=== PATIENT | male | born 1975 | race Caucasian/White ===

== ENCOUNTER → 2018-07-08 11:33 | Outpatient (CLI) | payer BC, SELFPAY ==
--- NOTE | 2018-07-08 12:35 | EKG12_ITS ---
Test Reason : PRE OP Blood Pressure : / mmHG Vent. Rate : 072 BPM Atrial Rate : 072 BPM P-R Int : 158 ms QRS Dur : 094 ms QT Int : 378 ms P-R-T Axes : 029 030 014 degrees QTc Int : 413 ms Normal sinus rhythm Normal ECG Confirmed by MARYCHUY WEIR, LORENE ([id number]), business editor NEO PRESSLEY ([id number]) on 07/09/2018 10:47:03 AM Referred By: Murray Barkley Confirmed By:LORENE PERRIN MD
[2018-07-08 12:53] LABS: Hematocrit 46.2 % (40-54); Hemoglobin 16.3 g/dl (13.0-16.5); Mean Corp Hgb Conc 35.3 g/gl (32-36); Mean Corpuscular Hgb 33.1 pg (27.0-32.0); Mean Corpuscular Volume 93.7 fL (80-94); Mean Platelet Vol. 10.8 fl (6.2-12.0); Platelet Count 219 K/mm3 (150-450); RBC Distribution Width CV 12.5 % (11.6-14.6); RBC Distribution Width SD 41.9 fl (35.1-43.9); Red Blood Count 4.93 M/mm3 (4.6-6.2); White Blood Count 5.7 K/mm3 (4.4-11.0)
[2018-07-08 12:58] LABS: Scan Indicated on CBC? Y/N NO
[2018-07-08 13:18] LABS: Anion Gap 6 (5-15); BUN 17 mg/dL (7-18); BUN/Creat Ratio 21.5 RATIO (10-20); Calcium,Total 8.9 mg/dL (8.5-10.1); Chloride 108 mmol/L (98-107); Creatinine, Serum 0.79 mg/dL (0.70-1.30); EST Glomerular Filtration Rate 115 mL/min (>60); Est Glom Filt Rate - Afr Amer 140 mL/min (>60); Glucose 101 mg/dL (74-106); Potassium 3.7 mmol/L (3.5-5.1); Sodium Level 141 mmol/L (136-145)
== END ==
PROVIDERS: Family Provider Family Medicine; PCP Family Medicine; Referring Provider Orthopaedic Surgery; Visit Provider Orthopaedic Surgery
DX: Z01.818 Encounter for other preprocedural examination (principal); S46.012A Strain of muscle(s) and tendon(s) of the rotator cuff of left shoulder, initial encounter; X58.XXXA Exposure to other specified factors, initial encounter; Y93.9 Activity, unspecified; Y92.9 Unspecified place or not applicable; Y99.9 Unspecified external cause status; I10 Essential (primary) hypertension; E66.9 Obesity, unspecified
CPT/HCPCS: 36415; 80048; 85027; 93005

== ENCOUNTER → 2019-02-18 15:10 | Outpatient (CLI) | payer BC, SELFPAY ==
--- NOTE | 2019-02-18 10:10 | SEP_PTH ---
PATIENT: DAILY SANDOVAL [facility] U#:[id number] AGE/SX: 49/M ROOM: RE02/18/[address]: Dr. Sherif Farias MD : 1975 BED: DIS: SPEC #: [id number] RECD: 02/19/19 00:00 STATUS: NURA EDWARD #: [id number] DESMOND: 02/18/19 10:[address]: Sherif Farias DEPT: SURGICAL PATHOLOGY RECD BY: Rosales Villavicencio ENTERED: 02/20/19 11:14 SP TYPE: SEPTUM OTHR DR: Dr. Catarino Jewell MD [facility] Tissues: Nasal septum, NOS Procedures: Decalcification bone/plaque Surgery Specimen Level III HEADER OPERATION: Septoplasty, submucous resection of inferior turbinates PRE-OP DIAGNOSIS: Deviated nasal septum, nasal congestion, hypertrophy of nasal turbinates TISSUE SUBMITTED: Septum MICROSCOPIC DIAGNOSIS Nasal septum: Fragments of cartilage and bone, clinically deviated nasal septum. SJ:micheline 02/26/19 MICROSCOPIC DESCRIPTION Slides are reviewed. GROSS DESCRIPTION Received is one container labeled with the patient's name and not further designated. The specimen consists of multiple pieces of bone and cartilage measuring in aggregate 1.5 x 1 x 0.2 cm. The entire specimen is submitted in one cassette after decalcification. / CANDIDO:micheline 02/20/19 TC:5 CPT: 80215, 93149
== END ==
PROVIDERS: Family Provider Family Medicine; PCP Family Medicine; Referring Provider Otolaryngology Otolaryngology/Facial Plastic Surgery; Visit Provider Otolaryngology Otolaryngology/Facial Plastic Surgery
DX: J34.2 Deviated nasal septum (principal); R09.81 Nasal congestion; J34.3 Hypertrophy of nasal turbinates
CPT/HCPCS: 88304; 88311

== ENCOUNTER 2021-02-27 13:06 | Emergency (ER) | payer MEDICAID, SELFPAY ==
[2021-02-27 13:07] VITALS: BP 164/96; PULSE 89; RESP 18; TEMP 36.7; O2SAT 98; BMI 40.0
--- NOTE | 2021-02-27 13:22 | CT_ITS ---
STUDY: CT CHEST, ABDOMEN T PELVIS WITH CONTRAST REASON FOR EXAM: Male, 45 years old. [facility] RADIATION DOSAGE (If Supplied By Facility): CTDIvol = ( 23.48 ) mGy, DLP = ( 2535.45 ) mGycm TECHNIQUE: Transaxial imaging was performed following intravenous administration of IV 100mL Isovue-370. Individualized dose optimization techniques were used for this CT. COMPARISON: No relevant priors. FINDINGS: CHEST The lungs are normal. There is no demonstrated pleural abnormality. Normal heart and pericardium. Normal mediastinum. Normal hilar regions. Normal unenhanced pulmonary arteries. Normal aorta arch and descending thoracic aorta. Normal osseous structures. There is no demonstrated abnormality of the visualized upper abdomen. ABDOMEN The visualized lung bases are unremarkable. The visualized portions of the heart are within normal limits. Normal liver. Normal gallbladder and extrahepatic biliary system. Normal spleen. Normal pancreas. Normal bilateral adrenal glands. Normal right kidney. Normal left kidney. Normal visualized stomach. Normal small intestine. Normal colon. The appendix is visualized and appears normal. Normal abdominal aorta. Normal inferior vena cava. Normal retroperitoneum. Normal abdominal wall. Normal osseous structures. PELVIS Normal urinary bladder. Normal visualized small intestine. Normal visualized colon. There is no pelvic fluid. There is no pelvic lymphadenopathy or mass lesion. Normal visualized pelvic arteries. Normal abdominal wall. Normal osseous structures. CT/CT Chest, Abd, Pel w/Contrast IMPRESSION: Normal enhanced CT chest, abdomen T pelvis examination. Electronically Signed: James Mariee MD at 15:19 EST Tel , Service support ,
--- NOTE | 2021-02-27 13:29 | EDS_ITS ---
HPI History of Present Illness Chief Complaint: Fall Detail of Chief Complaint: Fall off ladder and left chest pain Informant: patient Narrative Narrative: Patient presents to the emergency department with complaint of falling off of a ladder about 2 hours ago. Patient states that he was working at a height of about 14 feet but his foot level was maybe 7 to 10 feet off the ground when he lost his balance and fell onto his left side. He denies striking his head or loss of consciousness. He denies any neck pain. He complains of pain in his left ribs with cough and deep breath and movement. Patient denies significant abdominal pain. He has been ambulatory. He does not want to lay down states that that causes more pain if he tries to lay down. PFSH PFSH Medical History no medical history Home Medications oxycodone-acetaminophen 1 tab PO Q6H PRN PRN 5 Days #20 tablet 02/27/21 [Rx Last Taken Unknown] Allergy/AdvReac Type Severity Reaction Status Date / Time bee venom protein (honey bee) Allergy Anaphylaxis Verified 02/27/21 13:10 Penicillins Allergy Rash Verified 02/27/21 13:10 shellfish derived Allergy Anaphylaxis Verified 02/27/21 13:10 Social History Smoking Status: Unknown if ever smoked ROS ROS ED Constitutional Constitutional ED: Reports systems reviewed and no addt'l complaints, except as documented; Denies body ache(s), change in weight or chills Eyes Eyes: Denies acute decrease in peripheral vision, change in vision, double vision or loss of vision ENT ENT ED: Reports none; Denies ear pain, lip swelling, loss taste/smell, neck pain, otalgia or sore throat Cardiovascular Cardiovascular: Reports none and chest pain; Denies abdominal pain, chest pain with activity, leg edema, lightheadedness, palpitations, rapid heart rate or syncope Respiratory/Chest Respiratory/Chest: Reports none; Denies change in mental status, dry cough, dyspnea, hemoptysis, shortness of breath at rest or shortness of breath with exertion Gastrointestinal Gastrointestinal: Reports none; Denies abdominal pain, change in stool character, diarrhea, hematemesis, hematochezia, melena, rectal bleeding or vomiting Genitourinary Genitourinary ED: Reports none; Denies abdominal discomfort, anuria, dysuria, genital pain or polyuria Musculoskeletal Musculoskeletal: Reports none; Denies arthralgias, back pain, difficulty walking, extremity pain, muscle weakness or myalgias Integumentary Reports none; Denies abscess or rash Neurologic Neurologic: Reports none; Denies abnormal gait, confusion, focal weakness, frequent falls, headache(s), loss of vision, numbness, paresthesias, radicular pain, vertigo or weakness Psychiatric Psychiatric: Reports systems reviewed and no addt'l complaints, except as documented and none; Denies behavioral changes, confusion, difficulty concentrating, hallucinations, suicidal ideation, tactile hallucinations or visual hallucinations Endocrine Endocrinology: Denies none, cold intolerance, excessive sweating, fatigue or heat intolerance Hematologic/Lymphatic Hematologic/Lymphatic: Reports none; Denies anemia, easy bleeding or easy bruising Allergic/Immunologic Allergic/Immunologic ED: Denies as per HPI, none, lip swelling, mouth swelling, throat swelling, tongue swelling or hives EXAM Physical Exam Const Vital Signs: 02/27/21 13:07 02/27/21 13:15 02/27/21 15:31 Temperature 98.0 F Temperature Source Temporal Pulse Rate 89 Respiratory Rate 18 18 Respiratory Effort Short of Breath Labored Blood Pressure 164/96 H Blood Pressure Mean 118 Pulse Ox 98 Oxygen Delivery Method Room Air Positive well nourished and well developed General Appearance ED: well developed and NAD HEENT Reports TM's clear and moist mucous membranes normocephalic and atraumatic; Negative for trauma or tenderness Tympanic Membrane ED: Yes TM's clear Eyes PERRL and EOMs intact bilaterally General Eye ED: Negative for pale conjunctiva or scleral icterus Neck no lymphadenopathy, supple and no JVD General: Negative for tenderness Chest Wall inspection of chest normal and palpation of chest normal Chest: Negative for tenderness Resp normal respiratory effort and clear to auscultation bilaterally Effort and Inspection: Negative for respiratory distress or pain with movement Auscultation: Negative for rhonchi, wheezes or diminished lung sounds Cardio regular rate, regular rhythm, S1 normal heart sound, S2 normal heart sound and no murmurs Peripheral Pulses: pulses 2+ throughout GI normal to inspection, nondistended, normoactive bowel sounds, soft to palpation, non-tender, non-distended and no masses Back/Spine no CVA tenderness and no thoracic nor lumbar tenderness Back/Spine Narrative: Patient with tenderness palpation over the left posterior ribs diffusely. No ecchymosis or bruising noted. There is no crepitus or subcu emphysema noted. Patient has mild CVA tenderness on the left. Extremity normal to inspection General Extremety ED: Negative for edema General Extremity: Negative for edema Neuro oriented x3, CN's II-XII intact bilaterally, no sensory deficits noted and gait normal Sensorium / Orientation: awake, alert, oriented to person, oriented to place and oriented to time Motor Exam: strength 5/5 throughout and strength abnormal Psych mental status grossly normal Skin no rashes or lesions noted and no wounds MDM MDM MDM Narrative Medical decision making narrative: IV line established on arrival. Patient was medicated with Dilaudid and Zofran. He had some relief with that and was able to lay in the bed. He was given a second dose of Dilaudid [address] scan of the abdomen pelvis ordered which radiology read as normal. Patient had a CT scan of the chest also that they read as normal. On my evaluation of the CT however patient definitively has a left posterior nondisplaced rib fracture I believe its rib 6 and I will have radiology look at it again. Clinically he will be treated with pain meds and advised to follow-up with primary care physician. Patient to return if increasing pain, hemoptysis, shortness of breath, or condition worsen anyway. Lab Data Attestation: I reviewed the patient's lab results. Labs: Laboratory Results - last 24 hr 02/27/21 02/27/21 13:40 13:40 WBC 6.2 RBC 4.63 Hgb 15.5 Hct 43.9 MCV 94.8 H MCH 33.5 H MCHC 35.3 RDW Std Deviation 42.4 RDW Coeff of Yuridia 12.3 Plt Count 237 MPV 10.4 Immature Gran % (Auto) 0.800 Neut % (Auto) 59.4 Lymph % (Auto) 29.9 [place] % (Auto) 6.7 Eos % (Auto) 2.9 Baso % (Auto) 0.3 Absolute Neuts (auto) 3.7 Absolute Lymphs (auto) 1.84 Nucleated RBC % 0 Sodium 141 Potassium 4.0 Chloride 109 H Carbon Dioxide 25.0 Anion Gap 7 BUN 19 H Creatinine 0.87 Estim Creat Clear Calc 120.17 Est GFR (MDRD) Af Amer 124 Est GFR (MDRD) Non-Af 102 BUN/Creatinine Ratio 21.9 H Glucose 112 H Calcium 8.6 Radiography Diagnostic Testing: Clinical Impression(s) from Imaging Studies Chest/Abdomen/Pelvis CT 02/27/21 13:22 IMPRESSION: Normal enhanced CT chest, abdomen T pelvis examination. Electronically Signed: James Mariee MD at 15:19 EST Tel , Service support , Discharge Plan Triage Chief Complaint: Fall ED Provider: Mabel Cr Dx/Rx/DC Orders Clinical Impression: Fracture of rib, Fall Instructions: ED Mechanical Fall, ED Rib Fracture Prescriptions: New oxycodone-acetaminophen [oxycodone-acetaminophen] 1 TABLET tablet 1 tab PO Q6H PRN PRN (Reason: pain) 5 Days Qty: 20 RF: 0 Referrals: CHANNING SHIPLEY [Other] Disposition Disposition: Home, Self Care
[2021-02-27] MEDS: HYDROmorphone 1 MG/ML Syringe IV ×2 (13:38→15:31)
[2021-02-27] MEDS: Ondansetron 4 MG/2 ML Vial IV (13:38)
[2021-02-27 13:45] LABS: Absolute Lymphocyte Count 1.84 X10^3/uL (0.83-4.51); Absolute Neutrophil Count 3.7 X10^3/uL (2.0-7.7); Basophil# 0.02 X10^3/uL; Basophil% 0.3 % (0-1); Eosinophil# 0.18 X10^3/uL; Eosinophils% 2.9 % (0-5); Hematocrit 43.9 % (40-54); Hemoglobin 15.5 g/dL (13.0-16.5); Lymphocyte # 1.84 X10^3/ul (0.83-4.51); Lymphocyte % 29.9 % (19-41); Mean Corp Hgb Conc 35.3 g/dL (32-36); Mean Corpuscular Hgb 33.5 pg (27.0-32.0); Mean Corpuscular Volume 94.8 fL (80-94); Mean Platelet Vol. 10.4 fl (6.2-12.0); Monocyte# 0.41 X10^3/uL; Monocyte% 6.7 % (0-10); NRBC Flagged by Analyzer 0 % (0-5); Neutrophil # 3.66 X10^3/uL (2.7-7.7); Neutrophil % 59.4 % (47-70); Platelet Count 237 K/mm3 (150-450); RBC Distribution Width CV 12.3 % (11.6-14.6); RBC Distribution Width SD 42.4 fl (35.1-43.9); Red Blood Count 4.63 M/mm3 (4.6-6.2); White Blood Count 6.2 K/mm3 (4.4-11.0)
[2021-02-27 14:02] LABS: Anion Gap 7 (5-15); BUN 19 mg/dL (7-18); BUN/Creat Ratio 21.9 RATIO (10-20); Calcium,Total 8.6 mg/dL (8.5-10.1); Chloride 109 mmol/L (98-107); Creatinine, Serum 0.87 mg/dL (0.70-1.30); EST Glomerular Filtration Rate 102 mL/min (>60); Est Glom Filt Rate - Afr Amer 124 mL/min (>60); Estimated Creatinine Clearance 120.17 ml/min; Glucose 112 mg/dL (74-106); Sodium Level 141 mmol/L (136-145)
[2021-02-27] MEDS: 0.9% Normal Saline 1,000 ML 150 ML IV (14:14)
[2021-02-27 15:31] VITALS: RESP 18
== END 2021-02-27 16:01 | disposition home or self-care (01) ==
PROVIDERS: Emergency Provider Emergency Medicine; Visit Provider Emergency Medicine
DX: S22.32XA Fracture of one rib, left side, initial encounter for closed fracture (principal); W11.XXXA Fall on and from ladder, initial encounter; Y93.89 Activity, other specified
CPT/HCPCS: 71260; 74177; 80048; 85025; 99283; J7030; Q9967; A4216; J2405

== ENCOUNTER → 2021-08-11 | Outpatient (CLI) | payer OTHER, SELFPAY | END | disposition home or self-care (01) | LOC: SL 20:10 | PROVIDERS: PCP Nurse Practitioner Family; Referring Provider Nurse Practitioner Family; Visit Provider Nurse Practitioner Family | DX: G47.33 Obstructive sleep apnea (adult) (pediatric) (principal) | CPT/HCPCS: 95811 ==

== ENCOUNTER → 2021-08-23 | Outpatient (CLI) | payer OTHER, SELFPAY ==
[2021-08-23 12:26] LABS: Absolute Lymphocyte Count 1.47 X10^3/uL (0.83-4.51); Absolute Neutrophil Count 1.5 X10^3/uL (2.0-7.7); Basophil# 0.02 X10^3/uL; Basophil% 0.6 % (0-1); Eosinophil# 0.15 X10^3/uL; Eosinophils% 4.2 % (0-5); Hematocrit 40.7 % (40-54); Hemoglobin 14.4 g/dL (13.0-16.5); Lymphocyte # 1.47 X10^3/ul (0.83-4.51); Lymphocyte % 41.1 % (19-41); Mean Corp Hgb Conc 35.4 g/dL (32-36); Mean Corpuscular Hgb 34.1 pg (27.0-32.0); Mean Corpuscular Volume 96.4 fL (80-94); Mean Platelet Vol. 11.4 fl (6.2-12.0); Monocyte# 0.39 X10^3/uL; Monocyte% 10.9 % (0-10); NRBC Flagged by Analyzer 0 % (0-5); Neutrophil # 1.54 X10^3/uL (2.7-7.7); Neutrophil % 42.9 % (47-70); Platelet Count 196 K/mm3 (150-450); RBC Distribution Width CV 12.8 % (11.6-14.6); RBC Distribution Width SD 45.7 fl (35.1-43.9); Red Blood Count 4.22 M/mm3 (4.6-6.2); White Blood Count 3.6 K/mm3 (4.4-11.0)
[2021-08-23 12:59] LABS: ALB/GLOB Ratio 1.1 RATIO (0.9-2.4); AST(SGOT) 26 U/L (15-37); Alanine Aminotransfer ALT/SGPT 50 U/L (16-61); Albumin, Serum 3.4 g/dL (3.2-5.0); Alkaline Phosphatase 84 U/L (45-117); Anion Gap 6 (5-15); BUN 16 mg/dL (7-18); BUN/Creat Ratio 18.8 RATIO (10-20); Calcium,Total 8.3 mg/dL (8.5-10.1); Chloride 110 mmol/L (98-107); Cholesterol 167 mg/dL (200); Creatinine, Serum 0.85 mg/dL (0.70-1.30); EST Glomerular Filtration Rate 104 mL/min (>60); Est Glom Filt Rate - Afr Amer 126 mL/min (>60); Globulin 3.1 g/dL (2.2-4.2); Glucose 96 mg/dL (74-106); High Density Lipoprotein 58 mg/dL; Potassium 3.8 mmol/L (3.5-5.1); Protein, Total 6.5 g/dL (6.4-8.2); Sodium Level 139 mmol/L (136-145); Thyroid Stim Hormone (TSH) 1.37 uIU/mL (0.358-3.74); Triglycerides 120 mg/dL; Very Low Density Lipoprotein 24 mg/dL (5-40)
== END | disposition home or self-care (01) ==
LOC: BIMLAB 08:04
PROVIDERS: PCP Nurse Practitioner Family; Visit Provider Nurse Practitioner Family
DX: Z00.00 Encounter for general adult medical examination without abnormal findings (principal); I10 Essential (primary) hypertension; F41.8 Other specified anxiety disorders
CPT/HCPCS: 36415; 80053; 80061; 84443; 85025

== ENCOUNTER → 2022-04-10 | Outpatient (CLI) | payer OTHER, SELFPAY ==
[2022-04-10 12:27] LABS: Absolute Lymphocyte Count 1.62 X10^3/uL (0.83-4.51); Absolute Neutrophil Count 2.3 X10^3/uL (2.0-7.7); Basophil# 0.02 X10^3/uL; Basophil% 0.4 % (0-1); Eosinophil# 0.19 X10^3/uL; Eosinophils% 4.2 % (0-5); Hematocrit 45.7 % (40-54); Hemoglobin 15.3 g/dL (13.0-16.5); Lymphocyte # 1.62 X10^3/ul (0.83-4.51); Lymphocyte % 35.8 % (19-41); Mean Corp Hgb Conc 33.5 g/dL (32-36); Mean Corpuscular Hgb 32.3 pg (27.0-32.0); Mean Corpuscular Volume 96.6 fL (80-94); Mean Platelet Vol. 11.6 fl (6.2-12.0); Monocyte# 0.42 X10^3/uL; Monocyte% 9.3 % (0-10); NRBC Flagged by Analyzer 0 % (0-5); Neutrophil # 2.26 X10^3/uL (2.7-7.7); Neutrophil % 49.9 % (47-70); Platelet Count 193 K/mm3 (150-450); RBC Distribution Width CV 13.1 % (11.6-14.6); RBC Distribution Width SD 46.5 fl (35.1-43.9); Red Blood Count 4.73 M/mm3 (4.6-6.2); White Blood Count 4.5 K/mm3 (4.4-11.0)
== END | disposition home or self-care (01) ==
LOC: BIMLAB 08:11
PROVIDERS: PCP Nurse Practitioner Family; Referring Provider Nurse Practitioner Family; Visit Provider Nurse Practitioner Family
DX: D70.9 Neutropenia, unspecified (principal)
CPT/HCPCS: 36415; 85025

== ENCOUNTER → 2022-04-20 | Outpatient (CLI) | payer OTHER, SELFPAY ==
[2022-04-20 12:23] LABS: Anion Gap 10 (5-15); BUN 15 mg/dL (7-18); BUN/Creat Ratio 13.6 RATIO (10-20); Calcium,Total 9.4 mg/dL (8.5-10.1); Chloride 96 mmol/L (98-107); EST Glomerular Filtration Rate 77 mL/min (>60); Est Glom Filt Rate - Afr Amer 93 mL/min (>60); Glucose 104 mg/dL (74-106); Potassium 3.4 mmol/L (3.5-5.1); Sodium Level 134 mmol/L (136-145)
== END | disposition home or self-care (01) ==
LOC: BIMLAB 08:59
PROVIDERS: PCP Nurse Practitioner Family; Referring Provider Nurse Practitioner Family; Visit Provider Nurse Practitioner Family
DX: I10 Essential (primary) hypertension (principal)
CPT/HCPCS: 36415; 80048

== ENCOUNTER → 2022-05-23 | Outpatient (CLI) | payer OTHER, SELFPAY ==
[2022-05-23 12:43] LABS: Anion Gap 6 (5-15); BUN 16 mg/dL (7-18); Calcium,Total 9.1 mg/dL (8.5-10.1); Chloride 104 mmol/L (98-107); Creatinine, Serum 0.94 mg/dL (0.70-1.30); EST Glomerular Filtration Rate 93 mL/min (>60); Est Glom Filt Rate - Afr Amer 112 mL/min (>60); Glucose 94 mg/dL (74-106); Sodium Level 137 mmol/L (136-145)
[2022-05-23 12:48] LABS: Vitamin B12 620 pg/mL (211-911); Vitamin D,25 Hydroxy 38.8 ng/mL
== END | disposition home or self-care (01) ==
LOC: BIMLAB 10:02
PROVIDERS: PCP Nurse Practitioner Family; Referring Provider Nurse Practitioner Family; Visit Provider Nurse Practitioner Family
DX: I10 Essential (primary) hypertension (principal); E56.9 Vitamin deficiency, unspecified
CPT/HCPCS: 36415; 80048; 82306; 82607

== ENCOUNTER → 2022-06-28 | Outpatient (CLI) | payer OTHER, SELFPAY ==
[2022-06-28 16:03] LABS: Anion Gap 8 (5-15); BUN 13 mg/dL (7-18); BUN/Creat Ratio 14.5 RATIO (10-20); Calcium,Total 9.6 mg/dL (8.5-10.1); Chloride 103 mmol/L (98-107); EST Glomerular Filtration Rate 98 mL/min (>60); Est Glom Filt Rate - Afr Amer 118 mL/min (>60); Glucose 79 mg/dL (74-106); Potassium 3.4 mmol/L (3.5-5.1); Sodium Level 140 mmol/L (136-145)
== END | disposition home or self-care (01) ==
LOC: BIMLAB 12:36
PROVIDERS: PCP Nurse Practitioner Family; Referring Provider Nurse Practitioner Family; Visit Provider Nurse Practitioner Family
DX: E87.6 Hypokalemia (principal)
CPT/HCPCS: 36415; 80048

== ENCOUNTER → 2022-11-10 | Outpatient (CLI) | payer OTHER, SELFPAY ==
[2022-11-10 10:48] LABS: Anion Gap 4 (5-15); BUN 14 mg/dL (7-18); BUN/Creat Ratio 14.7 RATIO (10-20); Calcium,Total 8.7 mg/dL (8.5-10.1); Chloride 111 mmol/L (98-107); Creatinine, Serum 0.95 mg/dL (0.70-1.30); EST Glomerular Filtration Rate 91 mL/min (>60); Est Glom Filt Rate - Afr Amer 110 mL/min (>60); Glucose 96 mg/dL (74-106); Potassium 3.9 mmol/L (3.5-5.1); Sodium Level 141 mmol/L (136-145)
== END | disposition home or self-care (01) ==
LOC: MTLAB 08:38
PROVIDERS: PCP Nurse Practitioner Family; Referring Provider Orthopaedic Surgery; Visit Provider Orthopaedic Surgery
DX: Z51.81 Encounter for therapeutic drug level monitoring (principal); Z79.1 Long term (current) use of non-steroidal anti-inflammatories (NSAID)
CPT/HCPCS: 36415; 80048

== ENCOUNTER 2022-11-27 14:30 | Outpatient (RCR) | payer OTHER, SELFPAY ==
--- NOTE | 2022-11-14 13:44 | HP.PTEVAL_ITS ---
Patient's Visit Information Visit Information Visit Information: DAILY SANDOVAL is a 46 year old M referred to Physical Therapy by Dr. Logan Al DO with a diagnosis of Right Shoulder OA. 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 He has limited his mobility- but he has a lot of pain with it. He pushes through the pain. Saw Dr. Wall last week- had another injection-25% helped- it has taken sharp/stabbing now to constant dull pain. 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 Eases: keeping it close to the body, no lifting, cutting back on chores Best: 02/28. Sharp/Shooting and also dull and achy. Pain is located in the biceps and radiates to the anterior deltoid- has not radiated past the elbow in the last couple of months- right hand dominate. no N/T in the fingers. No increase HACKETT, blurred vision or dizziness. No new neck pain but does have some residual neck pain. 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 He has had x-ray but no MRI at this point. [id number] he had a Bicep Tenodesis and Labral Repair by Dr. Barkley. He is taking Meloxicam which has been helping. Sleep: not recently- side sleeper- with hand over head but not as much anymore. 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 From day of Injury to Back to Normal he feels that its 50% back to normal. PMHx/Meds: no changes than are in the chart. Objective Objective: Posture: FH, RS- can correct but does not maintain- mild guarding of the right UE Gait: good arm swing and trunk rotation Palpation: tender along bicipital groove to the AC joint ROM: Cervical: WFL, Shoulder: WFL in all planes- painful arc in abduction and flexion- and end range IR behind the back, Elbow/Wrist/Hand: WFL Strength: Credit Report Checker: 120 Right , 130 Left, Elbow: 4+/5, Shoulder: Extn: 4+/5, Abd: 4+/5, Add: 4+/5, IR/ER: 4/5, Flex: 4+/5 all with mild discomfort, Scap: fair minus. Flex: UT: mod Levator: mod Special Tests R Shoulder Empty Can - SS: Positive R Shoulder Belly Press - SupScap: Positive R Shoulder Neer - Impingement: Positive R Shoulder Winkler Colten - Impingement: Positive Balance/Special Test Scores Quick DASH Score: 47.7250 Goals Goal 1:: Patient will be I with HEP and progression Goal Time Frame: 4-6 Weeks Goal 2:: Patient will maintain proper posture t/o tx session to demo increased scap s/s Goal Time Frame: 4-6 Weeks Goal 3:: Patient will demo full AROM with the right shoulder without pain Goal Time Frame: 4-6 Weeks Goal 4:: Patient will report 80% improvement Goal Time Frame: 4-6 Weeks Rehabilitation Potential Physical Therapy Diagnosis: Patient presents with hypomobility- he has decreased pain free ROM- scapular strength/stabilization and muscular endurance leading to poor posture and increased pain with ADL's. Rehabilitation Potential: Good Anticipated Interventions Patient/Client Instruction: Educate patient on: Benefits of Fitness Program Therapeutic Exercise to Include: Strength training, Endurance training, Body mechanics, Postural training, Flexibilty training, Dynamic Lumbar Stabilization and Scapular Strength/Stabilization TENS: Yes Cryotherapy (ice pack, ice massage): Yes Thermo therapy (hot pack): Yes Ultrasound (thermal/non thermal): Yes Text: Thank you for the opportunity to evaluate your patient. For Medicare and Medicare HMO plans, please review the plan of care and approve it. It will need to be FAXED BACK to us at [phone] for Medicare purposes. For Medicare only, by signing this I certify the plan of care. Please let me know if there are questions or concerns regarding this plan of care. Physician Signature: Date:
--- NOTE | 2023-05-01 16:47 | HP.PT.NRP ---
Patient Information Patient Information: DAILY SANDOVAL was seen in my office for initial evaluation on 11/14/22. The following Plan of Care was established for this patient: POC Established Initial Frequency: 2x /Week Initial Duration: 4 Weeks Anticipated Interventions Patient/Client Instruction: Educate patient on: Benefits of Fitness Program Therapeutic Exercise to Include: Strength training, Endurance training, Body mechanics, Postural training, Flexibilty training, Dynamic Lumbar Stabilization and Scapular Strength/Stabilization TENS: Yes Cryotherapy (ice pack, ice massage): Yes Thermo therapy (hot pack): Yes Ultrasound (thermal/non thermal): Yes Last Seen Last Seen: This patient was last seen in our office . Pertinent comments regarding their Physical therapy will appear below: Patient has not attended PT in over 3 months- appropriate to be d/c at this time. At this point I will be discontinuing this patient from physical therapy. I would be happy to see this patient again in the future if found appropriate by the physician. Thank you! Cathi Sabillon, JESSET Balance/Gait/Functional tests Balance/Special Test Scores Quick DASH Score: 47.7261
== END 2022-11-27 19:00 | disposition home or self-care (01) ==
LOC: PT 14:30
PROVIDERS: PCP Nurse Practitioner Family; Referring Provider Orthopaedic Surgery; Visit Provider Orthopaedic Surgery
DX: M19.011 Primary osteoarthritis, right shoulder (principal)
CPT/HCPCS: 97110; 97162; J2405

== ENCOUNTER → 2023-03-07 | Outpatient (CLI) | payer OTHER, SELFPAY ==
--- OUTSIDE RECORDS SUMMARY | 2023-03-07 12:15 | XMS RPT_ITS | CCD ---
Author Name Unknown Address [address] [place] [address] Organization [facility] Care Team Providers Care Bus And Rail Operator Name Role Phone Quinten, Renée Primary Care Provider [phone] Quinten, Renée Primary Care Provider Quinten, Renée Unavailable Quinten, Renée Primary Care Provider Quinten, Renée Unavailable Quinten WEIR, Renée Primary Care Provider Quinten MD, Renée Unavailable QUINTEN, RENÉE Admitting Unavailable QUINTEN, RENÉE Primary Care Unavailable QUINTEN, RENÉE Admitting Unavailable QUINTEN, RENÉE Primary Care Unavailable INSTRUMENTATION ENGINEERING TECHNICIAN, DONNAMARIE Admitting Unavailable INSTRUMENTATION ENGINEERING TECHNICIAN, DONNAMARIE Attending Unavailable QUINTEN, RENÉE Primary Care Unavailable INSTRUMENTATION ENGINEERING TECHNICIAN, DONNAMARIE Admitting Unavailable INSTRUMENTATION ENGINEERING TECHNICIAN, DONNAMARIE Referring Unavailable QUINTEN, RENÉE Primary Care Unavailable KARYN RENE Attending Unavailabl e Quinten WEIR, Renée Primary Care Provider Quinten MD, Renée Unavailable Quinten MD, Renée Unavailable QUINTEN, RENÉE Primary Care Unavailable QUINTEN, RENÉE Attending Unavailable QUINTEN, RENÉE Primary Care Unavailable NORMAN PRESSLEY Attending Unavailable QUINTEN, RENÉE Primary Care Unavailable NORMAN PRESSLEY Attending Unavailable QUINTEN, RENÉE Primary Care Unavailable QUINTEN, RENÉE Admitting Unavailable INSTRUMENTATION ENGINEERING TECHNICIAN, DONNAMARIE Attending Unavailable QUINTEN, RENÉE Referring Unavailable QUINTEN, RENÉE Primary Care Unavailable INSTRUMENTATION ENGINEERING TECHNICIAN, DONNAMARIE Attending Unavailable QUINTEN, RENÉE Primary Care Unavailable QUINTEN, RENÉE Attending Unavailable QUINTEN, RENÉE Primary Care Unavailable QUINTEN, RENÉE Attending Unavailable QUINTEN, RENÉE Primary Care Unavailable QUINTEN, RENÉE Referring Unavailable QUINTEN, RENÉE Attending Unavailable QUINTEN, RENÉE Primary Care Unavailable INSTRUMENTATION ENGINEERING TECHNICIAN, DONNAMARIE Admitting Unavailable QUINTEN, RENÉE Primary Care Unavailable INSTRUMENTATION ENGINEERING TECHNICIAN, DONNAMARIE Referring Unavailable Allergies Allergy Classification Reported Allergen(s) Allergy Type Date of Onset Reaction(s) Facility Penicillins (antibiotic) (7 sources) Penicillins; Translations: [PENICILLINS] Drug Allergy 02-17-2020 Rash [facility] Shellfish (7 sources) Shellfish; Translations: [SHELLFISH DERIVED] Food Allergy 02-17-2020 Anaphylaxis [facility] (12 sources) Penicillins; Translations: [PENICILLINS] Propensity to adverse reactions to drug 02-17-2020 Rash [facility] (12 sources) Shellfish; Translations: [SHELLFISH DERIVED] Propensity to adverse reactions to drug 02-17-2020 Anaphylaxis [facility] (19 sources) Bee Venom Protein (Honey Bee); Translations: [BEE VENOM PROTEIN (HONEY BEE)] Propensity to adverse reactions to drug 02-17-2020 [facility] Medications Current Medications Medication Drug Class(es) Dates Sig (Normalized) Sig (Original) acetaminophen 325 mg / oxyCODONE hydrochloride 5 mg oral tablet (3 sources) Opioid Agonist Start: 03-02-2021 End: 03-07-2021 take 1 tablet by mouth every six hours as needed for pain oxyCODONE-acetamino phen (PERCOCET) 5-325 mg per tablet Indications: Closed traumatic nondisplaced fracture of rib Take 1 (one) tablet by mouth every 6 (six) hours as needed for pain . 18 tablet 0 03/02/2021 03/07/2021 Active Completed/Discontinued Medications Medication Drug Class(es) Dates Sig (Normalized) Sig (Original) calcium chloride 0.0014 meq/ml / potassium chloride 0.004 meq/ml / sodium chloride 0.103 meq/ml / sodium lactate 0.028 meq/ml injectable solution (2 sources) Start: 08-19-2020 End: 08-19-2020 take 100 mL intravenously every hour 100 mL/hr, Intravenous, Continuous, Starting on Linh 08/19/20 at 1700, PACU (only) Problems Active Problems Problem Classification Problem Date Documented Date Episodic/Chronic Anxiety disorders (17 sources) Mixed anxiety and depressive disorder; Translations: [Other specified anxiety disorders] Onset: 01-20-2020 02-17-2020 Chronic Asthma (16 sources) Mild intermittent asthma; Translations: [Mild intermittent asthma, uncomplicated] Onset: 01-20-2020 02-17-2020 Chronic Essential hypertension (20 sources) Essential hypertension; Translations: [Essential (primary) hypertension] Onset: 01-20-2020 02-17-2020 Chronic Other fractures (3 sources) Closed fracture of rib; Translations: [Fracture of one rib, unspecified side, initial encounter for closed fracture] Onset: 03-02-2021 Episodic Other nervous system disorders (1 source) Postoperative pain ; Translations: [Other acute postprocedural pain] Episodic Other nutritional; endocrine; and metabolic disorders (19 sources) Body mass index 30+ - obesity; Translations: [Obesity, unspecified] Onset: 02-17-2020 02-17-2020 Chronic Unclassified (7 sources) Patient encounter status; Translations: [Wellness examination] Onset: 02-17-2020 02-17-2020 Past or Other Problems Problem Classification Problem Date Documented Date Episodic/Chronic Abdominal hernia (14 sources) Hernia of anterior abdominal wall; Translations: [Ventral hernia without obstruction or gangrene] Onset: 08-10-2020 Episodic Residual codes; unclassified (8 sources) History of hernia repair; Translations: [Other specified postprocedural states] Onset: 08-31-2020 Episodic Results Test Name Value Interpretation Reference Range Facil ity Vital Signs Date Time Vital Sign Value Performing Clinician Faci lity 03-02-2021 15:50-0500 Body height 180.3 cm Renée Shipley MD Work Phone: [facility] 03-02-2021 15:50-0500 Body mass index (BMI) [Ratio] 42.22 kg/m2 Renée Shipley MD Work Phone: [facility] 03-02-2021 15:50-0500 Body temperature 98.91 [degF] Renée Shipley MD Work Phone: [facility] 03-02-2021 15:50-0500 Body weight 137.3 kg Renée Shipley MD Work Phone: [facility] 03-02-2021 15:50-0500 Diastolic blood pressure 83 mm[Hg] Renée Shipley MD Work Phone: [facility] 03-02-2021 15:50-0500 Heart rate 83 /min Renée Shipley MD Work Phone: [facility] 03-02-2021 15:50-0500 Respiratory rate 18 /min Renée Shipley MD Work Phone: [facility] 03-02-2021 15:50-0500 SaO2% (BldA) [Mass fraction] 95 % Renée Shipley MD Work Phone: [facility] 03-02-2021 15:50-0500 Systolic blood pressure 118 mm[Hg] Renée Shipley MD Work Phone: [facility] 08-31-2020 13:22-0400 Body mass index (BMI) [Ratio] 39.47 kg/m2 Sandra Wellington MD Work Phone: [facility] 08-31-2020 13:22-0400 Body weight 128.37 kg Sandra Wellington MD Work Phone: [facility] 08-31-2020 13:22-0400 Diastolic blood pressure 92 mm[Hg] Sandra Wellington MD Work Phone: [facility] 08-31-2020 13:22-0400 Heart rate 92 /min Sandra Wellington MD Work Phone: [facility] 08-31-2020 13:22-0400 Systolic blood pressure 136 mm[Hg] Sandra coleman MD Work Phone: [facility] 08-19-2020 18:03-0400 Body temperature 97.5 [degF] Sandra Wellington MD Work Phone: [facility] 08-19-2020 17:48-0400 Diastolic blood pressure 93 mm[Hg] Sandra Wellington MD Work Phone: [facility] 08-19-2020 17:48-0400 Heart rate 67 /min Sandra Wellington MD Work Phone: [facility] 08-19-2020 17:48-0400 Respiratory rate 16 /min Sandra Wellington MD Work Phone: [facility] 08-19-2020 17:48-0400 SaO2% (BldA) [Mass fraction] 98 % Sandra Wellington MD Work Phone: [facility] 08-19-2020 17:48-0400 Systolic blood pressure 142 mm[Hg] Sandra coleman MD Work Phone: [facility] 08-19-2020 10:44-0400 Body height 180.3 cm Sandra Wellington MD Work Phone: [facility] 08-19-2020 10:44-0400 Body mass index (BMI) [Ratio] 39.11 kg/m2 Sandra Wellington MD Work Phone: [facility] 08-19-2020 10:44-0400 Body weight 127.2 kg Sandra Wellington MD Work Phone: [facility] 08-10-2020 08:39-0400 Body height 180.3 cm Sandra Wellington MD Work Phone: [facility] 08-10-2020 08:39-0400 Body mass index (BMI) [Ratio] 39.33 kg/m2 Sandra Wellington MD Work Phone: [facility] 08-10-2020 08:39-0400 Body weight 127.91 kg Sandra Wellington MD Work Phone: [facility] 08-10-2020 08:39-0400 Diastolic blood pressure 87 mm[Hg] Sandra Wellington MD Work Phone: [facility] 08-10-2020 08:39-0400 Heart rate 84 /min Sandra Wellington MD Work Phone: [facility] 08-10-2020 08:39-0400 Respiratory rate 16 /min Sandra Wellington MD Work Phone: [facility] 08-10-2020 08:39-0400 SaO2% (BldA) [Mass fraction] 94 % Sandra Wellington MD Work Phone: [facility] 08-10-2020 08:39-0400 Systolic blood pressure 132 mm[Hg] Sandra coleman MD Work Phone: [facility] 05-04-2020 09:20-0400 BP Diastolic 87 mm[Hg] Renée Trevinor [facility] 05-04-2020 09:20-0400 BP Systolic 132 mm[Hg] Renée Quinten [facility] 05-04-2020 09:15-0400 BMI (Body Mass Index) 38.15 kg/m2 Renée Quinten [facility] 05-04-2020 09:15-0400 Body Temperature 98.49 [degF] Renée Quinten [facility] 05-04-2020 09:15-0400 Body weight 127.6 kg Renée Trevinor [facility] 05-04-2020 09:15-0400 Height 182.9 cm Renée Quinten [facility] 05-04-2020 09:15-0400 Pulse (Heart Rate) 83 /min Renée Trevinor [facility] 05-04-2020 09:15-0400 Pulse Oximetry 98 % Renée Trevinor [facility] 05-04-2020 09:15-0400 Respiratory Rate 18 /min Renée Trevinor [facility] 03-09-2020 09:17-0500 BP Diastolic 90 mm[Hg] Renuka Tameka [facility] 03-09-2020 09:17-0500 BP Systolic 141 mm[Hg] Renuka Tameka [facility] 03-09-2020 09:17-0500 Pulse (Heart Rate) 82 /min Renuka Tameka [facility] 03-09-2020 09:12-0500 BMI (Body Mass Index) 38.61 kg/m2 Renuka Tameka [facility] 03-09-2020 09:12-0500 Body Temperature 98.01 [degF] Renuka Tameka [facility] 03-09-2020 09:12-0500 Body weight 129.14 kg Renuka Tameka [facility] 01-19-2021 09:12-0500 Height 182.9 cm Renuka English [facility] 03-09-2020 09:12-0500 Pulse Oximetry 95 % Renuka English [facility] 03-09-2020 09:12-0500 Respiratory Rate 18 /min Renuka English [facility] 02-17-2020 08:28-0500 BP Diastolic 100 mm[Hg] Renée Trevinor [facility] 02-17-2020 08:28-0500 BP Systolic 141 mm[Hg] Renée Quinten [facility] 02-17-2020 08:24-0500 BMI (Body Mass Index) 39.2 kg/m2 Renée Trevinor [facility] 02-17-2020 08:24-0500 Body Temperature 98.91 [degF] Renée Trevinor [facility] 02-17-2020 08:24-0500 Body weight 131.09 kg Renée Trevinor [facility] 02-17-2020 08:24-0500 Height 182.9 cm Renée Shipley [facility] 02-17-2020 08:24-0500 Pulse (Heart Rate) 75 /min Renée Trevinor [facility] 02-17-2020 08:24-0500 Pulse Oximetry 97 % Renée Trevinor [facility] 02-17-2020 08:24-0500 Respiratory Rate 18 /min Renée Trevinor [facility] Encounters Encounter Date Encounter Type Care Provider Facility Start: 05-11-2021 Refill Zari Pinedo RN [facility] Start: 03-04-2021 End: 03-05-2021 ambulatory RENÉE SHIPLEY [facility] Start: 03-02-2021 End: 03-02-2021 ambulatory RENÉERAMONA SHIPLEY [facility] Start: 03-02-2021 End: 03-02-2021 Office outpatient visit 15 minutes Renée Shipley MD Work Phone: [facility] Procedures Date Procedure Procedure Detail Performing Clinician Start: 02-17-2020 Hemoglobin A1c/Hemoglobin.total in Blood Renée Shipley Work Phone: Start: 02-17-2020 Adult depression screening assessment Renée Shipley Plan of Treatment Date Care Activity Detail Author Start: 08-19-2021 Tetanus vaccination Tetanus: Every 10yrs [facility] Start: 02-16-2021 Adolescent depression screening assessment Depression Screening (PHQ9) [facility] Start: 02-16-2021 History and physical examination, annual for health maintenance Wellness Visit [facility] Start: 10-26-2020 End: 10-26-2020 Office Visit 10/26/2020 Office Visit Primary Care Renée Shipley MD [address] [facility] [address] [place] [address] [phone] [facility] Start: 10-20-2020 Influenza vaccination Sequential Influenza Vaccine (#1) [facility] Start: 08-19-2020 End: 08-19-2020 Admission to same day surgery center 08/19/2020 Surgery Sandra Wellington MD [address] [facility] [address] [place] [address] [phone] REPAIR HERNIA TRANSABDOMINAL ROBOTIC [facility] Periop Immunizations Immunization Date Immunization Notes Care Provider Fa cility 01-20-2020 influenza, injectabl e, quadrivalent, contains preservative Renée Quinten [facility] 01-20-2020 pneumococcal conjuga te vaccine, 13 valent Renée Quinten [facility] 02-28-2018 hepatitis A vaccine, adult dosage Ra nancy Quinten [facility] 08-20-2011 tetanus toxoid, redu calvin diphtheria toxoid, and acellular pertussis vaccine, adsorbed Renée Quinten [facility] Payers Date Payer Category Payer Unknown [id number] 2019 Unknown [id number] 2019 Unknown [id number] 2019 Unknown [id number] 1977 Unknown [id number] 2.16. [id number] 1977 Unknown [id number] 2.16. [id number] 1977 Unknown [id number] 2.16. [id number] 1977 Unknown [id number] 2.16. [id number] 1977 Unknown [id number] 2.16. [id number] 1977 Unknown [id number] 2.16. [id number] 1977 Unknown [id number] 2.16. [id number] 1977 Unknown [id number] 2.16. [id number] 1977 Unknown [id number] 2.16. [id number] 1977 Unknown [id number] 2.16. [id number] 1977 Unknown [id number] 2.16. [id number] 1977 Unknown [id number] 2.16. [id number] 1977 Unknown [id number] 2.16. [id number] 1977 Unknown [id number] 2.16. [id number] Social History Date Type Detail Facility Start: 03-09-2020 End: 08-12-2020 Tobacco smoking status IDIS Former smoker [facility] Start: 03-09-2020 End: 08-12-2020 Tobacco use and exposure Never used [facility] Start: 03-09-2020 End: 03-02-2021 Alcohol intake Current drinker of alcohol (finding) [facility] Start: 02-17-2020 History SDOH Alcohol Frequency 3 [facility] Start: 1975 Sex Assigned At Not on file [facility] Exposure to SARS-CoV -2 (event) Not sure [facility] End: 02-19-2018 History of tobacco use Current smoker [facility] Start: 08-10-2020 End: 08-12-2020 Cigarettes smoked current (pack per day) - Reported [facility] Start: 08-10-2020 Alcohol Comment occasionally [facility] Start: 08-12-2020 Tobacco Comment quit 2019 [facility] Medical Equipment Procedure Code Equipment Code Equipment Origin al Text Equipment Identifier Dates Mesh 4.5in Circl e Echo [address] [facility] - Sn/A [id number] Start: 08-19-2020 Clinical Notes 08-10-2020 to 05-11-2021 Telephone Encounter - Zari Pinedo RN - 05/11/2021 9:59 AM EDTTelephone Encounter - Zari Pinedo RN - 05/11/2021 9:59 AM EDTPatient Krystian Shipley MD - 03/02/2021 3:54 PM EST Note Date & Type Note Facility 05-11-2021 Telephone encounter Note RECEIVED FAX FROM PHARMACY. REQUESTING REFILL ON COZAAR. LAST OV 03/02/21. NO FUTURE VISITS SCHEDULED. [facility] 05-11-2021 Miscellaneous Notes RECEIVED FAX FROM PHARMACY. REQUESTING REFILL ON COZAAR. LAST OV 03/02/21. NO FUTURE VISITS SCHEDULED. documented in this encounter [facility] 03-02-2021 Brandy Shipley MD - 03/02/2021 5:09 PM EST Problem List Items Addressed This Visit Musculoskeletal and Integument Closed traumatic nondisplaced fracture of rib - Primary Fall occurred on 02/27/2021 CT scan showed nondisplaced fracture of sixth and seventh rib Patient states improvement in pain Will prescribe Percocets for 5 days advised patient to take ibuprofen as for breakthrough pain Advised patient to use ice packs as well Alarming/Red flag signs and symptoms discussed with the patient, patient instructed to seek medical attention at ED [facility] if any such symptoms develop. Pt expressed understanding. Relevant Medications oxyCODONE-acetaminophen (PERCOCET) 5-325 mg per tablet If any referrals were placed at the time of your visit please allow 2 weeks for processing. If you haven't heard from anyone within 2 weeks please contact my office so we can look into the status of your referral. If you were given any labs today please ensure they are completed according to the directions given. Most normal results will be available through [employer] however if abnormal, you will be notified. Please allow 48-72 hours for review, and let you know what steps, if any, are needed next. If you haven't heard from us after that please call to inquire. If labs were ordered to be done PRIOR to your next visit we will discuss the results at the time of your office visit. If any procedures or imaging studies were ordered that must be prior authorized please give us 2 weeks to get them approved. Once approved someone should call you to schedule them or give you a date and time that they were scheduled for. If you haven't heard anything within 2 weeks of the office visit please call the office so we can look into their status. Customer Service/Billing Questions: [phone] [facility] Assistance: [phone] or [phone] Financial Assistance: [phone] or [phone] documented in this encounter [facility] 03-02-2021 Miscellaneous Notes Associated Problem(s): Closed traumatic nondisplaced fracture of rib Fall occurred on 02/27/2021 CT scan showed nondisplaced fracture of sixth and seventh rib Patient states improvement in pain Will prescribe Percocets for 5 days advised patient to take ibuprofen as for breakthrough pain Advised patient to use ice packs as well Alarming/Red flag signs and symptoms discussed with the patient, patient instructed to seek medical attention at ED [facility] if any such symptoms develop. Pt expressed understanding. documented in this encounter [facility] 03-02-2021 History of Presen t illness Narrative Images from the original note were not included. Subjective Patient ID: Samson English is a 45 y.o. male. Chief Complaint Patient presents with broken ribs ER visit 3 days ago Percocet and ibuprfen being taken for pain HPI Patient is a 44-year-old male with a past medical history of hypertension, mild intermittent asthma, anxiety and depression presents for ER follow-up accompanied by his Patient was admitted to the hospital on 02/27/2021 after he had fall from ladder after working on his barn. He states he lost his footing-he denies any loss of consciousness, numbness weakness or tingling in his lower extremities, palpitations or blurry vision that led to this fall. He landed on his left side. Patient denied having any injury to his head. CT scan was completed of chest which showed nondisplaced fractures on the left sixth and seventh ribs posteriorly. Patient was discharged on Percocet and ibuprofen. He has been using ice packs as well he states that since discharge some of the pain has improved however he continues to have extreme discomfort. He has been sleeping in a recliner but states if he stays immobile for too long it takes him a very long time to get up. He also states feeling the bones move near his spine when he tries to get up from a seated position. States pain with taking a deep breath or laughing too much. Pain is currently 6 out of 10 and radiates to his chest. Denies any significant bruising on his abdomen or chest. patient denies any numbness, tingling or weakness in his arms. No abdominal pain nausea or vomiting. All pertinent positives and negatives are documented in ROS Patient's medications, allergies, past medical history, surgical history history, family history, social history were reviewed. Spent more than 15 minutes with patient, coordinating patient care, including reviewing charts and counseling patient. Past Medical History: Diagnosis Date Anxiety Asthma Hypertension Obesity Past Surgical History: Procedure Laterality Date BICEPS TENDON REPAIR Right 2003 x2 bone spur Left 2019 NASAL SEPTUM SURGERY 2019 REPAIR HERNIA TRANSABDOMINAL ROBOTIC XI N/A 08/19/2020 Procedure: REPAIR HERNIA TRANSABDOMINAL ROBOTIC XI; Surgeon: Sandra Wellington MD; Location: Main OR; Service: [employer] Family History Problem Relation Age of Onset Hypertension Mother Diabetes Father Kidney disease Father Hypertension Father Heart attack Paternal Grandmother Heart disease Sister Diabetes Sister COPD Sister smoker Social History Tobacco Use Smoking status: Former Smoker Packs/day: 0.50 Years: 20.00 Pack years: 10.00 Quit date: 2019 Years since quittin.0 Smokeless tobacco: Never Used Tobacco comment: quit 2019 Vaping Use Vaping Use: Some days Substances: Nicotine, Flavoring Devices: Pre-filled or refillable cartridge Substance Use Topics Alcohol use: Yes Comment: occasionally Drug use: Not Currently Allergies Allergen Reactions Bee Venom Protein (Honey Bee) Shellfish Derived Anaphylaxis Penicillins Rash Patient's Medications New Prescriptions OXYCODONE-ACETAMINOPHEN (PERCOCET) 5-325 MG PER TABLET Take 1 (one) tablet by mouth every 6 (six) hours as needed for pain . Previous Medications ALBUTEROL 90 MCG/ACTUATION INHALER Inhale 2 puffs every 4 (four) hours as needed . CETIRIZINE (ZYRTEC) 10 MG TABLET Take 10 mg by mouth daily . EPINEPHRINE (EPIPEN) 0.3 MG/0.3 ML ATIN Inject 0.3 mL (0.3 mg total) into the mid-thigh as needed for severe allergic reaction. . FAMOTIDINE (PEPCID) 20 MG TABLET Take 20 mg by mouth daily . LOSARTAN (COZAAR) 100 MG TABLET Take 1 (one) tablet (100 mg total) by mouth daily . SERTRALINE (ZOLOFT) 50 MG TABLET Take 1 (one) tablet (50 mg total) by mouth daily . Modified Medications No medications on file Discontinued Medications No medications on file Review of Systems Constitutional: Negative for appetite change, fatigue and fever. Eyes: Negative for visual disturbance. Respiratory: Positive for shortness of breath (Pain with inspiration). Negative for cough and wheezing. Cardiovascular: Positive for chest pain. Negative for palpitations. Gastrointestinal: Negative for abdominal pain, constipation and diarrhea. Musculoskeletal: Positive for back pain. Negative for gait problem. Left chest, and mid thoracic back pain Skin: Negative for color change, rash and wound. Neurological: Negative for dizziness, tremors, syncope, weakness, light-headedness, numbness and headaches. Hematological: Does not bruise/bleed easily. Objective Vitals: 03/02/21 1550 BP: 118/83 BP Location: Right arm Patient Position: Sitting Pulse: 83 Resp: 18 Temp: 98.9 F (37.2 C) TempSrc: Temporal SpO2: 95% Weight: (!) 137.3 kg (302 lb 11.2 oz) Height: 5' 11 Estimated body mass index is 42.22 kg/m as calculated from the following: Height as of this encounter: 5' 11 . Weight as of this encounter: 137.3 kg (302 lb 11.2 oz). Physical Exam Vitals and nursing note reviewed. Constitutional: Appearance: Normal appearance. He is obese. HENT: Head: Normocephalic and atraumatic. Mouth/Throat: Mouth: Mucous membranes are moist. Eyes: Extraocular Movements: Extraocular movements intact. Conjunctiva/sclera: Conjunctivae normal. Cardiovascular: Rate and Rhythm: Normal rate and regular rhythm. Pulses: Normal pulses. Heart sounds: Normal heart sounds, S1 normal and S2 normal. No murmur heard. Pulmonary: Effort: Pulmonary effort is normal. No respiratory distress. Breath sounds: Normal air entry. No transmitted upper airway sounds. No wheezing. Chest: Chest wall: Tenderness present. Abdominal: General: Abdomen is flat. Bowel sounds are normal. There is no distension. Palpations: Abdomen is soft. There is no mass. Tenderness: There is no abdominal tenderness. There is no guarding. Hernia: No hernia (umbilical, reducible ) is present. Musculoskeletal: General: Normal range of motion. Left shoulder: Normal. No swelling or bony tenderness. Normal range of motion. Normal pulse. Left wrist: Normal. No tenderness. Normal range of motion. Normal pulse. Cervical back: Normal range of motion. Back: Skin: General: Skin is warm. Neurological: General: No focal deficit present. Mental Status: He is alert and oriented to person, place, and time. Mental status is at baseline. Cranial Nerves: Cranial nerves are intact. No cranial nerve deficit. Sensory: No sensory deficit (numbness left thumb, chronic this has not worsened ). Motor: Motor function is intact. No weakness. Coordination: Coordination is intact. Coordination normal. Gait: Gait is intact. Gait normal. Psychiatric: Attention and Perception: Attention and perception normal. Mood and Affect: Mood normal. Speech: Speech normal. Behavior: Behavior normal. Behavior is cooperative. Cognition and Memory: Cognition normal. Judgment: Judgment normal. PHQ9: CHRISTIANO-7 Tobacco Counseling: Counseling given: Not Answered Comment: quit 2019 Assessment/Plan: Problem List Items Addressed This Visit Musculoskeletal and Integument Closed traumatic nondisplaced fracture of rib - Primary Fall occurred on 02/27/2021 CT scan showed nondisplaced fracture of sixth and seventh rib Patient states improvement in pain Will prescribe Percocets for 5 days advised patient to take ibuprofen as for breakthrough pain Advised patient to use ice packs as well Alarming/Red flag signs and symptoms discussed with the patient, patient instructed to seek medical attention at ED [facility] if any such symptoms develop. Pt expressed understanding. Relevant Medications oxyCODONE-acetaminophen (PERCOCET) 5-325 mg per tablet Return in about 4 weeks (around 03/30/2021) for Follow up Chronic Conditions. For any new medications prescribed today, patient was educated about indications for the medication, how to take the medication and potential side effects of the medications. Renée Shipley MD [place] [id number] [facility] [address] [place] [id number] Dept: [phone] documented in this encounter [facility] 02-15-2021 Miscellaneous Notes RECEIVED FAX FROM PHARMACY. REQUESTING REFILL ON QUEUED MEDICATION(S). LAST OV:11/10/20 NEXT OV: none scheduled documented in this encounter [facility] 02-13-2021 Note HNO ID: [id number] Author: Zari Alas PA-C Service: ? Author Type: Physician Forensic Audit Expert Type: Progress Notes Filed: 02/13/2021 12:45 PM Note Text: Subjective HPI HPI Aguila English is a 45 year old male who presents today for CC of L inner ear pain. Started with URI symptoms on Sunday; C/o States that he can hear fine out of ear. Has some crackling noted in R ear as well. Has a hx of ear/sinus issues, for which he previously had to have surgery in 2019. Had been seen at [facility] clinic on and given rx for conjunctivitis (Polytrim), and thinks the infection may be spreading into my nose and ear. Eye is still injected at this time. Pt does note he's a contact wearer. BP 124/82 Pulse 84 Temp 36.3 ?C (97.4 ?F) Resp 18 Wt (!) 137.9 kg (304 lb) SpO2 96% BMI 41.23 kg/m? ALLERGIES Allergen Reactions - Bee Stings [Other] - Environmental Aller* Cats, dogs, dust mites, trees, grasses, weeds, ragweed - Penicillin G rash, edema - Shellfish Crab, lobster, shrimp ACTIVE PROBLEM LIST Hypertension, Essential Anxiety With Depression Mild Intermittent Asthma, Uncomplicated Family History Problem Relation Age of Onset - Asthma Father - Diabetes Father - Hypertension Father - Kidney Disease Father dialysis - Diabetes Mother - Emphysema Mother smoker Social History Tobacco Use - Smoking status: Former Smoker Packs/day: 0.50 Types: Cigarettes - Smokeless tobacco: Never Used - Tobacco comment: 1 PACK a 1-2 WEEK, stopped 05/2018 Vaping Use - Vaping Use: Some days Substance Use Topics - Alcohol use: Yes Comment: OCCASIONAL - Drug use: No Review of Systems Constitutional: Positive for chills. Negative for fever and malaise/fatigue. HENT: Positive for congestion and ear pain. Negative for sinus pain and sore throat. Eyes: Positive for pain and redness. Negative for blurred vision, double vision, photophobia and discharge. Respiratory: Negative for cough, sputum production, shortness of breath and wheezing. Cardiovascular: Negative for chest pain. Neurological: Negative for headaches. Objective BP 124/82 Pulse 84 Temp 36.3 ?C (97.4 ?F) Resp 18 Wt (!) 137.9 kg (304 lb) SpO2 96% BMI 41.23 kg/m? Physical Exam Vitals and nursing note reviewed. HENT: Head: Normocephalic and atraumatic. Right Ear: Tympanic membrane, ear canal and external ear normal. No middle ear effusion. Tympanic membrane is not injected, perforated, erythematous, retracted or bulging. Left Ear: Ear canal and external ear normal. No middle ear effusion. Tympanic membrane is erythematous. Tympanic membrane is not injected, perforated, retracted or bulging. Nose: Mucosal edema, congestion and rhinorrhea (Mucoid drainage noted) present. Right Sinus: No maxillary sinus tenderness or frontal sinus tenderness. Left Sinus: No maxillary sinus tenderness or frontal sinus tenderness. Mouth/Throat: Pharynx: Uvula midline. No oropharyngeal exudate or posterior oropharyngeal erythema. Tonsils: No tonsillar abscesses. Eyes: Conjunctiva/sclera: Left eye: Left conjunctiva is injected. Cardiovascular: Rate and Rhythm: Normal rate and regular rhythm. Heart sounds: Normal heart sounds. Pulmonary: Effort: Pulmonary effort is normal. Breath sounds: Normal breath sounds. No decreased breath sounds, wheezing, rhonchi or rales. Musculoskeletal: Cervical back: Normal range of motion. Lymphadenopathy: Head: Right side of head: No submental, submandibular, tonsillar, preauricular, posterior auricular or occipital adenopathy. Left side of head: No submental, submandibular, tonsillar, preauricular, posterior auricular or occipital adenopathy. Cervical: No cervical adenopathy. Right cervical: No superficial or posterior cervical adenopathy. Left cervical: No superficial or posterior cervical adenopathy. Skin: General: Skin is warm and dry. Neurological: Mental Status: He is alert and oriented to person, place, and time. Psychiatric: Mood and Affect: Affect normal. ASSESSMENT/PLAN: 1. Acute contagious conjunctivitis of left eye - ICD9: 372.03, ICD10: H10.32 (primary diagnosis) Appears as though he's been inadequately txed with suboptimal coverage; Will switch to FQ gtt to appropriately cover - see medication orders - course and contagiousness issues discussed, including hand washing. - Instructed to call if high fever, development of periorbital redness or swelling, eye pain, visual changes, concerns or if symptoms persist. - OFLOXACIN 0.3 % EYE DROPS 2. Acute otitis media, left - ICD9: 382.9, ICD10: H66.92 - Mildly injected, but no bulging of TM or purulence noted at this time. Advised to monitor for the next 24-48 hours. Can alternate between IBU/Tylenol Q3-4 hours PRN for pain. Safety antibiotic rx printed for pt in the case symptoms persist or progress in the next 3-5 days. Discussed medication indications, (more content not included)... [facility] 02-13-2021 Note HNO ID: [id number] Author: Brisa Torres APRN.SENIOR CONTROLS TECHNICIAN Service: ? Author Type: Nurse Practitioner Type: Progress Notes Filed: 02/13/2021 10:28 AM Note Text: Telemedicine Visit - Distance Health Virtual Visit Note Patient seen on [employer] platform. Location of patient: [place] History of Present Illness Aguila English is a 45 year old year old male who presents for the past 6 days with symptoms that are:gradually worsening. 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 PAST MEDICAL HISTORY Diagnosis Date - Adjustment reaction with anxiety and depression - Allergic rhinitis allergic to dogs - Bursitis of elbow - Hypertension - Mild intermittent asthma PAST SURGICAL HISTORY Procedure Laterality Date - PAST SURGICAL HISTORY OF Repair bicep tendon rupture - PAST SURGICAL HISTORY OF septoplasty FAMILY HISTORY Problem Relation Age of Onset - Asthma Father - Diabetes Father - Hypertension Father - Kidney Disease Father dialysis - Diabetes Mother - Emphysema Mother smoker Social History Tobacco Use - Smoking status: Former Smoker Packs/day: 0.50 Types: Cigarettes - Smokeless tobacco: Never Used - Tobacco comment: 1 PACK a 1-2 WEEK, stopped 05/2018 Vaping Use - Vaping Use: Some days Substance Use Topics - Alcohol use: Yes Comment: OCCASIONAL - Drug use: No Current Outpatient Medications Medication Sig - losartan (COZAAR) 50 mg tablet Take 1 tablet by mouth once daily. - sertraline (ZOLOFT) 50 mg tablet Take 1 tablet by mouth once daily. - montelukast (SINGULAIR) 10 mg tablet TAKE 1 TABLET DAILY AT BEDTIME - albuterol HFA (PROAIR HFA) 90 mcg/actuation inhaler Inhale 2 Puffs as instructed every 4 hours as needed. No current facility-administered medications for this visit. ALLERGIES Allergen Reactions - Bee Stings [Other] - Environmental Aller* Cats, dogs, dust mites, trees, grasses, weeds, ragweed - Penicillin G rash, edema - Shellfish Crab, lobster, shrimp Video Exam (Examination performed via Video enabled technology) General appearance Alert, oriented, pleasant, in NAD: Yes Ill appearing: No Lethargic appearing: No HEENT Eyes: Sclera clear :Yes Conjunctiva without erythema :Yes PULMONARY Respiratory distress: No Coughing noted: No Audible wheezing noted: No ========= ==== ASSESSMENT/PLAN: 1. Left ear pain - ICD9: 388.70, ICD10: H92.02 (primary diagnosis) 2. Treatment not available - ICD9: V64.3, ICD10: Z53.8 REFER TO ECC FOR EAR EVAL UNABLE TO VISUALIZE TM VIA THIS PLATFORM - Reviewed OTC medications and supplements to help w/ sxs - Encouraged good hydration, handwashing and use of humidified air - Encouraged REST - Red flags discussed for need for in person care - All questions answered Brisa Torres APRN.SENIOR CONTROLS TECHNICIAN If you let us know who your primary care provider is, we will send them a notification of today?s visit through our electronic medical records system. Since not all providers have access to our notifications, we strongly encourage you to share the following record of today?s visit with your primary care provider at your next visit. This will help in providing you the best care. [facility] 02-01-2021 Miscellaneous Notes FAX REQUEST RECEIVED FROM PHARMACY. REQUESTING REFILL ON ZOLOFT. LAST OV 11/10/20 (TELEHEALTH). NO FUTURE VISITS ON FILE. documented in this encounter [facility] 11-10-2020 Miscellaneous Notes Associated Problem(s): Anxiety with depression Sx well controlled on sertaline 50mg daily Associated Problem(s): Hypertension, essential Controlled on losartan 100mg Avoid high fat foods (high in trans fat). Eat lots of fruits and vegetables and try adhering to the DASH or Mediterranean diet for lifestyle modification. There are many resources available online. Exercise 4-5 times a week at least 30 min at a time and get your heart rate elevated. Losing 10-20 percent of your body weight may significantly help with your cholesterol levels. Associated Problem(s): Obesity (BMI 30-39.9) . Recommended therapeutic lifestyle changes including healthy diet starting with a 500 calorie deficit/day and 30-60 min of exercise at least 3 times/week to help with weight loss. Patient can advance exercise regiment as tolerated. Types of exercise include strength training (cross fit, OSCAR, weight lifting) or aerobic exercise(/brisk walk/jogging/running) or a combination of both. documented in this encounter [facility] 11-10-2020 Instructions Renée Shipley MD - 11/10/2020 6:52 PM EDT Problem List Items Addressed This Visit Cardiovascular and Mediastinum Hypertension, essential Controlled on losartan 100mg Avoid high fat foods (high in trans fat). Eat lots of fruits and vegetables and try adhering to the DASH or Mediterranean diet for lifestyle modification. There are many resources available online. Exercise 4-5 times a week at least 30 min at a time and get your heart rate elevated. Losing 10-20 percent of your body weight may significantly help with your cholesterol levels. Other Anxiety with depression - Primary Sx well controlled on sertaline 50mg daily Obesity (BMI 30-39.9) . Recommended therapeutic lifestyle changes including healthy diet starting with a 500 calorie deficit/day and 30-60 min of exercise at least 3 times/week to help with weight loss. Patient can advance exercise regiment as tolerated. Types of exercise include strength training (cross fit, OSCAR, weight lifting) or aerobic exercise(/brisk walk/jogging/running) or a combination of both. If any referrals were placed at the time of your visit please allow 2 weeks for processing. If you haven't heard from anyone within 2 weeks please contact my office so we can look into the status of your referral. If you were given any labs today please ensure they are completed according to the directions given. Most normal results will be available through [employer] however if abnormal, you will be notified. Please allow 48-72 hours for review, and let you know what steps, if any, are needed next. If you haven't heard from us after that please call to inquire. If labs were ordered to be done PRIOR to your next visit we will discuss the results at the time of your office visit. If any procedures or imaging studies were ordered that must be prior authorized please give us 2 weeks to get them approved. Once approved someone should call you to schedule them or give you a date and time that they were scheduled for. If you haven't heard anything within 2 weeks of the office visit please call the office so we can look into their status. Customer Service/Billing Questions: [phone] [employer] Assistance: [phone] or [phone] Financial Assistance: [phone] or [phone] documented in this encounter [facility] 11-10-2020 History of Presen t illness Narrative Video Visit [facility] [address] [facility] [address] [facility] [id number] Video Visit [facility] 11/10/2020 Renée Shipley MD Provider Location: [address] [place] [address]. Patient Location Battalion Fire Chief: None Patient Location: Patient's Home Patient: Samson English Date of : 1975 (44 y.o. male) PCP: Renée Shipley MD Telehealth Visit Consent Statement: I discussed risks, benefits and alternatives of a telehealth visit telemedicine consultation with the patient (and any accompanying persons) including the risks that the patient s personal health details and medical records will be discussed over real-time, synchronous, interactive video/audio/telecommunication technology, the visit will not be recorded without the express consent of both the provider and the patient, and that there are inherent diagnostic limitations compared to [id number] evaluations. We elected to proceed with the telemedicine consultation. Subjective Patient ID: Samson English is a 44 y.o. male. Chief Complaint Patient presents with Follow-up HPI Patient is a 44-year-old male with a past medical history of hypertension, mild intermittent asthma, anxiety and depression presenting for a follow up visit for his blood pressure. Patient recently had ventral hernia repair August 2020 Patient recovered well without any complications. No acute complaints at this time. Hypertension patient does take 100 mg of Cozaar every day. Patient has not been measuring his blood pressure at home. He is tolerating this medication very well. He denies having any headaches, chest pain, palpitations, shortness of breath, vision disturbances, lightheadedness, blood in his urine or stool. Anxiety and depression controlled on zoloft, , no acute issues. Pt states work has been better- this was a stress factor for him previously but he has been promoted and he feels better about his career. Obesity. Discussed healthy eating, healthy meal prep and exercise regiment to help lose weight. Pt currently not following reigment or following diet. Discussed risks of obesity. All pertinent positives and negatives are documented in ROS Patient's medications, allergies, past medical history, surgical history history, family history, social history were reviewed. Spent more than 10 minutes with patient, coordinating patient care, including reviewing charts and counseling patient. Patient Active Problem List Diagnosis Anxiety with depression Hypertension, essential Mild intermittent asthma, uncomplicated Obesity (BMI 30-39.9) Wellness examination Ventral hernia without obstruction or gangrene Preop examination Status post repair of ventral hernia Past Surgical History: Procedure Laterality Date BICEPS TENDON REPAIR Right 2003 x2 bone spur Left 2019 NASAL SEPTUM SURGERY 2019 REPAIR HERNIA TRANSABDOMINAL ROBOTIC XI N/A 08/19/2020 Procedure: REPAIR HERNIA TRANSABDOMINAL ROBOTIC XI; Surgeon: Sandra Wellington MD; Location: Main OR; Service: [employer] Family History Problem Relation Age of Onset Hypertension Mother Diabetes Father Kidney disease Father Hypertension Father Heart attack Paternal Grandmother Heart disease Sister Diabetes Sister COPD Sister smoker Social History Tobacco Use Smoking status: Former Smoker Packs/day: 0.50 Years: 20.00 Pack years: 10.00 Quit date: 2019 Years since quittin.7 Smokeless tobacco: Never Used Tobacco comment: quit 2019 Vaping Use Vaping Use: Some days Substances: Nicotine, Flavoring Devices: Pre-filled or refillable cartridge Substance Use Topics Alcohol use: Yes Comment: occasionally Drug use: Not Currently Allergies Allergen Reactions Bee Venom Protein (Honey Bee) Shellfish Derived Anaphylaxis Penicillins Rash Outpatient Medications as of 11/10/2020 Medication Sig albuterol 90 mcg/actuation inhaler Inhale 2 puffs every 4 (four) hours as needed . cetirizine (ZYRTEC) 10 MG tablet Take 10 mg by mouth daily . EPINEPHrine (EPIPEN) 0.3 mg/0.3 mL AtIn Inject 0.3 mL (0.3 mg total) into the mid-thigh as needed for severe allergic reaction. . famotidine (PEPCID) 20 MG tablet Take 20 mg by mouth daily . losartan (COZAAR) 100 MG tablet Take 1 (one) tablet (100 mg total) by mouth daily . sertraline (ZOLOFT) 50 MG tablet Take 1 (one) tablet (50 mg total) by mouth daily . Review of Systems Objective There were no vitals filed for this visit. Estimated body mass index is 39.47 kg/m as calculated from the following: Height as of 08/19/20: 5' 11 . Weight as of 08/31/20: 128.4 kg (283 lb). Physical Exam PHQ9: CHRISTIANO-7 Tobacco Counseling: Counseling given: Not Answered Comment: quit 2019 Assessment/Plan: Problem List Items Addressed This Visit Cardiovascular and Mediastinum Hypertension, essential Controlled on losartan 100mg Avoid high fat foods (high in trans fat). Eat lots of fruits and vegetables and try adhering to the DASH or Mediterranean diet for lifestyle modification. There are many resources available online. Exercise 4-5 times a week at least 30 min at a time and get your heart rate elevated. Losing 10-20 percent of your body weight may significantly help with your cholesterol levels. Other Anxiety with depression - Primary Sx well controlled on sertaline 50mg daily Obesity (BMI 30-39.9) . Recommended therapeutic lifestyle changes including healthy diet starting with a 500 calorie deficit/day and 30-60 min of exercise at least 3 times/week to help with weight loss. Patient can advance exercise regiment as tolerated. Types of exercise include strength training (cross fit, OSCAR, weight lifting) or aerobic exercise(/brisk walk/jogging/running) or a combination of both. No follow-ups on file. For any new medications prescribed today, patient was educated about indications for the medication, how to take the medication and potential side effects of the medications. Renée Shipley MD documented in this encounter [facility] 08-31-2020 History of Presen t illness Narrative [facility] PATIENT: Samson English DATE / TIME: 08/31/20 1:25 PM POS: Office AGE: 44 y.o. : 1975 RACE: [1] SEX: male PCP: Renée Shipley MD REFERRAL: No ref. provider found TOS: SUBJECTIVE: Status post da [place] assisted umbilical hernia repair. Overall doing well. Denies any nausea vomiting or abdominal distention OBJECTIVE: BP (!) 136/92 Pulse 92 Wt 128.4 kg (283 lb) BMI 39.47 kg/m PE Laparoscopic scars well appearing without erythema fluctuance or drainage Umbilical site well-appearing skin viable from the umbilical stalk no purulence or drainage Lab Results Component Value Date WBC 3.61 (L) 08/12/2020 RBC 4.95 08/12/2020 HGB 16.3 08/12/2020 HCT 46.9 08/12/2020 PLT 212 08/12/2020 No results found for: AMYLASE No results found for: LIPASE IMAGING: PATHOLOGY: ASSESSMENT: PLAN: Patient Active Problem List Diagnosis Anxiety with depression Hypertension, essential Mild intermittent asthma, uncomplicated Obesity (BMI 30-39.9) Wellness examination Ventral hernia without obstruction or gangrene Preop examination Status post da [place] assisted umbilical hernia repair with mesh No evidence of surgical site infection Instructed the patient for a total of 3 weeks no lifting more than 20 pounds Patient can return to my office if any problems arise or concern for recurrence. documented in this encounter [facility] 08-19-2020 Hospital Discharg Kelly Shields RN - 08/19/2020 5:50 PM EDT GENERAL POST-OPERATIVE PATIENT INSTRUCTIONS ANESTHESIA PRECAUTIONS: A responsible adult must stay with you for at least 24 hours after surgery. You may feel light headed,, dizzy, or nauseated during this time. Do not operate a vehicle (car, bike, motorcycle, mineral industry teacher) machinery or power tools. Do not make any important decisions or drink any alcoholic beverages for 24 hours. Children should remain quiet today. No riding of bicycles, motorcycles, skateboards, playing on swings etc. Drink plenty of fluids today. Eat light, small, frequent meals today. Resume regular diet tomorrow. FOLLOW-UP: Please make an appointment with your physician for follow-up. Call your physician immediately if you have any fevers greater than 101, drainage from your wound that is not clear or looks infected, persistent bleeding, increasing abdominal pain, problems urinating, or persistent nausea/vomiting. DIET: You may eat any foods that you can tolerate. It is a good idea to eat a high fiber diet and take in plenty of fluids to prevent constipation. If you do become constipated you may want to take a mild laxative or take ducolax tablets on a daily basis until your bowel habits are regular. Constipation can be very uncomfortable, along with straining, after recent surgery. ACTIVITY: You are encouraged to cough and deep breathe or use your incentive spirometer if you were given one, every 15-30 minutes when awake. This will help prevent respiratory complications and low grade fevers post-operatively if you had a general anesthetic. You are encouraged to walk and engage in light activity for the next two weeks. MEDICATIONS: Try to take narcotic medications and anti-inflammatory medications, such as ibuprofen, naprosyn, etc., with food. This will minimize stomach upset from the medication. Should you develop nausea and vomiting from the pain medication, or develop a rash, please discontinue the medication and contact your physician. You should not drive, make important decisions, or operate machinery when taking narcotic pain medication. Do not take tylenol or tylenol products with narcotic medications. QUESTIONS: Please feel free to call your physician or the hospital dumb waiter operator if you have any questions, and they will be glad to assist you. Teri Ding RN - 08/19/2020 GENERAL POST-OPERATIVE PATIENT INSTRUCTIONS ANESTHESIA PRECAUTIONS: A responsible adult must stay with you for at least 24 hours after surgery. You may feel light headed,, dizzy, or nauseated during this time. Do not operate a vehicle (car, bike, motorcycle, mineral industry teacher) machinery or power tools. Do not make any important decisions or drink any alcoholic beverages for 24 hours. Children should remain quiet today. No riding of bicycles, motorcycles, skateboards, playing on swings etc. Drink plenty of fluids today. Eat light, small, frequent meals today. Resume regular diet tomorrow. FOLLOW-UP: Please make an appointment with your physician for follow-up. Call your physician immediately if you have any fevers greater than 101, drainage from your wound that is not clear or looks infected, persistent bleeding, increasing abdominal pain, problems urinating, or persistent nausea/vomiting. DIET: You may eat any foods that you can tolerate. It is a good idea to eat a high fiber diet and take in plenty of fluids to prevent constipation. If you do become constipated you may want to take a mild laxative or take ducolax tablets on a daily basis until your bowel habits are regular. Constipation can be very uncomfortable, along with straining, after recent surgery. ACTIVITY: You are encouraged to cough and deep breathe or use your incentive spirometer if you were given one, every 15-30 minutes when awake. This will help prevent respiratory complications and low grade fevers post-operatively if you had a general anesthetic. You are encouraged to walk and engage in light activity for the next two weeks. MEDICATIONS: Try to take narcotic medications and anti-inflammatory medications, such as ibuprofen, naprosyn, etc., with food. This will minimize stomach upset from the medication. Should you develop nausea and vomiting from the pain medication, or develop a rash, please discontinue the medication and contact your physician. You should not drive, make important decisions, or operate machinery when taking narcotic pain medication. Do not take tylenol or tylenol products with narcotic medications. QUESTIONS: Please feel free to call your physician or the hospital dumb waiter operator if you have any questions, and they will be glad to assist you. documented in this encounter [facility] 08-19-2020 Miscellaneous Notes Brief Post Operative Note Patient Name: Samson English : 1975 (44 y.o.) Date of Service: 08/19/2020 CSN: [id number] Procedure(s): REPAIR HERNIA TRANSABDOMINAL ROBOTIC XI Pre-Operative Diagnoses: * Ventral hernia without obstruction or gangrene [K43.9] Post-Operative Diagnoses: * Ventral hernia without obstruction or gangrene [K43.9] Surgeon(s) and Role: * Sandra Wellington MD - Primary Anesthesiologist: John Esquivel DO FENCE GATE ASSEMBLER: Vijaya Willis CRNA Scrub Person: Fina Hernandez Home Decorator Orientee: Yudy Rodgers RN Home Decorator Preceptor: Elodia Trotter RN Nurse Float: Hilda Queen RN; Aaron Pham RN Operative findings: incarcerated umbilical hernia Intra and immediate post-operative complications: none Type of anesthesia used: General Estimated blood loss: 5 mL Estimated urine output: 100 mL Specimen(s): * No specimens in log * Implant(s): Implant Name Type Inv. Item Serial No. Administrative Services Director Lot No. LRB No. Used Action MESH 4.5IN [employer] [address] - SN/A Mesh MESH 4.5IN [employer]TR[employer] N/A [employer] [id number] N/A 1 Implanted Drain(s): Urethral Catheter Latex 16 Fr. (Active) Wound(s): Wound 08/19/20 Surgical Wound Abdomen (Active) Sandra Wellington MD 08/19/2020 4:01 PM documented in this encounter [facility] 08-19-2020 History and physical note INTERVAL HISTORY AND PHYSICAL Patient Name: Samson English Admit Date: [id number] MR #: [id number] : 1975 The H&P has been reviewed and the patient has been examined. I concur with the findings of the H&P. There are no significant changes. It is appropriate to proceed with the planned procedure. Sandra Wellington MD 08/19/2020 1:27 PM [facility] PATIENT: Samson English DATE / TIME: 08/10/20 8:29 AM POS: Office AGE: 44 y.o. : 1975 RACE: [1] SEX: male PCP: Renée Shipley MD REFERRAL: Renée Shipley MD HISTORY OF PRESENT ILLNESS CC / Reason for Consult: Ventral hernia HPI: 44-year-old man history of anxiety, asthma and obesity referred for ventral, umbilical hernia. Patient reports that he has had the hernia for the last 7 years. It has slowly grown in size becoming more tender to palpation. 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 Denies any significant nausea or vomiting and has never had any abdominal surgery. PAST MEDICAL / SURGICAL HISTORY Past Medical History: Diagnosis Date Anxiety Asthma Obesity Past Surgical History: Procedure Laterality Date BICEPS TENDON REPAIR Right 2004 bone spur Left 2019 FAMILY HISTORY Family History Problem Relation Age of Onset Hypertension Mother Diabetes Father Kidney disease Father Hypertension Father SOCIAL HISTORY Data Unavailable Social History Tobacco Use Smoking Status Former Smoker Smokeless Tobacco Never Used Social History Substance and Sexual Activity Alcohol Use Yes Social History Substance and Sexual Activity Drug Use Not Currently MEDICATIONS: Patient has a current medication list which includes the following prescription(s): albuterol, cholecalciferol (vitamin d3), ergocalciferol, famotidine, fexofenadine, losartan, and sertraline. ALLERGIES: Allergies Allergen Reactions Bee Venom Protein (Honey Bee) Shellfish Derived Anaphylaxis Penicillins Rash REVIEW OF SYSTEMS Pertinent positives and negatives are listed in HPI, PMSH, SH, ALL above and in Details below. The following systems were reviewed: [] Const (fevers, chills, wt. loss, fatigue) [] CV (HTN, CP, WEINER, edema, DVT) [] Resp (SOB, pleurisy, asthma, apnea) [] GI (N, V, D, C, M, abd pain, appetite) [] Musc (back pain, joint stiffness, gout) [] Neuro (seizures, syncope, paralysis) [] Psych (depression, anxiety) [] Endo (hot/cold intol, polyuria[DM]) [] Hem/Lymph (Anemia, LA, bleeding) [] Allerg/Immun (seasonal, immuniz) [] Eyes (diplopia, cataracts) [] ENT/mouth (dysphagia, epistaxis) [] (dysuria, hematuria) [] Skin/Breast (moles, rash, lumps, nipple changes) Details: PHYSICAL EXAM BP 132/87 Pulse 84 Resp 16 Ht 5' 11 Wt 127.9 kg (282 lb) SpO2 94% BMI 39.33 kg/m Details: Physical Exam Constitutional: Appearance: Normal appearance. HENT: Head: Normocephalic. Eyes: Pupils: Pupils are equal, round, and reactive to light. Cardiovascular: Rate and Rhythm: Normal rate. Pulmonary: Effort: Pulmonary effort is normal. Abdominal: General: Bowel sounds are normal. There is no distension. Palpations: Abdomen is soft. Hernia: A hernia is present. Comments: Umbilical hernia present defect measures approximately 3-1/2 cm. Reducible in supine Thin skin of the umbilicus overlying it Musculoskeletal: General: Normal range of motion. Cervical back: Normal range of motion. Skin: General: Skin is warm. Neurological: General: No focal deficit present. Mental Status: He is alert. Psychiatric: Mood and Affect: Mood normal. Thought Content: Thought content normal. LABS / X-RAYS Details: Laboratory Lab Results Component Value Date WBC 4.03 (L) 02/17/2020 RBC 5.07 02/17/2020 HGB 16.6 02/17/2020 HCT 48.6 02/17/2020 PLT 232 02/17/2020 No results found for: AMYLASE No results found for: LIPASE ASSESSMENT AND PLAN: Patient Active Problem List Diagnosis Anxiety with depression Hypertension, essential Mild intermittent asthma, uncomplicated Obesity (BMI 30-39.9) Wellness examination Ventral hernia without obstruction or gangrene Discussed with him surgical repair options. Because of his habitus I would recommend laparoscopic repair with da [place] assisted laparoscopic ventral hernia repair with mesh. Risk and possible complications were discussed including but not limited to bleeding, infection, injury to surrounding structures and possible recurrence. Patient understanding and agreed to proceed. We will schedule him and consent him today. Perioperative lab work and EKG ordered 1. Ventral hernia without obstruction or gangrene Ambulatory referral to General Surgery Case Request Operating Room: REPAIR HERNIA TRANSABDOMINAL ROBOTIC XI Vital signs ECG 12 Lead Height and weight Vital signs Surgical site prep Skin; Chlorhexidine Gluconate Insert peripheral IV lactated Ringers infusion Intermittent pneumatic compression device Bilat LE CBC Basic metabolic panel clindamycin (CLEOCIN) 900 mg in sodium chloride 0.9 % (NS) 50 mL IVPB COVID-19, Molecular Total time 30 minutes, green 50% was spent [id number] with the patient obtaining history, performing exam describing the procedure obtaining consent and coordinating care Anticip Anesthesia: Follow-up: ICD: Ventral hernia without obstruction or gangrene [K43.9] [] Thank you for the privilege of allowing me to participate in the care of Samson English. documented in this encounter [facility] 08-10-2020 History of Presen t illness Narrative [facility] PATIENT: Samson English DATE / TIME: 08/10/20 8:29 AM POS: Office AGE: 44 y.o. : 1975 RACE: [1] SEX: male PCP: Renée Shipley MD REFERRAL: Renée Shipley MD HISTORY OF PRESENT ILLNESS CC / Reason for Consult: Ventral hernia HPI: 44-year-old man history of anxiety, asthma and obesity referred for ventral, umbilical hernia. Patient reports that he has had the hernia for the last 7 years. It has slowly grown in size becoming more tender to palpation. 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 Denies any significant nausea or vomiting and has never had any abdominal surgery. PAST MEDICAL / SURGICAL HISTORY Past Medical History: Diagnosis Date Anxiety Asthma Obesity Past Surgical History: Procedure Laterality Date BICEPS TENDON REPAIR Right 2004 bone spur Left 2018 FAMILY HISTORY Family History Problem Relation Age of Onset Hypertension Mother Diabetes Father Kidney disease Father Hypertension Father SOCIAL HISTORY Data Unavailable Social History Tobacco Use Smoking Status Former Smoker Smokeless Tobacco Never Used Social History Substance and Sexual Activity Alcohol Use Yes Social History Substance and Sexual Activity Drug Use Not Currently MEDICATIONS: Patient has a current medication list which includes the following prescription(s): albuterol, cholecalciferol (vitamin d3), ergocalciferol, famotidine, fexofenadine, losartan, and sertraline. ALLERGIES: Allergies Allergen Reactions Bee Venom Protein (Honey Bee) Shellfish Derived Anaphylaxis Penicillins Rash REVIEW OF SYSTEMS Pertinent positives and negatives are listed in HPI, PMSH, SH, ALL above and in Details below. The following systems were reviewed: [] Const (fevers, chills, wt. loss, fatigue) [] CV (HTN, CP, WEINER, edema, DVT) [] Resp (SOB, pleurisy, asthma, apnea) [] GI (N, V, D, C, M, abd pain, appetite) [] Musc (back pain, joint stiffness, gout) [] Neuro (seizures, syncope, paralysis) [] Psych (depression, anxiety) [] Endo (hot/cold intol, polyuria[DM]) [] Hem/Lymph (Anemia, LA, bleeding) [] Allerg/Immun (seasonal, immuniz) [] Eyes (diplopia, cataracts) [] ENT/mouth (dysphagia, epistaxis) [] (dysuria, hematuria) [] Skin/Breast (moles, rash, lumps, nipple changes) Details: PHYSICAL EXAM BP 132/87 Pulse 84 Resp 16 Ht 5' 11 Wt 127.9 kg (282 lb) SpO2 94% BMI 39.33 kg/m Details: Physical Exam Constitutional: Appearance: Normal appearance. HENT: Head: Normocephalic. Eyes: Pupils: Pupils are equal, round, and reactive to light. Cardiovascular: Rate and Rhythm: Normal rate. Pulmonary: Effort: Pulmonary effort is normal. Abdominal: General: Bowel sounds are normal. There is no distension. Palpations: Abdomen is soft. Hernia: A hernia is present. Comments: Umbilical hernia present defect measures approximately 3-1/2 cm. Reducible in supine Thin skin of the umbilicus overlying it Musculoskeletal: General: Normal range of motion. Cervical back: Normal range of motion. Skin: General: Skin is warm. Neurological: General: No focal deficit present. Mental Status: He is alert. Psychiatric: Mood and Affect: Mood normal. Thought Content: Thought content normal. LABS / X-RAYS Details: Laboratory Lab Results Component Value Date WBC 4.03 (L) 02/17/2020 RBC 5.07 02/17/2020 HGB 16.6 02/17/2020 HCT 48.6 02/17/2020 PLT 232 02/17/2020 No results found for: AMYLASE No results found for: LIPASE ASSESSMENT AND PLAN: Patient Active Problem List Diagnosis Anxiety with depression Hypertension, essential Mild intermittent asthma, uncomplicated Obesity (BMI 30-39.9) Wellness examination Ventral hernia without obstruction or gangrene Discussed with him surgical repair options. Because of his habitus I would recommend laparoscopic repair with da [place] assisted laparoscopic ventral hernia repair with mesh. Risk and possible complications were discussed including but not limited to bleeding, infection, injury to surrounding structures and possible recurrence. Patient understanding and agreed to proceed. We will schedule him and consent him today. Perioperative lab work and EKG ordered 1. Ventral hernia without obstruction or gangrene Ambulatory referral to General Surgery Case Request Operating Room: REPAIR HERNIA TRANSABDOMINAL ROBOTIC XI Vital signs ECG 12 Lead Height and weight Vital signs Surgical site prep Skin; Chlorhexidine Gluconate Insert peripheral IV lactated Ringers infusion Intermittent pneumatic compression device Bilat LE CBC Basic metabolic panel clindamycin (CLEOCIN) 900 mg in sodium chloride 0.9 % (NS) 50 mL IVPB COVID-19, Molecular Total time 30 minutes, green 50% was spent [id number] with the patient obtaining history, performing exam describing the procedure obtaining consent and coordinating care Anticip Anesthesia: Follow-up: ICD: Ventral hernia without obstruction or gangrene [K43.9] [] Thank you for the privilege of allowing me to participate in the care of Samson English. documented in this encounter [facility] 08-10-2020 History of Presen t illness Narrative [facility] PATIENT: Samson English DATE / TIME: 08/10/20 8:29 AM POS: Office AGE: 44 y.o. : 1975 RACE: [1] SEX: male PCP: Renée Shipley MD REFERRAL: Renée Shipley MD HISTORY OF PRESENT ILLNESS CC / Reason for Consult: Ventral hernia HPI: 44-year-old man history of anxiety, asthma and obesity referred for ventral, umbilical hernia. Patient reports that he has had the hernia for the last 7 years. It has slowly grown in size becoming more tender to palpation. 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 Denies any significant nausea or vomiting and has never had any abdominal surgery. PAST MEDICAL / SURGICAL HISTORY Past Medical History: Diagnosis Date Anxiety Asthma Obesity Past Surgical History: Procedure Laterality Date BICEPS TENDON REPAIR Right 2004 bone spur Left 2019 FAMILY HISTORY Family History Problem Relation Age of Onset Hypertension Mother Diabetes Father Kidney disease Father Hypertension Father SOCIAL HISTORY Data Unavailable Social History Tobacco Use Smoking Status Former Smoker Smokeless Tobacco Never Used Social History Substance and Sexual Activity Alcohol Use Yes Social History Substance and Sexual Activity Drug Use Not Currently MEDICATIONS: Patient has a current medication list which includes the following prescription(s): albuterol, cholecalciferol (vitamin d3), ergocalciferol, famotidine, fexofenadine, losartan, and sertraline. ALLERGIES: Allergies Allergen Reactions Bee Venom Protein (Honey Bee) Shellfish Derived Anaphylaxis Penicillins Rash REVIEW OF SYSTEMS Pertinent positives and negatives are listed in HPI, PMSH, SH, ALL above and in Details below. The following systems were reviewed: [] Const (fevers, chills, wt. loss, fatigue) [] CV (HTN, CP, WEINER, edema, DVT) [] Resp (SOB, pleurisy, asthma, apnea) [] GI (N, V, D, C, M, abd pain, appetite) [] Musc (back pain, joint stiffness, gout) [] Neuro (seizures, syncope, paralysis) [] Psych (depression, anxiety) [] Endo (hot/cold intol, polyuria[DM]) [] Hem/Lymph (Anemia, LA, bleeding) [] Allerg/Immun (seasonal, immuniz) [] Eyes (diplopia, cataracts) [] ENT/mouth (dysphagia, epistaxis) [] (dysuria, hematuria) [] Skin/Breast (moles, rash, lumps, nipple changes) Details: PHYSICAL EXAM BP 132/87 Pulse 84 Resp 16 Ht 5' 11 Wt 127.9 kg (282 lb) SpO2 94% BMI 39.33 kg/m Details: Physical Exam Constitutional: Appearance: Normal appearance. HENT: Head: Normocephalic. Eyes: Pupils: Pupils are equal, round, and reactive to light. Cardiovascular: Rate and Rhythm: Normal rate. Pulmonary: Effort: Pulmonary effort is normal. Abdominal: General: Bowel sounds are normal. There is no distension. Palpations: Abdomen is soft. Hernia: A hernia is present. Comments: Umbilical hernia present defect measures approximately 3-1/2 cm. Reducible in supine Thin skin of the umbilicus overlying it Musculoskeletal: General: Normal range of motion. Cervical back: Normal range of motion. Skin: General: Skin is warm. Neurological: General: No focal deficit present. Mental Status: He is alert. Psychiatric: Mood and Affect: Mood normal. Thought Content: Thought content normal. LABS / X-RAYS Details: Laboratory Lab Results Component Value Date WBC 4.03 (L) 02/17/2020 RBC 5.07 02/17/2020 HGB 16.6 02/17/2020 HCT 48.6 02/17/2020 PLT 232 02/17/2020 No results found for: AMYLASE No results found for: LIPASE ASSESSMENT AND PLAN: Patient Active Problem List Diagnosis Anxiety with depression Hypertension, essential Mild intermittent asthma, uncomplicated Obesity (BMI 30-39.9) Wellness examination Ventral hernia without obstruction or gangrene Discussed with him surgical repair options. Because of his habitus I would recommend laparoscopic repair with da [place] assisted laparoscopic ventral hernia repair with mesh. Risk and possible complications were discussed including but not limited to bleeding, infection, injury to surrounding structures and possible recurrence. Patient understanding and agreed to proceed. We will schedule him and consent him today. Perioperative lab work and EKG ordered 1. Ventral hernia without obstruction or gangrene Ambulatory referral to General Surgery Case Request Operating Room: REPAIR HERNIA TRANSABDOMINAL ROBOTIC XI Vital signs ECG 12 Lead Height and weight Vital signs Surgical site prep Skin; Chlorhexidine Gluconate Insert peripheral IV lactated Ringers infusion Intermittent pneumatic compression device Bilat LE CBC Basic metabolic panel clindamycin (CLEOCIN) 900 mg in sodium chloride 0.9 % (NS) 50 mL IVPB COVID-19, Molecular Total time 30 minutes, green 50% was spent [id number] with the patient obtaining history, performing exam describing the procedure obtaining consent and coordinating care Anticip Anesthesia: Follow-up: ICD: Ventral hernia without obstruction or gangrene [K43.9] [] Thank you for the privilege of allowing me to participate in the care of Samson English. documented in this encounter [facility] Ventral hernia without obstruction or gangrene- Primary Unspecified ventral hernia without mention of obstruction or gangrene Ventral hernia without obstruction or gangrene- Primary Unspecified ventral hernia without mention of obstruction or gangrene Ventral hernia without obstruction or gangrene Unspecified ventral hernia without mention of obstruction or gangrene [facility] Diagnosis Ventral hernia without obstruction or gangrene- Primary Unspecified ventral hernia without mention of obstruction or gangrene Postoperative pain Other acute postoperative pain Incarcerated umbilical hernia Umbilical hernia with obstruction [facility] Diagnosis Status post repair of ventral hernia- Primary Other postprocedural status [facility] Diagnosis Anxiety with depression- Primary Hypertension, essential Unspecified essential hypertension Obesity (BMI 30-39.9) [facility] Diagnosis Closed traumatic nondisplaced fracture of rib- Primary [facility] Diagnosis Hypertension, essential- Primary Unspecified essential hypertension Diagnosis Wellness examination Diagnosis Hypertension, essential- Primary Unspecified essential hypertension Obesity (BMI 30-39.9) Diagnosis Wellness examination- Primary Obesity (BMI 30-39.9) Hypertension, essential Unspecified essential hypertension Advance Directives Documents on File Type Date Recorded Patient Radio/Tv Technician Expl anation Advance Directives and Living Will Documents on File Type Date Recorded Patient Radio/Tv Technician Expl anation Advance Directives and Livin g Will 08/12/2020 8:21 AM Documents on File Type Date Recorded Patient Radio/Tv Technician Expl anation Advance Directives and Livin g Will 08/19/2020 10:25 AM Documents on File Type Date Recorded Patient Radio/Tv Technician Expl anation Advance Directives and Livin g Will 08/19/2020 10:25 AM Instructions * Patient Instructions* Renée Shipley MD - 05/04/2020 9:43 AM EDT Problem List Items Addressed This Visit Cardiovascular and Mediastinum Hypertension, essential - Primary Controlled on losartan 100mg Avoid high fat foods (high in trans fat). Eat lots of fruits and vegetables and try adhering to the DASH or Mediterranean diet for lifestyle modification. There are many resources available online. Exercise 4-5 times a week at least 30 min at a time and get your heart rate elevated. Losing 10-20 percent of your body weight may significantly help with your cholesterol levels. Relevant Orders Basic Metabolic Panel Other Obesity (BMI 30-39.9) Body mass index is 38.15 kg/m .. Recommended therapeutic lifestyle changes including healthy diet starting with a 500 calorie deficit/day and 30-60 min of exercise at least 3 times/week to help with weight loss. Patient can advance exercise regiment as tolerated. Types of exercise include strength training (cross fit, OSCAR, weight lifting) or aerobic exercise(/brisk walk/jogging/running) or a combination of both. You've made some great progress! If any referrals were placed at the time of your visit please allow 2 weeks for processing. If you haven't heard from anyone within 2 weeks please contact my office so we can look into the status of your referral. If you were given any labs today please ensure they are completed according to the directions given. Most normal results will be available through [employer] however if abnormal, you will be notified. Please allow 48-72 hours for review, and let you know what steps, if any, are needed next. If you haven't heard from us after that please call to inquire. If labs were ordered to be done PRIOR to your next visit we will discuss the results at the time ofyour office visit. If any procedures or imaging studies were ordered that must be prior authorized please give us 2 weeks to get them approved. Once approved someone should call you to schedule them or give you a date and time that they were scheduled for. If you haven't heard anything within 2 weeks of the office visit please call the office so we can look into their status. Customer Service/Billing Questions: [phone] [facility] [employer] Assistance: [phone] or [phone] Financial Assistance: [phone] or [phone] documented in this encounter* Patient Instructions* Renée Shipley MD - 02/17/2020 9:01 AM EST Problem List Items Addressed This Visit Cardiovascular and Mediastinum Hypertension, essential Please take blood pressure in the same arm, in a seated position, first thing in the morning for 2 weeks and record readings. If her blood pressure is at any time over 180/110 or below 90/60, please give clinic a call. Our goal blood pressure is below 130/80 for most adults Other Obesity (BMI 30-39.9) Obesity: Body mass index is 39.2 kg/m .. Recommended therapeutic lifestyle changes including healthy diet starting with a 500 calorie deficit/day and 30-60 min of exercise at least 3 times/week to help with weight loss. Patient can advance exercise regiment as tolerated. Types of exercise include strength training (cross fit, OSCAR, weight lifting) or aerobic exercise(/brisk walk/jogging/running) or a combination of both. Patient was advised of risks and benefits of controlled substance and verbalized understanding. OARRS performed today . Controlled medication contract on file. No suspicious behavior, concerning or suspicious history given at this visit. Wellness examination - Primary We will get basic labs today Discussed healthy diet and exercise and stress management Relevant Medications phentermine (Adipex-P) 37.5 mg tablet Other Relevant Orders CBC and Differential Comprehensive Metabolic Panel Vitamin D, Total, 25-OH TSH with Reflex Free T4 Lipid Panel POC Glycosylated Hemoglobin (Hb A1C) Drugs of Abuse Screen, Urine If any referrals were placed at the time of your visit please allow 2 weeks for processing. If you haven't heard from anyone within 2 weeks please contact my office so we can look into the status of your referral. If you were given any labs today please ensure they are completed according to the directions given. Most normal results will be available through [facility] however if abnormal, you will be notified. Please allow 48-72 hours for review, and let you know what steps, if any, are needed next. If you haven't heard from us after that please call to inquire. If labs were ordered to be done PRIOR to your next visit we will discuss the results at the time ofyour office visit. If any procedures or imaging studies were ordered that must be prior authorized please give us 2 weeks to get them approved. Once approved someone should call you to schedule them or give you a date and time that they were scheduled for. If you haven't heard anything within 2 weeks of the office visit please call the office so we can look into their status. Customer Service/Billing Questions: [phone] MyChart Assistance: [phone] or [phone] Financial Assistance: [phone] or [phone] Starting a Weight Loss Plan: Care Instructions Overview If you're thinking about losing weight, it can be hard to know where to start. Your doctor can helpyou set up a weight loss plan that best meets your needs. You may want to take a class on nutritionor exercise, or you could join a weight loss support group. If you have questions about how to makechanges to your eating or exercise habits, ask your doctor about seeing a registered dietitian or an printing specialist. It can be a big challenge to lose weight. But you don't have to make huge changes at once. Make small changes, and stick with them. When those changes become habit, add a few more changes. If you don't think you're ready to make changes right now, try to pick a date in the future. Make an appointment to see your doctor to discuss whether the time is right for you to start a plan. Follow-up care is a azar part of your treatment and safety. Be sure to make and go to all appointments, and call your doctor if you are having problems. It's also a good idea to know your test resultsand keep a list of the medicines you take. How can you care for yourself at home? Set realistic goals. Many people expect to lose much more weight than is likely. A weight loss of 5% to 10% of your body weight may be enough to improve your health. Get family and friends involved to provide support. Talk to them about why you are trying to lose weight, and ask them to help. They can help by participating in exercise and having meals with you, even if they may be eating something different. Find what works best for you. If you do not have time or do not like to cook, a program that offersmeal replacement bars or shakes may be better for you. Or if you like to prepare meals, finding a plan that includes daily menus and recipes may be best. Ask your doctor about other health professionals who can help you achieve your weight loss goals. ? A dietitian can help you make healthy changes in your diet. ? An printing specialist or household personal assistant can help you develop a safe and effective exercise program. ? A counselor or psychiatrist can help you cope with issues such as depression, anxiety, or family problems that can make it hard to focus on weight loss. Consider joining a support group for people who are trying to lose weight. Your doctor can suggest groups in your area. Where can you learn more? Log into your personal health record on https://[employer] [employer] and enter U357 in the Education box to learn more about Starting a Weight Loss Plan: Care Instructions. Current as of: November 12, 2019 Content Version: 12.7 [employer]. Care instructions adapted under license by your healthcare professional. If you have questions about a medical condition or this instruction, always ask your healthcare professional. [employer] disclaims any warranty or liability for your use of this information. DASH Diet: Care Instructions Your Care Instructions The DASH diet is an eating plan that can help lower your blood pressure. DASH stands for Dietary Approaches to Stop Hypertension. Hypertension is high blood pressure. The DASH diet focuses on eating foods that are high in calcium, potassium, and magnesium. These nutrients can lower blood pressure. The foods that are highest in these nutrients are fruits, vegetables, low-fat dairy products, nuts, seeds, and legumes. But taking calcium, potassium, and magnesium supplements instead of eating foods that are high in those nutrients does not have the same effect. The DASH diet also includes whole grains, fish, and poultry. The DASH diet is one of several lifestyle changes your doctor may recommend to lower your high blood pressure. Your doctor may also want you to decrease the amount of sodium in your diet. Lowering sodium while following the DASH diet can lower blood pressure even further than just the DASH diet alone. Follow-up care is a azar part of your treatment and safety. Be sure to make and go to all appointments, and call your doctor if you are having problems. It's also a good idea to know your test resultsand keep a list of the medicines you take. How can you care for yourself at home? Following the DASH diet Eat 4 to 5 servings of fruit each day. A serving is 1 medium-sized piece of fruit, cup chopped or canned fruit, 1/4 cup dried fruit, or 4 ounces ( cup) of fruit juice. Choose fruit more often than fruit juice. Eat 4 to 5 servings of vegetables each day. A serving is 1 cup of lettuce or raw leafy vegetables, cup of chopped or cooked vegetables, or 4 ounces ( cup) of vegetable juice. Choose vegetables more often than vegetable juice. Get 2 to 3 servings of low-fat and fat-free dairy each day. A serving is 8 ounces of milk, 1 cup ofyogurt, or 1 ounces of cheese. Eat 6 to 8 servings of grains each day. A serving is 1 slice of bread, 1 ounce of dry cereal, or cup of cooked rice, pasta, or cooked cereal. Try to choose whole-grain products as much as possible. Limit lean meat, poultry, and fish to 2 servings each day. A serving is 3 ounces, about the size ofa deck of cards. Eat 4 to 5 servings of nuts, seeds, and legumes (cooked dried beans, lentils, and split peas) each week. A serving is 1/3 cup of nuts, 2 tablespoons of seeds, or cup of cooked beans or peas. Limit fats and oils to 2 to 3 servings each day. A serving is 1 teaspoon of vegetable oil or 2 tablespoons of salad dressing. Limit sweets and added sugars to 5 servings or less a week. A serving is 1 tablespoon jelly or jam,cup sorbet, or 1 cup of lemonade. Eat less than 2,300 milligrams (mg) of sodium a day. If you limit your sodium to 1,500 mg a day, you can lower your blood pressure even more. Be aware that all of these are the suggested number of servings for people who eat 1,800 to 2,000 calories a day. Your recommended number of servings may be different if you need more or fewer calories. Tips for success Start small. Do not try to make dramatic changes to your diet all at once. You might feel that you are missing out on your favorite foods and then be more likely to not follow the plan. Make small changes, and stick with them. Once those changes become habit, add a few more changes. Try some of the following: ? Make it a goal to eat a fruit or vegetable at every meal and at snacks. This will make it easy toget the recommended amount of fruits and vegetables each day. ? Try yogurt topped with fruit and nuts for a snack or healthy dessert. ? Add lettuce, tomato, cucumber, and onion to sandwiches. ? Combine a ready-made pizza crust with low-fat mozzarella cheese and lots of vegetable toppings. Try using tomatoes, squash, spinach, broccoli, carrots, cauliflower, and onions. ? Have a variety of cut-up vegetables with a low-fat dip as an appetizer instead of chips and dip. ? Sprinkle sunflower seeds or chopped almonds over salads. Or try adding chopped walnuts or almondsto cooked vegetables. ? Try some vegetarian meals using beans and peas. Add garbanzo or kidney beans to salads. Make burritos and tacos with mashed young beans or black beans. Where can you learn more? Log into your personal health record on https://[employer] and enter H967 in the Education box to learn more about DASH Diet: Care Instructions. Current as of: October 20, 2019 Content Version: 12.7 [employer]. Care instructions adapted under license by your healthcare professional. If you have questions about a medical condition or this instruction, always ask your healthcare professional. [employer] disclaims any warranty or liability for your use of this information. High Blood Pressure: Care Instructions Overview It's normal for blood pressure to go up and down throughout the day. But if it stays up, you have high blood pressure. Another name for high blood pressure is hypertension. Despite what a lot of people think, high blood pressure usually doesn't cause headaches or make youfeel dizzy or lightheaded. It usually has no symptoms. But it does increase your risk of stroke, heart attack, and other problems. You and your doctor will talk about your risks of these problems based on your blood pressure. Your doctor will give you a goal for your blood pressure. Your goal will be based on your health and your age. Lifestyle changes, such as eating healthy and being active, are always important to help lower blood pressure. You might also take medicine to reach your blood pressure goal. Follow-up care is a azar part of your treatment and safety. Be sure to make and go to all appointments, and call your doctor if you are having problems. It's also a good idea to know your test resultsand keep a list of the medicines you take. How can you care for yourself at home? Medical treatment If you stop taking your medicine, your blood pressure will go back up. You may take one or more types of medicine to lower your blood pressure. Be safe with medicines. Take your medicine exactly as prescribed. Call your doctor if you think you are having a problem with your medicine. Talk to your doctor before you start taking aspirin every day. Aspirin can help certain people lower their risk of a heart attack or stroke. But taking aspirin isn't right for everyone, because it can cause serious bleeding. See your doctor regularly. You may need to see the doctor more often at first or until your blood pressure comes down. If you are taking blood pressure medicine, talk to your doctor before you take decongestants or anti-inflammatory medicine, such as ibuprofen. Some of these medicines can raise blood pressure. Learn how to check your blood pressure at home. Lifestyle changes Stay at a healthy weight. This is especially important if you put on weight around the waist. Losing even 10 pounds can help you lower your blood pressure. If your doctor recommends it, get more exercise. Walking is a good choice. Bit by bit, increase theamount you walk every day. Try for at least 30 minutes on most days of the week. You also may want to swim, bike, or do other activities. Avoid or limit alcohol. Talk to your doctor about whether you can drink any alcohol. Try to limit how much sodium you eat to less than 2,300 milligrams (mg) a day. Your doctor may ask you to try to eat less than 1,500 mg a day. Eat plenty of fruits (such as bananas and oranges), vegetables, legumes, whole grains, and low-fat dairy products. Lower the amount of saturated fat in your diet. Saturated fat is found in animal products such as milk, cheese, and meat. Limiting these foods may help you lose weight and also lower your risk for heart disease. Do not smoke. Smoking increases your risk for heart attack and stroke. If you need help quitting, talk to your doctor about stop-smoking programs and medicines. These can increase your chances of quitting for good. When should you call for help? Call 911 anytime you think you may need emergency care. This may mean having symptoms that suggest that your blood pressure is causing a serious heart or blood vessel problem. Your blood pressure maybe over 180/120. For example, call 911 if: You have symptoms of a heart attack. These may include: ? Chest pain or pressure, or a strange feeling in the chest. ? Sweating. ? Shortness of breath. ? Nausea or vomiting. ? Pain, pressure, or a strange feeling in the back, neck, jaw, or upper belly or in one or both shoulders or arms. ? Lightheadedness or sudden weakness. ? A fast or irregular heartbeat. You have symptoms of a stroke. These may include: ? Sudden numbness, tingling, weakness, or loss of movement in your face, arm, or leg, especially ononly one side of your body. ? Sudden vision changes. ? Sudden trouble speaking. ? Sudden confusion or trouble understanding simple statements. ? Sudden problems with walking or balance. ? A sudden, severe headache that is different from past headaches. You have severe back or belly pain. Do not wait until your blood pressure comes down on its own. Get help right away. Call your doctor now or seek immediate care if: Your blood pressure is much higher than normal (such as 180/120 or higher), but you don't have symptoms. You think high blood pressure is causing symptoms, such as: ? Severe headache. ? Blurry vision. Watch closely for changes in your health, and be sure to contact your doctor if: Your blood pressure measures higher than your doctor recommends at least 2 times. That means the top number is higher or the bottom number is higher, or both. You think you may be having side effects from your blood pressure medicine. Where can you learn more? Log into your personal health record on https://[employer] and enter X567 in the Education box to learn more about High Blood Pressure: Care Instructions. Current as of: October 20, 2019 Content Version: 12.7 [employer]. Care instructions adapted under license by your healthcare professional. If you have questions about a medical condition or this instruction, always ask your healthcare professional. [employer] disclaims any warranty or liability for your use of this information. documented in this encounter History of Present Illness * Renée Shipley MD - 05/04/2020 9:45 AM EDT Subjective Patient ID: Samson English is a 44 y.o. male. Chief Complaint Patient presents with Follow-up BP HPI Patient is a 44-year-old male with a past medical history of hypertension, mild intermittent asthma, anxiety and depression presenting for a follow up visit for his blood pressure. Hypertension patient does take 100 mg of Cozaar every day. 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 He is tolerating this medication very well. We have not had a BMP since beginning this medication in January. He denies having any headaches, chest pain, palpitations, shortness of breath, vision disturbances, lightheadedness, blood in his urine or stool. Hyperlipidemia- related to obesity, had an extensive discussion with patient about weight loss and exercise and healthy eating habits to decrease his cholesterol levels Obesity Patient has recently made some significant changes in his diet over the last week and has lost 4 pounds. He has not been exercising as much but he states he has been eating chicken breast andvegetables. He is aware that exercising is a significant component lifestyle changes. Patient is very motivated. He denies having any previous coronary artery disease, heart attacks, strokes. Mild intermittent asthma patient states that this is well controlled and he occasionally uses his albuterol. He denies any shortness of breath or any recent asthma attacks. He states this is usually seasonal. Anxiety and depression controlled on zoloft, , no acute issues. All pertinent positives and negatives are documented in ROS Patient's medications, allergies, past medical history, surgical history history, family history, social history were reviewed. Spent more than 20 minutes with patient, coordinating patient care, including reviewing charts and counseling patient. Patient Active Problem List Diagnosis Anxiety with depression Hypertension, essential Mild intermittent asthma, uncomplicated Obesity (BMI 30-39.9) Wellness examination Past Surgical History: Procedure Laterality Date BICEPS TENDON REPAIR Right 2003 bone spur Left 2018 Family History Problem Relation Age of Onset Hypertension Mother Diabetes Father Kidney disease Father Hypertension Father Social History Tobacco Use Smoking status: Former Smoker Smokeless tobacco: Never Used Substance Use Topics Alcohol use: Yes Frequency: 2-4 times a month Drinks per session: 5 or 6 Binge frequency: Monthly Drug use: Not Currently Allergies Allergen Reactions Bee Venom Protein (Honey Bee) Shellfish Derived Anaphylaxis Penicillins Rash Review of Systems Constitutional: Negative for appetite change, chills, fatigue and fever. Eyes: Negative for visual disturbance. Respiratory: Negative for cough, chest tightness, shortness of breath and wheezing. Cardiovascular: Negative for chest pain and palpitations. Gastrointestinal: Negative for abdominal pain, blood in stool, constipation, diarrhea, nausea and vomiting. Umbilical hernia, chronic Genitourinary: Negative for frequency, hematuria and urgency. Neurological: Positive for numbness (left thumb, chronic). Negative for dizziness, tremors, syncope, weakness and headaches. Psychiatric/Behavioral: Negative. Negative for behavioral problems, decreased concentration and sleep disturbance. Increased stress at work Objective Vitals: 05/04/20 0915 05/04/20 0920 BP: 137/87 132/87 BP Location: Left arm Left arm Patient Position: Sitting Sitting BP Cuff Size: X-large Adult X-large Adult Pulse: 83 Resp: 18 Temp: 98.5 F (36.9 C) TempSrc: Oral SpO2: 98% Weight: 127.6 kg (281 lb 4.8 oz) Height: 6' Estimated body mass index is 38.15 kg/m as calculated from the following: Height as of this encounter: 6'. Weight as of this encounter: 127.6 kg (281 lb 4.8 oz). Physical Exam Vitals signs and nursing note reviewed. Constitutional: Appearance: Normal appearance. He is obese. HENT: Head: Normocephalic and atraumatic. Nose: Nose normal. Mouth/Throat: Mouth: Mucous membranes are moist. Eyes: Extraocular Movements: Extraocular movements intact. Conjunctiva/sclera: Conjunctivae normal. Neck: Musculoskeletal: Normal range of motion. Cardiovascular: Rate and Rhythm: Normal rate and regular rhythm. Pulses: Normal pulses. Heart sounds: Normal heart sounds, S1 normal and S2 normal. No murmur. Pulmonary: Effort: Pulmonary effort is normal. No respiratory distress. Breath sounds: Normal breath sounds and air entry. No transmitted upper airway sounds. Abdominal: General: Abdomen is flat. Bowel sounds are normal. There is no distension. Palpations: Abdomen is soft. There is no mass. Tenderness: There is no abdominal tenderness. There is no guarding. Hernia: A hernia (umbilical, reducible ) is present. Musculoskeletal: Normal range of motion. Skin: General: Skin is warm. Neurological: General: No focal deficit present. Mental Status: He is alert and oriented to person, place, and time. Mental status is at baseline. Cranial Nerves: Cranial nerves are intact. No cranial nerve deficit. Sensory: Sensory deficit (numbness left thumb ) present. Motor: Motor function is intact. No weakness. Coordination: Coordination is intact. Gait: Gait is intact. Psychiatric: Attention and Perception: Attention and perception normal. Mood and Affect: Mood normal. Speech: Speech normal. Behavior: Behavior normal. Behavior is cooperative. Cognition and Memory: Cognition normal. Judgment: Judgment normal. Assessment/Plan: Problem List Items Addressed This Visit Cardiovascular and Mediastinum Hypertension, essential - Primary Controlled on losartan 100mg Avoid high fat foods (high in trans fat). Eat lots of fruits and vegetables and try adhering to the DASH or Mediterranean diet for lifestyle modification. There are many resources available online. Exercise 4-5 times a week at least 30 min at a time and get your heart rate elevated. Losing 10-20 percent of your body weight may significantly help with your cholesterol levels. Relevant Orders Basic Metabolic Panel Other Obesity (BMI 30-39.9) Body mass index is 38.15 kg/m .. Recommended therapeutic lifestyle changes including healthy diet starting with a 500 calorie deficit/day and 30-60 min of exercise at least 3 times/week to help with weight loss. Patient can advance exercise regiment as tolerated. Types of exercise include strength training (cross fit, OSCAR, weight lifting) or aerobic exercise(/brisk walk/jogging/running) or a combination of both. You've made some great progress! Return in about 6 months (around 11/04/2020) for Follow Up. For any new medications prescribed today, patient was educated about indications for the medication, how to take the medication and potential side effects of the medications. Renée Shipley MD documented in this encounter* Renée Shipley MD - 02/17/2020 8:34 AM EST HPI Patient is a 44-year-old male with a past medical history of hypertension, mild intermittent asthma, anxiety and depression presenting as a new patient to the clinic. Obesity patient states that he would like to discuss weight loss medication. He states that over the last 8 months his decrease in his exercise and changes in his diet have caused weight gain and he would like to create some healthy changes. Patient is very motivated. He denies having any previous coronary artery disease, heart attacks, strokes. Anxiety and depression patient states that his work has caused an increase in stress which could lead to his high blood pressure today. 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 He states that the Zoloft does help with his symptoms. He denies having any decreased larissa ntration, agitation, apathy, sleep disturbances. His PHQ-9 was reviewed and was 2 today. We did discuss different techniques for stress management including exercise, perfecto chi, meditation, counseling and he verbalized understanding. At this time patient did not want to pursue counseling. Hypertension patient does take 50 mg of Cozaar every day. 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 He states that his blood pressure was elevated today in clinic because of discussing work with his clients. He denies having any headaches, chest pain, palpitations, shortness of breath, vision disturbances, lightheadedness, blood in his urine or stool. 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 Mild intermittent asthma patient states that this is well controlled and he occasionally uses his albuterol. He denies any shortness of breath or any recent asthma attacks. He states this is usually seasonal. Patient did want to discuss some numbness and tingling in his left thumb, which has been chronic since he traumatic brain injury in 2018. He has received rehab sessions for it as well as platelet rich plasma therapy in his neck for the pain. He states that it did help somewhat but he continues to have numbness and tingling in his left thumb and sometimes he loses complete feeling in it. He also states having electric shocks and cramps in his biceps occasionally. He denies having any decreased motor function in his arms or with the use of his thumb. He did have x-rays back in 2018 but they did not show any narrowing of the vertebrae/stenosis. He has not had an MRI. I did discuss with the patient that we might want to get an EMG or MRI to further evaluate his nerve pain or we consider referral to neurology. At this time he stated that he would like to discuss this with his . Further review of systems were documented in the ROS section. Spent more than 50 minutes with patient, coordinating patient care, including reviewing charts and counseling patient. We discussed weight loss, diet management, starting medication called Adipex forweight loss, hypertension management and management for his numbness and tingling in his thumb. Patient Active Problem List Diagnosis Anxiety with depression Hypertension, essential Mild intermittent asthma, uncomplicated Obesity (BMI 30-39.9) Wellness examination Past Surgical History: Procedure Laterality Date BICEPS TENDON REPAIR Right 2004 bone spur Left 2019 Family History Problem Relation Age of Onset Hypertension Mother Diabetes Father Kidney disease Father Hypertension Father Social History Tobacco Use Smoking status: Former Smoker Smokeless tobacco: Never Used Substance Use Topics Alcohol use: Yes Frequency: 2-4 times a month Drinks per session: 5 or 6 Binge frequency: Monthly Drug use: Not Currently Review of Systems: Review of Systems Constitutional: Negative for appetite change, chills, fatigue and fever. HENT: Negative for ear pain and sore throat. Eyes: Negative for visual disturbance. Respiratory: Negative for cough, chest tightness, shortness of breath and wheezing. Cardiovascular: Negative for chest pain and palpitations. Gastrointestinal: Negative for abdominal distention, abdominal pain, blood in stool, constipation, diarrhea, nausea and vomiting. Endocrine: Negative for cold intolerance, heat intolerance, polydipsia and polyuria. Genitourinary: Negative for dysuria, frequency, hematuria and urgency. Musculoskeletal: Negative for back pain, joint swelling and neck pain. Skin: Negative for rash. Neurological: Positive for numbness (left thumb, chronic). Negative for dizziness, tremors, syncope, weakness and headaches. Psychiatric/Behavioral: Negative. Negative for confusion, decreased concentration, dysphoric mood, hallucinations and sleep disturbance. The patient is not nervous/anxious. Increased stress at work Physical Exam: BP (!) 141/100 (BP Location: Left arm, Patient Position: Sitting, BP Cuff Size: X-large Adult) Pulse 75 Temp 98.9 F (37.2 C) (Temporal) Resp 18 Ht 6' Wt 131.1 kg (289 lb) SpO2 97% BMI 39.20 kg/m Wt Readings from Last 3 Encounters: 02/17/20 131.1 kg (289 lb) BP Readings from Last 3 Encounters: 02/17/20 (!) 141/100 Physical Exam Vitals signs and nursing note reviewed. Constitutional: Appearance: Normal appearance. He is obese. HENT: Head: Normocephalic and atraumatic. Right Ear: External ear normal. Left Ear: External ear normal. Eyes: Extraocular Movements: Extraocular movements intact. Conjunctiva/sclera: Conjunctivae normal. Pupils: Pupils are equal, round, and reactive to light. Neck: Musculoskeletal: Normal range of motion. Thyroid: No thyroid mass, thyromegaly or thyroid tenderness. Trachea: Trachea normal. Cardiovascular: Rate and Rhythm: Normal rate and regular rhythm. Pulses: Normal pulses. Heart sounds: Normal heart sounds, S1 normal and S2 normal. No murmur. Pulmonary: Effort: Pulmonary effort is normal. No respiratory distress. Breath sounds: Normal breath sounds and air entry. No transmitted upper airway sounds. Abdominal: General: Abdomen is flat. Bowel sounds are normal. There is no distension. Palpations: Abdomen is soft. There is no mass. Tenderness: There is no abdominal tenderness. There is no guarding. Musculoskeletal: Normal range of motion. Right lower leg: No edema. Left lower leg: No edema. Skin: General: Skin is warm. Findings: No rash. Neurological: General: No focal deficit present. Mental Status: He is alert and oriented to person, place, and time. Mental status is at baseline. Cranial Nerves: Cranial nerves are intact. No cranial nerve deficit. Sensory: Sensory deficit (numbness left thumb ) present. Motor: Motor function is intact. No weakness. Coordination: Coordination is intact. Gait: Gait is intact. Deep Tendon Reflexes: Reflexes normal. Psychiatric: Attention and Perception: Attention and perception normal. Mood and Affect: Mood normal. Speech: Speech normal. Behavior: Behavior normal. Behavior is cooperative. Thought Content: Thought content normal. Thought content does not include homicidal or suicidal ideation. Thought content does not include homicidal or suicidal plan. Cognition and Memory: Cognition normal. Judgment: Judgment normal. OARRS OARRS/NARxCHECK Report Received and Assessed: No data found Date controlled substance agreement signed: No data found Date of last drug screen: No data found Functional Assessment: No data found Health Maintenance Due Topic Date Due HIV Screening 1992 Hepatitis C Screening 01/01/1996 PHQ9: Over the last 2 weeks, how often have you been bothered by any of the following problems? Little interest or pleasure in doing things: Not at all Feeling down, depressed, or hopeless: Not at all PHQ-2 Total Score: 0 Trouble falling or staying asleep, or sleeping too much: Not at all Feeling tired or having little energy: Not at all Poor appetite or overeating: More than half the days Feeling bad about yourself - or that you are a failure or have let yourself or your family down: Not at all Trouble concentrating on things, such as reading the newspaper or watching television: Not at all Moving or speaking so slowly that other people could have noticed. Or the opposite - being so fidgety or restless that you have been moving around a lot more than usual: Not at all Thoughts that you would be better off , or of hurting yourself in some way: Not at all PHQ-9 Total Score: 2 If you checked off any problems, how difficult have these problems made it for you to do your work,take care of things at home, or get along with other people?: Not difficult at all CHRISTIANO-7 Over the last 2 weeks, how often have you been bothered by the following problems? Feeling nervous, anxious or on edge: Not at all Not being able to stop or control worrying: Not at all Worrying too much about different things: Not at all Trouble relaxing: Not at all Being so restless that it is hard to sit still: Several days Becoming easily annoyed or irritable: Several days Feeling afraid as if something awful might happen: Not at all CHRISTIANO-7 Score: 2 Tobacco Counseling: Counseling given: Not Answered Current Outpatient Medications Medication Sig Dispense Refill albuterol 90 mcg/actuation inhaler Inhale 2 puffs every 4 (four) hours as needed . famotidine (PEPCID) 20 MG tablet Take 20 mg by mouth daily . fexofenadine (ALONSO) 180 MG tablet Take 180 mg by mouth daily . losartan (COZAAR) 50 MG tablet Take 50 mg by mouth daily . sertraline (ZOLOFT) 50 MG tablet Take 50 mg by mouth daily . phentermine (Adipex-P) 37.5 mg tablet Take 1 (one) tablet (37.5 mg total) by mouth every morning (Days supply per fill: 30) . 30 tablet 0 No current facility-administered medications for this visit. Assessment/Plan: Problem List Items Addressed This Visit Cardiovascular and Mediastinum Hypertension, essential Please take blood pressure in the same arm, in a seated position, first thing in the morning for 2 weeks and record readings. If her blood pressure is at any time over 180/110 or below 90/60, please give clinic a call. Our goal blood pressure is below 130/80 for most adults Other Obesity (BMI 30-39.9) Obesity: Body mass index is 39.2 kg/m .. Recommended therapeutic lifestyle changes including healthy diet starting with a 500 calorie deficit/day and 30-60 min of exercise at least 3 times/week to help with weight loss. Patient can advance exercise regiment as tolerated. Types of exercise include strength training (cross fit, OSCAR, weight lifting) or aerobic exercise(/brisk walk/jogging/running) or a combination of both. Patient was advised of risks and benefits of controlled substance and verbalized understanding. OARRS performed today . Controlled medication contract on file. No suspicious behavior, concerning or suspicious history given at this visit. Wellness examination - Primary We will get basic labs today Discussed healthy diet and exercise and stress management Relevant Medications phentermine (Adipex-P) 37.5 mg tablet Other Relevant Orders CBC and Differential Comprehensive Metabolic Panel Vitamin D, Total, 25-OH TSH with Reflex Free T4 Lipid Panel POC Glycosylated Hemoglobin (Hb A1C) (Completed) Drugs of Abuse Screen, Urine Return in about 2 weeks (around 03/02/2020) for bp, Follow Up- nurse visit. Please note: Portions of this chart may have been created with [employer] voice recognition software. Occasional wrong-word or sound-like substitutions may have occurred due to inherent limitations of the voice recognition software. Please read the chart carefully and recognize, using context, where the substitutions have occurred. For any new medications prescribed today, patient was educated about indications for the medication, how to take the medication and potential side effects of the medications. Renée Shipley MD Depression Screening 02/17/2020 Little interest or pleasure in doing things 0 Feeling down, depressed, or hopeless 0 PHQ-2 Total Score 0 Trouble falling or staying asleep, or sleeping too much 0 Feeling tired or having little energy 0 Poor appetite or overeating 2 Feeling bad about yourself - or that you are a failure or have let yourself or your family down 0 Trouble concentrating on things, such as reading the newspaper or watching television 0 Moving or speaking so slowly that other people could have noticed. Or the opposite - being so fidgety or restless that you have been moving around a lot more than usual 0 Thoughts that you would be better off , or of hurting yourself in some way 0 PHQ-9 Total Score 2 If you checked off any problems, how difficult have these problems made it for you to do your work,take care of things at home, or get along with other people? Not difficult at all documented in this encounter Summary Purpose Family History No Family History Records FoundNo Family History Records FoundNo Family History Records FoundNo Family History Records Found Additional Source Comments Reason for Visit (unrecogniz ed section and content) Reason Onset Date Comments Medication Refill 03/11/2020 Reason Comments Follow-up BP Reason Comments Establish Care weight loss, labs Reason Comments Consult hernia Status Reason Specialty Diagnoses / Procedures Referred By Contact Referred To Contact Closed General Surgery Diagnoses Abdominal hernia without obstruction and without gangrene, recurrence not specified, unspecified hernia type Renée Shipley MD [address] [place] [address] Memo Reyna MD [address] [place] [id number] Status Reason Specialty Diagnoses / Procedures Referre d By Contact Referred To Contact Diagnoses Ventral hernia without obstruction or gangrene Ventral hernia without obstruction or gangrene [K43.9] Procedures hernia repair Sandra Wellington MD [address] [place] [id number] Reason Comments Follow-up hernia repair Reason Comments Follow-up Reason Onset Date Comments Medication Refill 02/01/2021 Reason Comments broken ribs ER visit 3 days agoP ercocet and ibuprfen being taken for pain Reason Onset Date Comments Medication Refill 05/11/2021 Telephone Encounter - Renuka English LPN - 03/11/2020 9:32 AM ESTAssessment & Plan Note - Renée Shipley MD - 05/04/2020 9:44 AM EDT Miscellaneous Notes (unrecog nized section and content) Pt requesting refill on Adipex. Medication pended. Last OV 02/17/2020 Nest OV 05/04/20 documented in this encounter Associated Problem(s): Obesity (BMI 30-39.9) Body mass index is 38.15 kg/m .. Recommended therapeutic lifestyle changes including healthy diet starting with a 500 calorie deficit/day and 30-60 min of exercise at least 3 times/week to help with weight loss. Patient can advance exercise regiment as tolerated. Types of exercise include strength training (cross fit, OSCAR, weight lifting) or aerobic exercise(/brisk walk/jogging/running) or a combination of both. You've made some great progress! Associated Problem(s): Hypertension, essential Controlled on losartan 100mg Avoid high fat foods (high in trans fat). Eat lots of fruits and vegetables and try adhering to the DASH or Mediterranean diet for lifestyle modification. There are many resources available online. Exercise 4-5 times a week at least 30 min at a time and get your heart rate elevated. Losing 10-20 percent of your body weight may significantly help with your cholesterol levels. documented in this encounter Associated Problem(s): Wellness examination We will get basic labs today Discussed healthy diet and exercise and stress management Associated Problem(s): Obesity (BMI 30-39.9) Obesity: Body mass index is 39.2 kg/m .. Recommended therapeutic lifestyle changes including healthy diet starting with a 500 calorie deficit/day and 30-60 min of exercise at least 3 times/week to help with weight loss. Patient can advance exercise regiment as tolerated. Types of exercise include strength training (cross fit, OSCAR, weight lifting) or aerobic exercise(/brisk walk/jogging/running) or a combination of both. Patient was advised of risks and benefits of controlled substance and verbalized understanding. OARRS performed today . Controlled medication contract on file. No suspicious behavior, concerning or suspicious history given at this visit. Associated Problem(s): Hypertension, essential Please take blood pressure in the same arm, in a seated position, first thing in the morning for 2 weeks and record readings. If her blood pressure is at any time over 180/110 or below 90/60, please give clinic a call. Our goal blood pressure is below 130/80 for most adults documented in this encounter Scheduled Active and Recently Administ ered Medications (unrecognized section and content) Continuous Medication Order 08/17/2020 08/18/2020 08/19/2020 lactated Ringers infusion 75 mL/hr, Intravenous, Continuous, Starting on Linh 08/19/20 at 1145, Pre-Procedure 1109 (New Bag - Prov ider: No Mercado RN)1415 (Canceled Entry - Provider: Vijaya Willis CRNA - Comment: Switch to gravity)1416 (Canceled Entry - Provider: Vijaya Willis CRNA)1416 (Paused - Provider: Sherin Chan CRNA - Comment: Switch to gravity)1417 (New Bag - Provider: Sherin Chan CRNA)1548 (New Bag - Provider: Vijaya Willis CRNA)1604 (Anesthesia Volume Adjustment - Provider: Vijaya Willis CRNA)1659 (Stopped - Provider: Teri Mendoza RN) lactated Ringers infusion 100 mL/hr, Intravenous, Continuous, Starting on Linh 08/19/20 at 1700, PACU (only) 1700 (Due) PRN Medication Order 08/17/2020 08/18/2020 08/19/2020 bupivacaine (PF) (MARCAINE) 0.25 % (2.5 mg/mL) injection (CANCELED) As needed, Starting on Linh 08/19/20 at 1549, Intra-Procedure 1549 (Given - Provid er: Sandra Wellington MD) HYDROmorphone (DILAUDID) injection 0.5 mg 0.5 mg, Intravenous, Every 5 min PRN, Pain, Starting on Linh 08/19/20 at 1602, For 6 doses, PACU (only), [] Give if fentanyl not effective or not ordered. [] Do not give more than 3 mg total. 1620 (Given - Provid er: Teri Mendoza RN)1626 (Given - Provider: Teri Mendoza RN)1635 (Given - Provider: Teri Mendoza RN) labetaloL (NORMODYNE) injection 5 mg 5 mg, Intravenous, Every 5 min PRN, SBP greater than 180 or DBP greater than 120, Starting on Linh 08/19/20 at 1602, For 4 doses, PACU (only), [] Do not give more than 20 mg total. [] Hold for HR less than 50. meperidine (DEMEROL) injection 12.5 mg 12.5 mg, Intravenous, Every 5 min PRN, shivering, Starting on Linh 08/19/20 at 1602, For 2 doses, PACU (only), Do not give more than 25 mg total., RESTRICTED to use in rigors OR pain management in patients with a documented opioid allergy. Please select this medication s indication. Rigors naloxone (NARCAN) injection 0.1 mg(Linked Group 1) 0.1 mg, Intravenous, As needed, opioid reversal, Starting on Linh 08/19/20 at 1602, PACU (only), [] Mix nalOXone (NARCAN) 0.4 mg (1ml) with 9 mL of Normal Saline to total 10 mL. [] Administer 0.1 mg (2.5ml) IV Push every 2 minutes until respiratory rate is 10 or greater. naloxone (NARCAN) injection 0.4 mg(Linked Group 1) 0.4 mg, Intravenous, As needed, opioid reversal, patient is pulseless, breathless, and unresponsive, Starting on Linh 08/19/20 at 1602, PACU (only), Call a code first, then administer naloxone dose undiluted IV Push over 30 seconds. ondansetron (ZOFRAN) injection 4 mg 4 mg, Intravenous, Once as needed, nausea, vomiting, Starting on Linh 08/19/20 at 1602, For 1 dose, PACU (only), Administer first as needed for nausea/vomiting, or as directed by anesthesia prochlorperazine (COMPAZINE) injection 5 mg 5 mg, Intravenous, Once as needed, nausea, Starting on Linh 08/19/20 at 1602, For 1 dose, PACU (only), Administer if ondansetron (Zofran), promethazine (Phenergan), and Metocolopramide (Reglan) ineffective or not ordered, or as directed by anesthesia, as needed for nausea/vomiting Linked Groups Order Group 1: Notify Anesthesiologist (CANCELED) STAT, Until discontinued, Starting on Linh 08/19/20 at 1603, Until Specified
Notify anesthesiologist immediately if respiratory rate less than or equal to 8 breaths per minute., PACU (only) And naloxone (NARCAN) injection 0.1 mgJump to med 0.1 mg, Intravenous, As needed, opioid reversal, Starting on Linh 08/19/20 at 1602, PACU (only)
[] Mix nalOXone (NARCAN) 0.4 mg (1ml) with 9 mL of Normal Saline to total 10 mL. [] Administer 0.1 mg (2.5ml) IV Push every 2 minutes until respiratory rate is 10 or greater.
And naloxone (NARCAN) injection 0.4 mgJump to med 0.4 mg, Intravenous, As needed, opioid reversal, patient is pulseless, breathless, and unresponsive, Starting on Linh 08/19/20 at 1602, PACU (only)
Call a code first, then administer naloxone dose undiluted IV Push over 30 seconds.
(unrecognized sect ion and content) No Status Records FoundNo Status Records FoundNo Status Records FoundNo Status Records Found INFORMATION SOURCE (unrecogn ized section and content) DATE CREATED AUTHOR AUTHOR'S ORGANIZ ATION 03/03/2021 [facility] DATE CREATED AUTHOR AUTHOR'S ORGANIZ ATION 03/11/2021 [facility] DATE CREATED AUTHOR AUTHOR'S ORGANIZ ATION 04/15/2021 [facility] Care Teams (unrecognized sec tion and content) [employer] Relationship Specialty Start Date End Date Renée Shipley MD [address] [phone] PCP - General Internal Medicine 02/16/20 [employer] Relationship Specialty Start Date End Date Renée Shipley MD [address] [id number] PCP - General Internal Medicine 02/16/20 [employer] Relationship Specialty Start Date End Date Renée Shipley MD [address] [id number] PCP - General Internal Medicine 02/16/20 [employer] Relationship Specialty Start Date End Date Renée Shipley MD [address] [id number] PCP - General Internal Medicine 02/16/20 FOR RECORDS PERTAINING TO PATIENTS WHO ARE OR HAVE BEEN ENROLLED IN A CHEMICAL DEPENDENCY/SUBSTANCEABUSE PROGRAM, SOME INFORMATION MAY BE OMITTED. This clinical summary was aggregated from multiple sources. Caution should be exercised in using it in the provision of clinical care. This summary normalizes information from multiple sources, and as a consequence, information in this document may materially change the coding, format and clinical context of patient data. In addition, data may be omitted in some cases. CLINICAL DECISIONS SHOULD BE BASED ON THE PRIMARY CLINICAL RECORDS. [facility] [employer] provides no warranty or guarantee of the accuracy or completeness of information in this document.
[2023-03-07 12:45] LABS: Absolute Lymphocyte Count 2.16 X10^3/uL (0.83-4.51); Basophil# 0.05 X10^3/uL; Basophil% 1.1 % (0-1); Eosinophil# 0.04 X10^3/uL; Eosinophils% 0.9 % (0-5); Hematocrit 48.6 % (40-54); Hemoglobin 16.7 g/dL (13.0-16.5); Lymphocyte # 2.16 X10^3/ul (0.83-4.51); Lymphocyte % 46.8 % (19-41); Mean Corp Hgb Conc 34.4 g/dL (32-36); Mean Corpuscular Hgb 32.8 pg (27.0-32.0); Mean Corpuscular Volume 95.5 fL (80-94); Mean Platelet Vol. 11.1 fl (6.2-12.0); Monocyte# 0.36 X10^3/uL; Monocyte% 7.8 % (0-10); NRBC Flagged by Analyzer 0 % (0-5); Neutrophil % 43.2 % (47-70); Platelet Count 228 K/mm3 (150-450); RBC Distribution Width CV 12.4 % (11.6-14.6); RBC Distribution Width SD 43.5 fl (35.1-43.9); Red Blood Count 5.09 M/mm3 (4.6-6.2); White Blood Count 4.6 K/mm3 (4.4-11.0)
[2023-03-07 13:28] LABS: ALB/GLOB Ratio 1.1 RATIO (0.9-2.4); AST(SGOT) 21 U/L (15-37); Alanine Aminotransfer ALT/SGPT 36 U/L (16-61); Alkaline Phosphatase 90 U/L (45-117); Anion Gap 5 (5-15); BUN 14 mg/dL (7-18); BUN/Creat Ratio 15.2 RATIO (10-20); Chloride 111 mmol/L (98-107); Cholesterol 174 mg/dL (200); Creatinine, Serum 0.92 mg/dL (0.70-1.30); EST Glomerular Filtration Rate 95 mL/min (>60); Est Glom Filt Rate - Afr Amer 115 mL/min (>60); Globulin 3.6 g/dL (2.2-4.2); Glucose 95 mg/dL (74-106); High Density Lipoprotein 64 mg/dL; PSA,Total - Annual Screen 0.62 ng/mL (0.00-4.00); Potassium 4.4 mmol/L (3.5-5.1); Protein, Total 7.6 g/dL (6.4-8.2); Sodium Level 142 mmol/L (136-145); Thyroid Stim Hormone (TSH) 1.74 uIU/mL (0.358-3.74); Triglycerides 68 mg/dL; Very Low Density Lipoprotein 14 mg/dL (5-40)
[2023-03-07 13:34] LABS: Hemoglobin A1c 4.6 % (3.8-5.6)
== END | disposition home or self-care (01) ==
PROVIDERS: Visit Provider Nurse Practitioner Family
DX: Z00.00 Encounter for general adult medical examination without abnormal findings (principal)
CPT/HCPCS: 36415; 80053; 80061; 83036; 84153; 84443; 85025; G0103

== ENCOUNTER → 2023-03-08 | Outpatient (CLI) | payer OTHER, SELFPAY ==
--- NOTE | 2023-03-08 07:06 | EKG12_ITS ---
Test Reason : HTN Blood Pressure : / mmHG Vent. Rate : 082 BPM Atrial Rate : 082 BPM P-R Int : 136 ms QRS Dur : 086 ms QT Int : 360 ms P-R-T Axes : 010 058 010 degrees QTc Int : 420 ms Normal sinus rhythm Normal ECG Confirmed by ASHLEY WEIR, INGRID ([id number]), make up editor AMARJIT ALCANTAR ([id number]) on 03/08/2023 1:21:42 PM Referred By: Catarino Monae Confirmed By:INGRID RAMIREZ MD
--- OUTSIDE RECORDS SUMMARY | 2023-03-08 07:07 | XMS RPT_ITS | CCD ---
Author Name Unknown Address [address] [place] [address] Organization [facility] Care Team Providers Care Apparel Machinery Instructor Name Role Phone Quinten, Renée Primary Care Provider [phone] Quinten, Renée Primary Care Provider Quinten, Renée Unavailable Quinten, Renée Primary Care Provider Quinten, Renée Unavailable Quinten WEIR, Renée Primary Care Provider Quinten MD, Renée Unavailable QUINTEN, RENÉE Admitting Unavailable QUINTEN, RENÉE Primary Care Unavailable QUINTEN, RENÉE Admitting Unavailable QUINTEN, RENÉE Primary Care Unavailable GAS MAIN AND LINE FITTER, DONNAMARIE Admitting Unavailable GAS MAIN AND LINE FITTER, DONNAMARIE Attending Unavailable QUINTEN, RENÉE Primary Care Unavailable GAS MAIN AND LINE FITTER, DONNAMARIE Admitting Unavailable GAS MAIN AND LINE FITTER, DONNAMARIE Referring Unavailable QUINTEN, RENÉE Primary Care Unavailable KARYN RENE Attending Unavailabl e Quinten WEIR, Renée Primary Care Provider Quinten MD, Renée Unavailable Quinten MD, Renée Unavailable QUINTEN, RENÉE Primary Care Unavailable QUINTEN, RENÉE Attending Unavailable QUINTEN, RENÉE Primary Care Unavailable NORMAN PRESSLEY Attending Unavailable QUINTEN, RENÉE Primary Care Unavailable NORMAN PRESSLEY Attending Unavailable QUINTEN, RENÉE Primary Care Unavailable QUINTEN, RENÉE Admitting Unavailable GAS MAIN AND LINE FITTER, DONNAMARIE Attending Unavailable QUINTEN, RENÉE Referring Unavailable QUINTEN, RENÉE Primary Care Unavailable GAS MAIN AND LINE FITTER, DONNAMARIE Attending Unavailable QUINTEN, RENÉE Primary Care Unavailable QUINTEN, RENÉE Attending Unavailable QUINTEN, RENÉE Primary Care Unavailable QUINTEN, RENÉE Attending Unavailable QUINTEN, RENÉE Primary Care Unavailable QUINTEN, RENÉE Referring Unavailable QUINTEN, RENÉE Attending Unavailable QUINTEN, RENÉE Primary Care Unavailable GAS MAIN AND LINE FITTER, DONNAMARIE Admitting Unavailable QUINTEN, RENÉE Primary Care Unavailable GAS MAIN AND LINE FITTER, DONNAMARIE Referring Unavailable Allergies Allergy Classification Reported Allergen(s) Allergy Type Date of Onset Reaction(s) Facility Penicillins (antibiotic) (7 sources) Penicillins; Translations: [PENICILLINS] Drug Allergy 02-17-2020 Rash [facility] Shellfish (7 sources) Shellfish; Translations: [SHELLFISH DERIVED] Food Allergy 02-17-2020 Anaphylaxis [facility] (12 sources) Penicillins; Translations: [PENICILLINS] Propensity to adverse reactions to drug 02-17-2020 Rash [facility] (12 sources) Shellfish; Translations: [SHELLFISH DERIVED] Propensity to adverse reactions to drug 02-17-2020 Anaphylaxis [facility] (19 sources) Bee Venom Protein (Honey Bee); Translations: [BEE VENOM PROTEIN (HONEY BEE)] Propensity to adverse reactions to drug 02-17-2020 [facility] Medications Current Medications Medication Drug [...] 180.3 cm Renée Shipley MD Work Phone: [facility] 03-02-2021 15:50-0500 Body mass index (BMI) [Ratio] 42.22 kg/m2 Renée Shipley MD Work Phone: [facility] 03-02-2021 15:50-0500 Body temperature 98.91 [degF] Renée Shipley MD Work Phone: [facility] 03-02-2021 15:50-0500 Body weight 137.3 kg Renée Shipley MD Work Phone: [facility] 03-02-2021 15:50-0500 Diastolic blood pressure 83 mm[Hg] Renée Shipley MD Work Phone: [facility] 03-02-2021 15:50-0500 Heart rate 83 /min Renée Shipley MD Work Phone: [facility] 03-02-2021 15:50-0500 Respiratory rate 18 /min Renée Shipley MD Work Phone: [facility] 03-02-2021 15:50-0500 SaO2% (BldA) [Mass fraction] 95 % Renée Shipley MD Work Phone: [facility] 03-02-2021 15:50-0500 Systolic blood pressure 118 mm[Hg] Renée Shipley MD Work Phone: [facility] 08-31-2020 13:22-0400 Body mass index (BMI) [Ratio] 39.47 kg/m2 Sandra Wellington MD Work Phone: [facility] 08-31-2020 13:22-0400 Body weight 128.37 kg Sandra Wellington MD Work Phone: [facility] 08-31-2020 13:22-0400 Diastolic blood pressure 92 mm[Hg] Sandra Wellington MD Work Phone: [facility] 08-31-2020 13:22-0400 Heart rate 92 /min Sandra Wellington MD Work Phone: [facility] 08-31-2020 13:22-0400 Systolic blood pressure 136 mm[Hg] Sandra coleman MD Work Phone: [facility] 08-19-2020 18:03-0400 Body temperature 97.5 [degF] Sandra Wellington MD Work Phone: [facility] 08-19-2020 17:48-0400 Diastolic blood pressure 93 mm[Hg] Sandra Wellington MD Work Phone: [facility] 08-19-2020 17:48-0400 Heart rate 67 /min Sandra Wellington MD Work Phone: [facility] 08-19-2020 17:48-0400 Respiratory rate 16 /min Sandra Wellington MD Work Phone: [facility] 08-19-2020 17:48-0400 SaO2% (BldA) [Mass fraction] 98 % Sandra Wellington MD Work Phone: [facility] 08-19-2020 17:48-0400 Systolic blood pressure 142 mm[Hg] Sandra coleman MD Work Phone: [facility] 08-19-2020 10:44-0400 Body height 180.3 cm Sandra Wellington MD Work Phone: [facility] 08-19-2020 10:44-0400 Body mass index (BMI) [Ratio] 39.11 kg/m2 Sandra Wellington MD Work Phone: [facility] 08-19-2020 10:44-0400 Body weight 127.2 kg Sandra Wellington MD Work Phone: [facility] 08-10-2020 08:39-0400 Body height 180.3 cm Sandra Wellington MD Work Phone: [facility] 08-10-2020 08:39-0400 Body mass index (BMI) [Ratio] 39.33 kg/m2 Sandra Wellington MD Work Phone: [facility] 08-10-2020 08:39-0400 Body weight 127.91 kg Sandra Wellington MD Work Phone: [facility] 08-10-2020 08:39-0400 Diastolic blood pressure 87 mm[Hg] Sandra Wellington MD Work Phone: [facility] 08-10-2020 08:39-0400 Heart rate 84 /min Sandra Wellington MD Work Phone: [facility] 08-10-2020 08:39-0400 Respiratory rate 16 /min Sandra Wellington MD Work Phone: [facility] 08-10-2020 08:39-0400 SaO2% (BldA) [Mass fraction] 94 % Sandra Wellington MD Work Phone: [facility] 08-10-2020 08:39-0400 Systolic blood pressure 132 mm[Hg] Sandra coleman MD Work Phone: [facility] 05-04-2020 09:20-0400 BP Diastolic 87 mm[Hg] Renée Trevinor [facility] 05-04-2020 09:20-0400 BP Systolic 132 mm[Hg] Renée Quinten [facility] 05-04-2020 09:15-0400 BMI (Body Mass Index) 38.15 kg/m2 Renée Quinten [facility] 05-04-2020 09:15-0400 Body Temperature 98.49 [degF] Renée Quinten [facility] 05-04-2020 09:15-0400 Body weight 127.6 kg Rneée Trevinor [facility] 05-04-2020 09:15-0400 Height 182.9 cm Renée Quinten [facility] 05-04-2020 09:15-0400 Pulse (Heart Rate) 83 /min Renée Trevinor [facility] 05-04-2020 09:15-0400 Pulse Oximetry 98 % Renée Trevinor [facility] 05-04-2020 09:15-0400 Respiratory Rate 18 /min Renée Trevinor [facility] 03-09-2020 09:17-0500 BP Diastolic 90 mm[Hg] Renuka Tameka [facility] 03-09-2020 09:17-0500 BP Systolic 141 mm[Hg] Renuka Tameka [facility] 03-09-2020 09:17-0500 Pulse (Heart Rate) 82 /min Renuka Tameka [facility] 03-09-2020 09:12-0500 BMI (Body Mass Index) 38.61 kg/m2 Renuka Tameka [facility] 03-09-2020 09:12-0500 Body Temperature 98.01 [degF] Renuka Tameka [facility] 03-09-2020 09:12-0500 Body weight 129.14 kg Renuka Tameka [facility] 01-19-2021 09:12-0500 Height 182.9 cm Renuka English [facility] 03-09-2020 09:12-0500 Pulse Oximetry 95 % Renuka English [facility] 03-09-2020 09:12-0500 Respiratory Rate 18 /min Renuka English [facility] 02-17-2020 08:28-0500 BP Diastolic 100 mm[Hg] Renée Trevinor [facility] 02-17-2020 08:28-0500 BP Systolic 141 mm[Hg] Renée Quinten [facility] 02-17-2020 08:24-0500 BMI (Body Mass Index) 39.2 kg/m2 Renée Trevinor [facility] 02-17-2020 08:24-0500 Body Temperature 98.91 [degF] Renée Trevinor [facility] 02-17-2020 08:24-0500 Body weight 131.09 kg Renée Trevinor [facility] 02-17-2020 08:24-0500 Height 182.9 cm Renée Shipley [facility] 02-17-2020 08:24-0500 Pulse (Heart Rate) 75 /min Renée Trevinor [facility] 02-17-2020 08:24-0500 Pulse Oximetry 97 % Renée Trevinor [facility] 02-17-2020 08:24-0500 Respiratory Rate 18 /min Renée Trevinor [facility] Encounters Encounter Date Encounter Type Care Provider Facility Start: 05-11-2021 Refill Zari Pinedo RN [facility] Start: 03-04-2021 End: 03-05-2021 ambulatory RENÉE SHIPLEY [facility] Start: 03-02-2021 End: 03-02-2021 ambulatory RENÉERAMONA SHIPLEY [facility] Start: 03-02-2021 End: 03-02-2021 Office outpatient visit 15 minutes Renée Shipley MD Work Phone: [facility] Procedures Date Procedure Procedure Detail Performing Clinician Start: 02-17-2020 Hemoglobin A1c/Hemoglobin.total in Blood Renée Shipley Work Phone: Start: 02-17-2020 Adult depression screening assessment Renée Shipley Plan of Treatment Date Care Activity Detail Author Start: 08-19-2021 Tetanus vaccination Tetanus: Every 10yrs [facility] Start: 02-16-2021 Adolescent depression screening assessment Depression Screening (PHQ9) [facility] Start: 02-16-2021 History and physical examination, annual for health maintenance Wellness Visit [facility] Start: 10-26-2020 End: 10-26-2020 Office Visit 10/26/2020 Office Visit Primary Care Renée Shipley MD [address] [facility] [address] [place] [address] [phone] [facility] Start: 10-20-2020 Influenza vaccination Sequential Influenza Vaccine (#1) [facility] Start: 08-19-2020 End: 08-19-2020 Admission to same day surgery center 08/19/2020 Surgery Sandra Wellington MD [address] [facility] [address] [place] [address] [phone] REPAIR HERNIA TRANSABDOMINAL ROBOTIC [facility] Periop Immunizations Immunization Date Immunization Notes Care Provider Fa cility 01-20-2020 influenza, injectabl e, quadrivalent, contains preservative Renée Quinten [facility] 01-20-2020 pneumococcal conjuga te vaccine, 13 valent Renée Quinten [facility] 02-28-2018 hepatitis A vaccine, adult dosage Ra nancy Quinten [facility] 08-20-2011 tetanus toxoid, redu calvin diphtheria toxoid, and acellular pertussis vaccine, adsorbed Renée Quinten [facility] Payers Date Payer Category Payer Unknown [id number] 2019 Unknown [id number] 2019 Unknown [id number] 2019 Unknown [id number] 1977 Unknown [id number] 2.16. [id number] 1977 Unknown [id number] 2.16. [id number] 1977 Unknown [id number] 2.16. [id number] 1977 Unknown [id number] 2.16. [id number] 1977 Unknown [id number] 2.16. [id number] 1977 Unknown [id number] 2.16. [id number] 1977 Unknown [id number] 2.16. [id number] 1977 Unknown [id number] 2.16. [id number] 1977 Unknown [id number] 2.16. [id number] 1977 Unknown [id number] 2.16. [id number] 1977 Unknown [id number] 2.16. [id number] 1977 Unknown [id number] 2.16. [id number] 1977 Unknown [id number] 2.16. [id number] 1975 Unknown [id number] 2.16. [id number] Social History Date Type Detail Facility Start: 03-09-2020 End: 08-12-2020 Tobacco smoking status WVIS Former smoker [facility] Start: 03-09-2020 End: 08-12-2020 Tobacco use and exposure Never used [facility] Start: 03-09-2020 End: 03-02-2021 Alcohol intake Current drinker of alcohol (finding) [facility] Start: 02-17-2020 History SDOH Alcohol Frequency 3 [facility] Start: 1975 Sex Assigned At Not [facility] file [facility] Exposure to SARS-CoV -2 (event) Not sure [facility] End: 02-19-2018 History of tobacco use Current smoker [facility] Start: 08-10-2020 End: 08-12-2020 Cigarettes smoked current (pack per day) - Reported [facility] Start: 08-10-2020 Alcohol Comment occasionally [facility] Start: 08-12-2020 Tobacco Comment quit 2019 [facility] Medical Equipment Procedure Code Equipment Code Equipment Origin al Text Equipment Identifier Dates Mesh 4.5in Circl e Echo [address]ralight [address] - Sn/A [id number] Start: 08-19-2020 Clinical Notes 08-10-2020 to 05-11-2021 Telephone Encounter - Zari Pinedo RN - 05/11/2021 9:59 AM EDTTelephone Encounter - Zrai Pinedo RN - 05/11/2021 9:59 AM EDTPatient Krystian Shipley MD - 03/02/2021 3:54 PM EST Note Date & Type Note Facility 05-11-2021 Telephone encounter Note RECEIVED FAX FROM PHARMACY. REQUESTING REFILL ON COZAAR. LAST OV 03/02/21. NO FUTURE VISITS SCHEDULED. [facility] 05-11-2021 Miscellaneous Notes RECEIVED FAX FROM PHARMACY. REQUESTING REFILL ON COZAAR. LAST OV 03/02/21. NO FUTURE VISITS SCHEDULED. documented in this encounter [facility] 03-02-2021 Brandy Shipley MD - [...] Most normal results will be available through [employer] however if abnormal, you will be notified. [...] look into their status. Customer Service/Billing Questions: [phone] [employer] Assistance: [phone] or [phone] Financial Assistance: [phone] or [phone] documented in this encounter [facility] 03-02-2021 Miscellaneous Notes Associated Problem(s): [...] Pt expressed understanding. documented in this encounter [facility] 03-02-2021 History of Presen t [...] effects of the medications. Renée Shipley MD [place] [address] [facility] [address] [place] [phone] Dept: [phone] documented in this encounter [facility] 02-15-2021 Miscellaneous Notes RECEIVED FAX FROM PHARMACY. REQUESTING REFILL ON QUEUED MEDICATION(S). LAST OV:11/10/20 NEXT OV: none scheduled documented in this encounter [facility] 02-13-2021 Note HNO ID: [id number] Author: Zari Alas PA-C Service: ? Author Type: Physician Boom Worker Type: Progress Notes Filed: 02/13/2021 12:45 PM [...] surgery in 2019. Had been seen at [facility] clinic on and given rx for conjunctivitis [...] Discussed medication indications, (more content not included)... [facility] 02-13-2021 Note HNO ID: [id number] Author: Brisa Torres APRN.UMBRELLA TIPPER [employer] Service: ? Author Type: Nurse Practitioner Type: Progress Notes Filed: 02/13/2021 10:28 AM Note Text: Telemedicine Visit - Distance Health Virtual Visit Note Patient seen on [employer] platform. Location of patient: [place] History of Present Illness Aguila English is [...] care - All questions answered Brisa Torres APRN.UMBRELLA TIPPER [employer] If you let us know who your [...] help in providing you the best care. [facility] 02-01-2021 Miscellaneous Notes FAX REQUEST RECEIVED FROM PHARMACY. REQUESTING REFILL ON ZOLOFT. LAST OV 11/10/20 (TELEHEALTH). NO FUTURE VISITS ON FILE. documented in this encounter [facility] 11-10-2020 Miscellaneous Notes Associated Problem(s): [...] combination of both. documented in this encounter [facility] 11-10-2020 Instructions Renée Shipley MD [...] Most normal results will be available through [employer] however if abnormal, you will be notified. [...] look into their status. Customer Service/Billing Questions: [phone] [employer] Assistance: [phone] or [phone] Financial Assistance: [phone] or [phone] documented in this encounter [facility] 11-10-2020 History of Presen t illness Narrative Video Visit [facility] [address] [facility] [address] [facility] [phone] Video Visit [facility] 11/10/2020 Renée Shipley MD Provider Location: [address] [place] [address]. Patient Location Branch Billing Payroll Clerk: None Patient Location: Patient's Home Patient: Samson [...] there are inherent diagnostic limitations compared to [id number] evaluations. We elected to proceed with the [...] Renée Shipley MD documented in this encounter [facility] 08-31-2020 History of Presen t illness Narrative [facility] PATIENT: Samson English DATE / TIME: [...] concern for recurrence. documented in this encounter [facility] 08-19-2020 Hospital Discharg Kelly Shields RN - 08/19/2020 5:50 PM EDT GENERAL POST-OPERATIVE PATIENT INSTRUCTIONS ANESTHESIA PRECAUTIONS: A responsible adult must stay with you for at least 24 hours after surgery. You may feel light headed,, dizzy, or nauseated during this time. Do not operate a vehicle (car, bike, motorcycle, finisher screwdown) machinery or power tools. Do not make [...] to call your physician or the hospital crusher and binder operator if you have any questions, and they will be glad to assist you. Teir Ding RN - 08/19/2020 GENERAL POST-OPERATIVE PATIENT INSTRUCTIONS ANESTHESIA PRECAUTIONS: A responsible adult must stay with you for at least 24 hours after surgery. You may feel light headed,, dizzy, or nauseated during this time. Do not operate a vehicle (car, bike, motorcycle, finisher screwdown) machinery or power tools. Do not make [...] to call your physician or the hospital crusher and binder operator if you have any questions, and they will be glad to assist you. documented in this encounter [facility] 08-19-2020 Miscellaneous Notes Brief Post Operative Note Patient Name: Samson English : 1975 (44 y.o.) Date of Service: 08/19/2020 CSN: [id number] Procedure(s): REPAIR HERNIA TRANSABDOMINAL ROBOTIC XI Pre-Operative Diagnoses: * Ventral hernia without obstruction or gangrene [K43.9] Post-Operative Diagnoses: * Ventral hernia without obstruction or gangrene [K43.9] Surgeon(s) and Role: * Sandra Wellington MD - Primary Anesthesiologist: John Esquivel DO SENIOR UI UX DESIGNER: Vijaya Willis CRNA Scrub Person: Fina Hernandez Registration Coordinator Orientee: Yudy Rodgers RN Registration Coordinator Preceptor: Elodia Trotter RN Nurse Float: Hilda Queen RN; Aaron Pham RN Operative findings: incarcerated umbilical hernia Intra and immediate post-operative complications: none Type of anesthesia used: General Estimated blood loss: 5 mL Estimated urine output: 100 mL Specimen(s): * No specimens in log * Implant(s): Implant Name Type Inv. Item Serial No. Binding Folder Machine Lot No. LRB No. Used Action MESH 4.5IN [employer] [address] - SN/A Mesh MESH 4.5IN KIA[employer] E[employer] [address] ST N/A [employer] [id number] N/A 1 Implanted Drain(s): Urethral Catheter Latex 16 Fr. (Active) Wound(s): Wound 08/19/20 Surgical Wound Abdomen (Active) Sandra Wellington MD 08/19/2020 4:01 PM documented in this encounter [facility] 08-19-2020 History and physical note INTERVAL HISTORY AND PHYSICAL Patient Name: Samson English Admit Date: [id number] MR #: [id number] : 1975 The H&P has been reviewed and the patient has been examined. I concur with the findings of the H&P. There are no significant changes. It is appropriate to proceed with the planned procedure. Sandra Wellington MD 08/19/2020 1:27 PM [facility] [place] PATIENT: Samson English DATE / TIME: 08/10/20 [...] time 30 minutes, green 50% was spent [id number] with the patient obtaining history, performing exam describing the procedure obtaining consent and coordinating care Anticip Anesthesia: Follow-up: ICD: Ventral hernia without obstruction or gangrene [K43.9] [] Thank you for the privilege of allowing me to participate in the care of Samson English. documented in this encounter [facility] 08-10-2020 History of Presen t illness Narrative [facility] PATIENT: Samson English DATE / TIME: [...] time 30 minutes, green 50% was spent [id number] with the patient obtaining history, performing exam describing the procedure obtaining consent and coordinating care Anticip Anesthesia: Follow-up: ICD: Ventral hernia without obstruction or gangrene [K43.9] [] Thank you for the privilege of allowing me to participate in the care of Samson English. documented in this encounter [facility] 08-10-2020 History of Presen t illness Narrative [facility] [place] PATIENT: Samson English DATE / TIME: 08/10/20 [...] time 30 minutes, green 50% was spent [id number] with the patient obtaining history, performing exam describing the procedure obtaining consent and coordinating care Anticip Anesthesia: Follow-up: ICD: Ventral hernia without obstruction or gangrene [K43.9] [] Thank you for the privilege of allowing me to participate in the care of Samson English. documented in this encounter [facility]- [facility] Ass[facility] Diagnosis Hypertension, essential- Primary Unspecified essential hypertension Diagnosis Wellness examination Diagnosis Hypertension, essential- Primary Unspecified essential hypertension Obesity (BMI 30-39.9) Diagnosis Wellness examination- Primary Obesity (BMI 30-39.9) Hypertension, essential Unspecified essential hypertension Advance Directives Documents on File Type Date Recorded Patient Sales Systems Engineer Expl anation Advance Directives and Living Will Documents on File Type Date Recorded Patient Sales Systems Engineer Expl anation Advance Directives and Livin g Will 08/12/2020 8:21 AM Documents on File Type Date Recorded Patient Sales Systems Engineer Expl anation Advance Directives and Livin g Will 08/19/2020 10:25 AM Documents on File Type Date Recorded Patient Sales Systems Engineer Expl anation Advance Directives and Livin g [...] Most normal results will be available through [employer] however if abnormal, you will be notified. [...] look into their status. Customer Service/Billing Questions: [phone] [employer] Assistance: [phone] or [phone] Financial Assistance: [phone] or [phone] documented in this encounter* Patient Instructions* Renée [...] Most normal results will be available through [employer] however if abnormal, you will be notified. [...] look into their status. Customer Service/Billing Questions: [phone] MyChart Assistance: [phone] or [phone] Financial Assistance: [phone] or [phone] Starting a Weight Loss Plan: Care Instructions [...] about seeing a registered dietitian or an retail sales specialist. It can be a big challenge [...] healthy changes in your diet. ? An retail sales specialist or personal fitness trainer can help you develop a safe and [...] Log into your personal health record on [email or web address] and enter U357 in the Education box to learn more about Starting a Weight Loss Plan: Care Instructions. Current as of: November 12, 2019 Content Version: 12.7 [employer]. Care instructions adapted under license by your healthcare professional. If you have questions about a medical condition or this instruction, always ask your healthcare professional. [employer] disclaims any warranty or liability for your [...] Log into your personal health record on [email or web address] and enter H967 in the Education box to learn more about DASH Diet: Care Instructions. Current as of: October 20, 2019 Content Version: 12.7 [employer]. Care instructions adapted under license by your healthcare professional. If you have questions about a medical condition or this instruction, always ask your healthcare professional. [employer] disclaims any warranty or liability for your [...] Log into your personal health record on [email or web address] and enter X567 in the Education box to learn more about High Blood Pressure: Care Instructions. Current as of: October 20, 2019 Content Version: 12.7 [employer]. Care instructions adapted under license by your healthcare professional. If you have questions about a medical condition or this instruction, always ask your healthcare professional. 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 Occasional wrong-word or sound-like [...] unspecified hernia type Renée Shipley MD [address] [place] [address] Memo Reyna MD [address] [place] [id number] Status Reason Specialty Diagnoses / Procedures Referre d By Contact Referred To Contact Diagnoses Ventral hernia without obstruction or gangrene Ventral hernia without obstruction or gangrene [K43.9] Procedures hernia repair Sandra Wellington MD [address] [place] [id number] Reason Comments Follow-up hernia repair Reason Comments [...] is pulseless, breathless, and unresponsive, Starting on Lnih 08/19/20 at 1602, PACU (only), Call a [...] DATE CREATED AUTHOR AUTHOR'S ORGANIZ ATION 03/03/2021 [facility] DATE CREATED AUTHOR AUTHOR'S ORGANIZ ATION 03/11/2021 [facility] DATE CREATED AUTHOR AUTHOR'S ORGANIZ ATION 04/15/2021 [facility] Care Teams (unrecognized sec tion and content) Apparel Machinery Instructor Relationship Specialty Start Date End Date Renée Shipley MD [address] [place] [id number] PCP - General Internal Medicine 02/16/20 Apparel Machinery Instructor Relationship Specialty Start Date End Date Renée Shipley MD [address] [address] PCP - General Internal Medicine 02/16/20 Apparel Machinery Instructor Relationship Specialty Start Date End Date Renée Shipley MD [address] [address] PCP - General Internal Medicine 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 [facility] [employer] provides no warranty or guarantee of the accuracy or completeness of information in this document.
== END | disposition home or self-care (01) ==
PROVIDERS: Referring Provider Nurse Practitioner Family; Visit Provider Nurse Practitioner Family
DX: I10 Essential (primary) hypertension (principal)
CPT/HCPCS: 93005

== ENCOUNTER 2023-04-04 08:41 | Day surgery (SDC) | payer OTHER, SELFPAY ==
[2023-04-04] VITALS (7 sets, daily range): BP systolic 72–119; BP diastolic 55–76; PULSE 61–73; RESP 16–18; TEMP 36.6–36.8; O2SAT 92–98; BMI 34.4
--- NOTE | 2023-04-04 09:01 | HP.PCM_ITS ---
HPI - General General Date of Service: 04/04/23 HPI Narrative DAILY SANDOVAL, is a 47 M who presents for screening colonoscopy. Patient's never had previous colonoscopy. Patient denies having any chronic abdominal pain/nausea/vomiting/reflux. Patient has bowel movements daily denies any blood. [facility] Medical History (Updated 03/30/23 @ 09:37 by Amber Richter) Anxiety Broken ribs Depression with anxiety Deviated septum Elevated glucose Former smoker History of back injury History of concussion History of head injury HTN (hypertension) Hypertension Hypokalemia Impingement syndrome of right shoulder Left elbow pain Left lateral epicondylitis Obesity [place] (obstructive sleep apnea) Patellar bursitis of right knee Prepatellar bursitis of right knee Vitamin deficiency Wears contact lenses Wears glasses Home Medications epinephrine 0.3 mg/0.3 mL injection, auto-injector 0.3 mg subcut PRN PRN anaphylaxis 04/29/21 [History Last Taken Unknown] losartan 100 mg tablet 100 mg PO DAILY #90 tabs 05/02/22 [Rx Last Taken 04/04/23] Sleep apnea supplies #1 ea 07/19/22 [Rx Last Taken Unknown] doxazosin 4 mg tablet 4 mg PO QHS #90 tabs 09/07/22 [Rx Last Taken Unknown] fexofenadine 60 mg tablet (Ariadna Allergy) 60 mg PO DAILY 03/21/23 [History Last Taken Unknown] lactobacillus combination no.4 3 billion cell capsule (Probiotic) 3,000 mmu cells PO DAILY 03/21/23 [History Last Taken Unknown] sildenafil 25 mg tablet 25 mg PO DAILY PRN sexual activity 03/21/23 [History Last Taken Unknown] tirzepatide 12.5 mg/0.5 mL subcutaneous pen injector (Mounjaro) 12.5 mg subcut QWEEK 03/21/23 [History Last Taken Unknown] Allergy/AdvReac Type Severity Reaction Status Date / Time bee venom protein (honey bee) Allergy Anaphylaxis Verified 04/04/23 09:01 Penicillins Allergy Rash Verified 04/04/23 09:01 shellfish derived Allergy Anaphylaxis Verified 04/04/23 09:01 Family History Mother Hypertension Father Diabetes Heart disease Surgical History (Updated 03/30/23 @ 09:37 by Amber Richter) History of hernia repair History of shoulder surgery Hx of nasal septoplasty Social History (Updated 03/21/23 @ 11:40 by Regina Nogueira) household members: spouse current occupational status: employed Smoking Status: Former smoker quit date: 02/19/18 alcohol intake: current alcohol intake frequency: holidays/special occasions only substance use type: does not use what type of physical activity do you participate in: walking frequency: 3-4 times per week duration: 45-60 minutes/day Past Medical/Surgical History Planned Operation Planned Operative Procedure/s: COLONOSCOPY-OA Previous Hospitalizations/Surgeries HX Hospitalizations: No Any Problems With Anesthesia: No You/Your Family Experience Fever (Hyperthermia) With Anes: No Cholinesterase deficiency: No Cardiovascular Hx of Irregular Heartbeat and/or Afib: No Hx Heart Attack: No Hx Congestive Heart Failure: No Hx Hypertension: Yes (CONTROLLED ON MED) Hx Pacemaker: No Respiratory Hx Chronic Obstructive Pulmonary Disease (COPD): No Hx Asthma: No Hx Emphysema: No Hx Sleep Apnea: No Hx Respiratory Tract Infection/Cold (presently): No Do You Snore Loudly (louder than talking or can be heard): No Do You Often Feel Tired/ Fatigued/ Sleepy Dring Daytime?: No Has Anyone Observed You Stop Breathing During Sleep?: No Result (for STOP score): Negative Smoking Status: Former smoker Gastrointestinal Hx Ulcer: No Neurological Hx Seizures: No Hx Head/Neck Injury: No Hx Headaches: No Hx Back Injury/Pain: No Does patient have nerve stimulator: No Allergies bee venom protein (honey bee) Allergy (Verified 04/04/23 09:01) Anaphylaxis Penicillins Allergy (Verified 04/04/23 09:01) Rash shellfish derived Allergy (Verified 04/04/23 09:01) Anaphylaxis Discharge Is Pt Admitted From a Jail, or a Senior Living: No After D/C, Where Do you Plan to Go: Return Home Physical Exam Const alert, oriented x3 and no apparent distress HEENT normocephalic and head/scalp atraumatic Resp normal respiratory effort Cardio regular rate GI soft to palpation and non-tender; Negative for non-distended Palpation: Negative for guarding Extremity no clubbing, cyanosis or edema Skin no rashes or lesions noted Neuro CN's II-XII intact bilaterally Psych mental status grossly normal Assessment & Plan Assessment/Plan (1) Encounter for screening for malignant neoplasm of colon: Surgery Risks - Colonoscopy I discussed with the patient the risks of the procedure: Yes Risks Include but are not Limited To: Risks include but are not limited to: Bleeding, perforation requiring further surgery, inability to complete colonoscopy requiring barium enema.
[2023-04-04] MEDS: Lactated Ringers 1,000 ML 15 ML IV (09:11)
--- NOTE | 2023-04-04 10:39 | OP.COLON_ITS ---
Patient Name: Samson English Procedure Date: 04/04/2023 10:15 AM Date of : 1975 Age: 47 Procedure: Colonoscopy Indications: Screening for colorectal malignant neoplasm Providers: Emilia Anderson MD Referring MD: Yeimi Moore [facility] Medicines: Monitored Anesthesia Care Patient Profile: This is a 47 year old male. Last Colonoscopy: none. The patient's first colonoscopy is today. Complications: No immediate complications. Procedure: Pre-Anesthesia Assessment: - Prior to the procedure, a History and Physical was performed, and patient medications and allergies were reviewed. The patient's tolerance of previous anesthesia was also reviewed. The risks and benefits of the procedure and the sedation options and risks were discussed with the patient. All questions were answered, and informed consent was obtained. Prior Anticoagulants: The patient has taken no anticoagulant or antiplatelet agents. ASA Grade Assessment: Per anesthesia. After reviewing the risks and benefits, the patient was deemed in satisfactory condition to undergo the procedure. After I obtained informed consent, the scope was passed under direct vision. Throughout the procedure, the patient's blood pressure, pulse, and oxygen saturations were monitored continuously. The Colonoscope was introduced through the anus and advanced to the cecum, identified by the appendiceal orifice, ileocecal valve and palpation. The colonoscopy was performed without difficulty. The patient tolerated the procedure well. The quality of the bowel preparation was good. Scope In: 10:21:38 AM Scope Withdrawal Time 0 hours 6 minutes 44 seconds Scope Out: 10:34:25 AM Total Procedure Duration Time 0 hours 12 minutes 47 seconds Findings: The perianal and digital rectal examinations were normal. The entire examined colon appeared normal on direct and retroflexion views. Impression: - The entire examined colon is normal on direct and retroflexion views. - No specimens collected. Recommendation: - Discharge patient to home. - Resume previous diet. - Continue present medications. - Repeat colonoscopy in 10 years for screening purposes. Procedure Code(s): --- Professional --- G0121, PT, Colorectal cancer screening; colonoscopy on individual not meeting criteria for high risk Diagnosis Code(s): --- Professional --- Z12.11, Encounter for screening for malignant neoplasm of colon CPT copyright 2021 [employer]. All rights reserved. The codes documented in this report are preliminary and upon paper cup machine tender review may be revised to meet current compliance requirements. MD Emilia Mitchell MD 04/04/2023 10:38:51 AM This report has been signed electronically. Number of Addenda: 0 Note Initiated On: 04/04/2023 10:15 AM
--- NOTE | 2023-04-04 10:39 | OP.CCLET_ITS ---
04/04/2023 Yeimi Moore [facility] Re : [facility] This procedure was performed on Tuesday, April 04, 2023. My impressions and recommendations are as follows: Impressions : - The entire examined colon is normal on direct and retroflexion views. - No specimens collected. Recommendations : - Discharge patient to home. - Resume previous diet. - Continue present medications. - Repeat colonoscopy in 10 years for screening purposes. My findings are described in the full procedure note, which is enclosed. If I can be of further assistance, please feel free to contact me at Doctor phone number(s): , Work: . Sincerely, MD Emilia Mitchell MD 04/04/2023 10:38:51 AM This report has been signed electronically.
== END 2023-04-04 11:17 | disposition home or self-care (01) ==
LOC: EN 08:42 → AC 08:43
PROVIDERS: Visit Provider Surgery
PROC: 0DJD8ZZ Inspection of Lower Intestinal Tract, Via Natural or Artificial Opening Endoscopic (ICD-10-PCS; CPT 45378; principal; 2023-04-04 10:25)
DX: Z12.11 Encounter for screening for malignant neoplasm of colon (principal); I10 Essential (primary) hypertension; Z87.891 Personal history of nicotine dependence; Z79.899 Other long term (current) drug therapy; Z79.85 Long-term (current) use of injectable non-insulin antidiabetic drugs; Z87.19 Personal history of other diseases of the digestive system
CPT/HCPCS: 45378; J7120

== ENCOUNTER → 2023-05-21 | Outpatient (CLI) | payer OTHER, SELFPAY ==
[2023-05-26 20:07] LABS: Testosterone, % Free 4.13 % (1.50-4.20); Testosterone, Free 11.11 ng/dL (5.00-21.00); Testosterone, Total 269 ng/dL (264-916)
== END | disposition home or self-care (01) ==
LOC: LAB.FUTURE 08:00
PROVIDERS: Referring Provider Nurse Practitioner Family; Visit Provider Nurse Practitioner Family
DX: E29.1 Testicular hypofunction (principal)
CPT/HCPCS: 36415; 84402; 84403

== ENCOUNTER → 2023-06-15 | Outpatient (CLI) | payer OTHER, SELFPAY ==
--- NOTE | 2023-06-15 10:58 | US_ITS ---
STUDY: SUPERFICIAL ULTRASOUND - RIGHT POSTERIOR NECK PALPABLE LUMP. REASON FOR EXAM: Male, 47 years old. LUMP,SWELLING following injury. TECHNIQUE: A superficial ultrasound was performed with real-time and static finn-scale imaging. COMPARISON: None. FINDINGS: The palpable abnormality corresponds to 1.5 cm x 1.3 cm x 1.2 cm well-circumscribed isoechoic nodular density. Peripheral vascularity is seen. Tissue diagnosis is recommended. US/Head/Neck Soft Tissue IMPRESSION: 1.5 cm x 1.3 cm x 1.2 cm well-circumscribed isoechoic nodular density at the palpable site. Biopsy recommended. Electronically Signed: Brian Bob MD at 13:01 EDT ,
== END | disposition home or self-care (01) ==
PROVIDERS: Referring Provider Nurse Practitioner Family; Visit Provider Nurse Practitioner Family
DX: R22.1 Localized swelling, mass and lump, neck (principal)
CPT/HCPCS: 76536

== ENCOUNTER → 2023-06-20 | Outpatient (CLI) | payer OTHER, SELFPAY ==
[2023-06-20 10:29] LABS: Estradiol 30.4 pg/mL; Follicle Stimulating Hormone 1.5 mIU/mL; Luteinizing Hormone 0.9 mIU/mL
[2023-06-20 10:30] LABS: Hemoglobin A1c 4.6 % (3.8-5.6)
--- NOTE | 2023-06-20 10:45 | CYST_PTH ---
PATIENT: DAILY SANDOVAL LOC: [facility] U#:[id number] AGE/SX: 47/M ROOM: RE06/20/[address]: ROB Doty : 1975 BED: DIS: 06/20/2023 SPEC #: [id number] RECD: 06/20/23 12:11 STATUS: NURA EDWARD #: [id number] DESMOND: 06/20/23 10:[address]: Murray Griffin DEPT: SURGICAL PATHOLOGY RECD BY: Judy An ENTERED: 06/20/23 13:19 SP TYPE: Cyst OTHR DR: ROB Doty [facility] Tissues: CYST Procedures: Surgery Specimen Level III HEADER OPERATION: Excision of right posterior neck cyst PRE-OP DIAGNOSIS: Right neck cyst TISSUE SUBMITTED: Right neck cyst MICROSCOPIC DIAGNOSIS Right neck cyst, excision: Fibrolipoma. AM/mr 5/2/24 MICROSCOPIC DESCRIPTION Slides are reviewed. GROSS DESCRIPTION Received in fixative is one container labeled with the patient's name and designated Right neck cyst. The specimen consists of two ovoid fragments of pink-quinteros tissue. The smaller measures 1.0cm in diameter and the larger measures 1.5cm in diameter. Both fragments are bisected and totally submitted in one cassette. AM/mr 06/20/23 TC:1 CPT: 73352
== END | disposition home or self-care (01) ==
LOC: PAVLAB 09:38
PROVIDERS: Referring Provider Registered Nurse; Visit Provider Registered Nurse
DX: D17.0 Benign lipomatous neoplasm of skin and subcutaneous tissue of head, face and neck (principal); E29.1 Testicular hypofunction; R53.83 Other fatigue; R68.82 Decreased libido; R63.5 Abnormal weight gain; R22.1 Localized swelling, mass and lump, neck
CPT/HCPCS: 36415; 82670; 83001; 83002; 83036; 84270; 88304

== ENCOUNTER → 2023-07-04 | Outpatient (CLI) | payer OTHER, SELFPAY ==
--- NOTE | 2023-07-04 12:44 | NEURO ---
NCS and/or EMG Patient Report Ordering Doctor: Catarino Monae [facility] DATE OF SERVICE: 07/04/23 Samson complains of left-sided neck and arm pain. He reports numbness and tingling in the left arm. Electrodiagnostic findings: Left median motor nerve demonstrates normal distal latency and amplitude with borderline reduced conduction velocity. Left ulnar motor nerve demonstrates normal distal latency and amplitude with normal conduction across the elbow. Normal median and ulnar F?waves. Prolonged left median sensory latency at the wrist. Normal left median palmar response. Normal left ulnar palmar response. Normal left radial sensory response. Needle EMG testing was performed in the left upper limb. All muscles tested showed no evidence of denervation with normal motor unit action potentials. Electrodiagnostic impression: This a normal electrodiagnostic study of the left upper limb. There is no definitive electrodiagnostic evidence for peripheral neuropathy, including carpal tunnel or cubital tunnel syndrome. There is no electrodiagnostic evidence for cervical radiculopathy or brachial plexopathy. Multi Select Codes Neurology Neurology Interp Codes: 63812-00 Musc test done w/n test comp (interp) and 69012-91 Nrv cndj test 7-8 studies (interp)
== END | disposition home or self-care (01) ==
LOC: PSN 10:25
PROVIDERS: PCP Nurse Practitioner Family; Referring Provider Nurse Practitioner Family; Visit Provider Nurse Practitioner Family
DX: G56.32 Lesion of radial nerve, left upper limb (principal)
CPT/HCPCS: 95886; 95910

== ENCOUNTER → 2023-08-30 | Outpatient (CLI) | payer OTHER, SELFPAY ==
[2023-08-30 08:32] LABS: Hematocrit 45.6 % (40-54)
[2023-08-30 09:37] LABS: ALB/GLOB Ratio 1.1 RATIO (0.9-2.4); AST(SGOT) 34 U/L (15-37); Alanine Aminotransfer ALT/SGPT 61 U/L (16-61); Albumin, Serum 3.5 g/dL (3.2-5.0); Alkaline Phosphatase 92 U/L (45-117); Anion Gap 5 (5-15); BUN 18 mg/dL (7-18); BUN/Creat Ratio 20.5 RATIO (10-20); Calcium,Total 8.4 mg/dL (8.5-10.1); Chloride 111 mmol/L (98-107); Cholesterol 127 mg/dL (200); Creatinine, Serum 0.88 mg/dL (0.70-1.30); EST Glomerular Filtration Rate 99 mL/min (>60); Est Glom Filt Rate - Afr Amer 120 mL/min (>60); Estradiol 26.3 pg/mL; Globulin 3.2 g/dL (2.2-4.2); Glucose 95 mg/dL (74-106); High Density Lipoprotein 56 mg/dL; PSA,Total - Annual Screen 0.77 ng/mL (0.00-4.00); Potassium 3.9 mmol/L (3.5-5.1); Protein, Total 6.7 g/dL (6.4-8.2); Sodium Level 138 mmol/L (136-145); Triglycerides 78 mg/dL; Very Low Density Lipoprotein 16 mg/dL (5-40)
[2023-09-06 10:09] LABS: Sex Hormone-binding Globulin 24.7 nmol/L (16.5-55.9); Testosterone, % Free 4.22 % (1.50-4.20); Testosterone, Total 628 ng/dL (264-916)
== END | disposition home or self-care (01) ==
LOC: PAVLAB 08:10
PROVIDERS: PCP Nurse Practitioner Family; Referring Provider Registered Nurse; Visit Provider Registered Nurse
DX: Z00.00 Encounter for general adult medical examination without abnormal findings (principal); R53.83 Other fatigue; Z12.5 Encounter for screening for malignant neoplasm of prostate; R97.20 Elevated prostate specific antigen [PSA]; R68.82 Decreased libido; R63.5 Abnormal weight gain; R35.0 Frequency of micturition; R39.16 Straining to void; E78.9 Disorder of lipoprotein metabolism, unspecified
CPT/HCPCS: 36415; 80053; 80061; 82670; 84153; 84270; 84402; 84403; 85014; 85018; G0103

== ENCOUNTER 2023-09-24 08:54 | Outpatient (RCR) | payer OTHER, SELFPAY ==
--- NOTE | 2023-09-24 10:00 | HP.PTEVAL ---
Patient's Visit Information Visit Information Visit Information: DAILY SANDOVAL is a 47 year old M referred to Physical Therapy by ROB Santos with a diagnosis of L radial nerve injury. Date of Evaluation: 09/24/23 Physical Therapist: Pedro Pablo Farfan, PT, ATC Visit Plan Frequency: 1x/Week Duration: 4 Weeks Plan: L radial nerve glides, DTR, HEP, and US to decrease pain Subjective Subjective: Pt reports he dove into a pool 5 years ago and hit his head on the bottom. Pt reports he instantly had L neck and L UE pain. Pt reports he has had discomfort in his L elbow since. Pt notes he participates in crossfit, and when he performs bicep curls, his L wrist extensor muscl group wants to cramp up on him. Pt notes most of his pain is located on the L lateral elbow. Pt notes sleep difficulty at times secondary to L elbow pain. Pt works for a [employer], and has to travel a lot for meetings. Pt reports he is R hand dominant. Pt reports he gets tingling down his L UE, most notably when he is using his L UE. 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 2/10 pain while sitting here at rest, 10/10 pain when at worst. Pain L lateral forearm: Pain Intensity (Out of 10): 2 Pain Intensity Range: 10 Objective Objective: Neuro: B UE sensation is WNL to light touch. B bicipital reflex= 1/3 Palpation: Pt has mild tenderness throughout L wrist extensors. No obvious deformity at this time. ROM: R wrist flex= 70, ext= 65; L wrist flex= 65, ext= 65 degrees MMT: R wrist flex= 38, ext= 26 #F; L wrist flex= 35, ext= 23 #F Balance/Special Test Scores Quick DASH Score: 38.6350 Goals Goal 1:: Decrease L UE pain x 50% to aid with sleep Goal Time Frame: 2-4 Weeks Goal 2:: Decrease L UE radiculopathy x 50% to aid with IADL's Goal Time Frame: 2-4 Weeks Goal 3:: I with HEP Goal Time Frame: 2-4 Weeks Rehabilitation Potential Physical Therapy Diagnosis: Pt has L forearm pain and difficulty with IADL's secondary to L radial nerve injury Rehabilitation Potential: Good Anticipated Interventions Patient/Client Instruction: Educate patient on: Condition and Plan of Care For the Purpose of:: To improve self management Therapeutic Exercise to Include: Flexibilty training, Passive ROM and Active ROM For the Purpose of:: To decrease pain and To improve muscle performance and motor function Manual Therapy Techniques to Include: Soft tissue mobilization For the Purpose of:: To decrease pain and To improve muscle performance and motor function Ultrasound (thermal/non thermal): Yes For the Purpose of:: To decrease pain Text: Thank you for the opportunity to evaluate your patient. For Medicare and Medicare HMO plans, please review the plan of care and approve it. It will need to be FAXED BACK to us at [phone] for Medicare purposes. For Medicare only, by signing this I certify the plan of care. Please let me know if there are questions or concerns regarding this plan of care. Physician Signature: Date:
--- NOTE | 2023-11-13 15:32 | HP.PT.NRP ---
Patient Information Patient Information: DAILY SANDOVAL was seen in my office for initial evaluation on 09/24/23. The following Plan of Care was established for this patient: POC Established Initial Frequency: 1x/Week Initial Duration: 4 Weeks Anticipated Interventions Patient/Client Instruction: Educate patient on: Condition and Plan of Care For the Purpose of:: To improve self management Therapeutic Exercise to Include: Flexibilty training, Passive ROM and Active ROM For the Purpose of:: To decrease pain and To improve muscle performance and motor function Manual Therapy Techniques to Include: Soft tissue mobilization For the Purpose of:: To decrease pain and To improve muscle performance and motor function Ultrasound (thermal/non thermal): Yes For the Purpose of:: To decrease pain Last Seen Last Seen: This patient was last seen in our office . Pertinent comments regarding their Physical therapy will appear below: Pt was evaluated on 09/24/23 for UE pain. Pt has not returned through todays date and is discontinued at this time. At this point I will be discontinuing this patient from physical therapy. I would be happy to see this patient again in the future if found appropriate by the physician. Thank you! Pedro Pablo Farfan, PT, ATC Balance/Gait/Functional tests Balance/Special Test Scores Quick DASH Score: 38.6350
== END 2023-09-24 19:00 | disposition home or self-care (01) ==
LOC: PT 08:54
PROVIDERS: PCP Nurse Practitioner Family; Referring Provider Nurse Practitioner Family; Visit Provider Nurse Practitioner Family
DX: G56.31 Lesion of radial nerve, right upper limb (principal)
CPT/HCPCS: 97161

== ENCOUNTER → 2023-12-21 | Outpatient (CLI) | payer OTHER, SELFPAY ==
--- NOTE | 2023-12-21 11:09 | MRI_ITS ---
STUDY: MRI LEFT HIP REASON FOR EXAM: Male, 47 years old. Pain -- continued pain after NSAIDs, left TECHNIQUE: Standardized fat and water weighted pulse sequences were obtained in all 3 orthogonal planes. COMPARISON: Left hip radiograph dated 10/31/2023. FINDINGS: There is a tear of the left anterior acetabular labrum (sagittal PD series 8 images 9-11). Intact left hip joint without articular joint space narrowing. Normal acetabulum. Normal femoral head. Normal femoral neck and intratrochanteric region. There is a small left hip joint effusion. Normal gluteus minimus, medius and iliopsoas tendons and distal insertions. There is no trochanteric, iliopsoas or iliopectineal bursitis. Normal superior and inferior pubic rami. Normal pubic symphysis. Normal ischial tuberosity. Normal origin of the hamstring tendons. Normal visualized iliac wing, sacroiliac joint, and sacral ala. There is degenerative disc disease in the visualized lumbosacral spine. Normal visualized soft tissue structures of the pelvis. MRI/Lower Ext Joint Only (Routine) IMPRESSION: Tear of the left anterior acetabular labrum. Small left hip joint effusion. Degenerative disc disease in the visualized lumbosacral spine. Electronically Signed: Franklin Rinaldi MD at 14:09 EDT ,
== END | disposition home or self-care (01) ==
LOC: MRI 10:59
PROVIDERS: PCP Nurse Practitioner Family; Referring Provider Orthopaedic Surgery; Visit Provider Orthopaedic Surgery
DX: M25.552 Pain in left hip (principal)
CPT/HCPCS: 73721

== ENCOUNTER → 2024-02-19 | Outpatient (CLI) | payer OTHER, SELFPAY ==
[2024-02-19 09:13] LABS: Hematocrit 47.1 % (40-54); Hemoglobin 16.5 g/dL (13.0-16.5)
[2024-02-19 09:45] LABS: ALB/GLOB Ratio 1.1 RATIO (0.9-2.4); AST(SGOT) 36 U/L (15-37); Alanine Aminotransfer ALT/SGPT 49 U/L (16-61); Albumin, Serum 3.5 g/dL (3.2-5.0); Alkaline Phosphatase 82 U/L (45-117); Anion Gap 5 (5-15); BUN 11 mg/dL (7-18); BUN/Creat Ratio 10.7 RATIO (10-20); Calcium,Total 8.6 mg/dL (8.5-10.1); Chloride 109 mmol/L (98-107); Creatinine, Serum 1.03 mg/dL (0.70-1.30); EST Glomerular Filtration Rate 83 mL/min (>60); Est Glom Filt Rate - Afr Amer 100 mL/min (>60); Globulin 3.1 g/dL (2.2-4.2); Glucose 111 mg/dL (74-106); PSA,Total - Annual Screen 0.72 ng/mL (0.00-4.00); Potassium 3.8 mmol/L (3.5-5.1); Protein, Total 6.6 g/dL (6.4-8.2); Sodium Level 138 mmol/L (136-145)
[2024-02-24 17:06] LABS: Sex Hormone-binding Globulin 38.3 nmol/L (16.5-55.9); Testosterone, % Free 5.08 % (1.50-4.20); Testosterone, Free 40.23 ng/dL (5.00-21.00); Testosterone, Total 792 ng/dL (264-916)
== END | disposition home or self-care (01) ==
LOC: LAB.FUTURE 08:46 → PAVLAB 08:47
PROVIDERS: PCP Nurse Practitioner Family; Referring Provider Registered Nurse; Visit Provider Registered Nurse
DX: E29.1 Testicular hypofunction (principal); R53.83 Other fatigue; R68.82 Decreased libido; R35.0 Frequency of micturition
CPT/HCPCS: 36415; 80053; 82670; 84153; 84270; 84402; 84403; 85014; 85018; G0103

== ENCOUNTER 2024-06-13 08:00 | Outpatient (RCR) | payer OTHER, SELFPAY ==
--- NOTE | 2024-04-15 14:41 | HP.PTEVAL ---
Patient's Visit Information Visit Information Visit Information: DAILY SANDOVAL is a 48 year old M referred to Physical Therapy by Dr. Fercho Hopper MD with a diagnosis of L labral repair with femoral plasty and micro Fx 04/02/24. Date of Evaluation: 04/15/24 Physical Therapist: Pedro Pablo Farfan, PT, ATC Visit Plan Frequency: 1-2x /Week Duration: 6-8 weeks Plan: Follow protocol Subjective Subjective: DOS: 04/02/24. Pt reports he had a labral repair with a femoraplasty and microfracture performed to his L hip at that time secondary to a congenital deformity that was present. Pt is happy he had the surgery at this time as the sharp pain he had prior to the surgery is no longer present. Pt notes his pain varies at this time as sometimes he is a 0/10, and others a 10/10. Pt denies tingling or numbness in L LE at this time. Pt notes no sleep difficulty as long as he takes his pain meds at night. Pt works mostly at home and is able to work remotely as needed. Pt's job is mostly completed on a computer. Pt has 2 [address] to enter his house which he negotiates by hopping at this time. Pt has been using a CPM machine for ROM up til today, but had to return it today. Pain L hip surgery: Pain Intensity (Out of 10): 0 Pain Intensity Range: 10 Objective Objective: Neuro: B LE sensation is WNL to light touch. B patellar reflex= 1/3 ROM: R hip flexion 120 degrees. L hip flex= Not tersted MMT: R hip flex= 40, abd and add= 55 #F. L not tested Gait: Pt ambulates with the use of 2 crutches. NWBing L LE Balance/Special Test Scores Lower Extremity Functional Score: 10 Goals Goal 1:: Decrease L hip pain x 50% to aid with sleep Goal Time Frame: 6-8 Weeks Goal 2:: Increase L hip strength to equal 90% R hip strength to aid with return to work without limitation Goal Time Frame: 6-8 Weeks Goal 3:: R hip will equal L hip ROM to aid with IADL's Goal Time Frame: 6-8 Weeks Goal 4:: I with HEP Goal Time Frame: 6-8 Weeks Rehabilitation Potential Physical Therapy Diagnosis: Pt has L hip pain, weakness, and limited ROM secondary to L labral repair. Rehabilitation Potential: Good Anticipated Interventions Patient/Client Instruction: Educate patient on: Condition and Plan of Care For the Purpose of:: To improve self management Therapeutic Exercise to Include: Strength training, Endurance training, Balance training, Flexibilty training, Gait and locomotor training, Passive ROM, Active ROM and Dynamic Lumbar Stabilization For the Purpose of:: To decrease pain, To increase ROM and To improve muscle performance and motor function Text: Thank you for the opportunity to evaluate your patient. For Medicare and Medicare HMO plans, please review the plan of care and approve it. It will need to be FAXED BACK to us at [phone] for Medicare purposes. For Medicare only, by signing this I certify the plan of care. Please let me know if there are questions or concerns regarding this plan of care. Physician Signature: Date:
--- NOTE | 2024-08-25 14:34 | HP.PT.NRP ---
Patient Information Patient Information: DAILY SANDOVAL was seen in my office for initial evaluation on 04/15/24. The following Plan of Care was established for this patient: POC Established Initial Frequency: 1-2x /Week Initial Duration: 6-8 weeks Anticipated Interventions Patient/Client Instruction: Educate patient on: Condition and Plan of Care For the Purpose of:: To improve self management Therapeutic Exercise to Include: Strength training, Endurance training, Balance training, Flexibilty training, Gait and locomotor training, Passive ROM, Active ROM and Dynamic Lumbar Stabilization For the Purpose of:: To decrease pain, To increase ROM and To improve muscle performance and motor function Last Seen Last Seen: This patient was last seen in our office . Pertinent comments regarding their Physical therapy will appear below: Pt has not returned for greater than 30 days and is discontinued at this time. At this point I will be discontinuing this patient from physical therapy. I would be happy to see this patient again in the future if found appropriate by the physician. Thank you! Pedro Pablo Farfan, PT, ATC Balance/Gait/Functional tests Balance/Special Test Scores Lower Extremity Functional Score: 10
== END 2024-06-13 19:00 | disposition home or self-care (01) ==
LOC: PT 08:00
PROVIDERS: PCP Nurse Practitioner Family; Referring Provider Orthopaedic Surgery Sports Medicine; Visit Provider Orthopaedic Surgery Sports Medicine
DX: M24.152 Other articular cartilage disorders, left hip (principal); M25.852 Other specified joint disorders, left hip
CPT/HCPCS: 97110; 97161; 97530

== ENCOUNTER → 2024-09-02 | Outpatient (CLI) | payer OTHER, SELFPAY ==
[2024-09-02 09:34] LABS: Hematocrit 49.4 % (40-54); Hemoglobin 17.9 g/dL (13.0-16.5); Immature Granulocytes Count 0.000 X10^3/uL (0.0-0.0); Mean Corp Hgb Conc 36.2 g/dL (32-36); Mean Corpuscular Volume 95.9 fL (80-94); Mean Platelet Vol. 10.3 fl (6.2-12.0); NRBC Flagged by Analyzer 0 % (0-5); Platelet Count 220 K/mm3 (150-450); RBC Distribution Width CV 12.5 % (11.6-14.6); RBC Distribution Width SD 44.3 fl (35.1-43.9); Red Blood Count 5.15 M/mm3 (4.6-6.2); White Blood Count 3.6 K/mm3 (4.4-11.0)
[2024-09-02 10:01] LABS: AST(SGOT) 35 U/L (<=37); Alanine Aminotransfer ALT/SGPT 38 U/L (<=46); Albumin, Serum 4.1 g/dL (3.5-5.0); Alkaline Phosphatase 85 U/L (40-129); Anion Gap 11 (5-15); BUN 15 mg/dL (4-19); BUN/Creat Ratio 13.2 RATIO (10-20); Calcium,Total 9.0 mg/dL (7.6-11.0); Carbon Dioxide 19.8 mmol/L (21.0-32.0); Chloride 107 mmol/L (98-108); Globulin 2.7 g/dL (2.2-4.2); Glucose 99 mg/dL (70-99); Potassium 4.1 mmol/L (3.3-5.1); Vitamin B12 909 pg/mL (180-914); Vitamin D,25 Hydroxy 42.6 ng/mL (30-100)
[2024-09-02 10:26] LABS: Cholesterol 170 mg/dL (<=200); Low Density Lipoprotein Calc. 87 mg/dL; PSA,Total- Diagnostic 0.57 ng/mL (0.00-4.00); Triglycerides 141 mg/dL; Very Low Density Lipoprotein 28 mg/dL (5-40); cholesterol:hdl ratio screen 3.10
[2024-09-07 14:07] LABS: Testosterone, % Free 2.94 % (1.50-4.20); Testosterone, Free 29.34 ng/dL (5.00-21.00)
== END | disposition home or self-care (01) ==
LOC: PAVLAB 09:07
PROVIDERS: Nurse Practitioner Family; PCP Nurse Practitioner Family; Referring Provider Registered Nurse; Visit Provider Registered Nurse
DX: I10 Essential (primary) hypertension (principal); E29.1 Testicular hypofunction; R53.83 Other fatigue; R68.82 Decreased libido; R35.0 Frequency of micturition; E78.9 Disorder of lipoprotein metabolism, unspecified; E55.9 Vitamin D deficiency, unspecified; E53.8 Deficiency of other specified B group vitamins
CPT/HCPCS: 36415; 80053; 80061; 82306; 82607; 82670; 84153; 84270; 84402; 84403; 84443; 85025

== ENCOUNTER → 2024-09-29 | Outpatient (CLI) | payer OTHER, SELFPAY ==
--- NOTE | 2024-09-29 14:44 | MRI_ITS ---
PROCEDURE: LOWER EXT JOINT ONLY (ROUTINE) 09/29/2024 REASON FOR EXAM: HIP JOINT PAIN, RIGHT TECHNIQUE: T1, T2, stir, MR right hip) multiplanar and multisequence images were obtained without IV contrast administration. COMPARISON: None FINDINGS: Bone marrow and osseous structures: There is a 0.8 cm subcortical cyst in the anterior femoral head. There is a 0.7 cm subcortical cyst in the anterior superior acetabulum. There is no abnormal marrow edema to suggest stress reaction or fracture. There is no MR evidence of avascular necrosis. Articular cartilage: There is severe chondromalacia. Labrum: There is a complex tear and degeneration of the labrum. There is a 0.6 cm paralabral cyst at the posterior superior margin. Hip joint: There is no intra-articular body. The ligamentum teres is unremarkable. Hip abductors: The gluteus medius and minimus tendons are intact with mild distal tendinopathy. There is a trace amount of fluid in the trochanteric bursa, with bursitis. Iliopsoas tendon: Intact without tendinosis or tear. No iliopsoas bursitis. There is increased fluid along the rectus femoris tendon with edema and attenuation at the origin without full-thickness tear, grade 2 strain. MRI/Lower Ext Joint Only (Routine) IMPRESSION: There is a 0.8 cm subcortical cyst in the anterior femoral head. There is a 0.7 cm subcortical cyst in the anterior superior acetabulum. 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 There is a complex tear and degeneration of the labrum. There is a 0.6 cm paralabral cyst at the posterior superior labral margin. The gluteus medius and minimus tendons are intact with mild distal tendinopathy . There is a trace amount of fluid in the trochanteric bursa, with bursitis. There is increased fluid along the rectus femoris tendon with edema and attenua tion at the origin without full-thickness tear, grade 2 strain. [facility]
== END | disposition home or self-care (01) ==
LOC: OPMRI 13:59
PROVIDERS: PCP Nurse Practitioner Family; Referring Provider Orthopaedic Surgery Sports Medicine; Visit Provider Orthopaedic Surgery Sports Medicine
DX: M25.551 Pain in right hip (principal)
CPT/HCPCS: 73721

== ENCOUNTER 2024-11-28 12:38 | Emergency (ER) | payer OTHER, SELFPAY ==
[2024-11-28 12:39] VITALS: BP 129/83; PULSE 88; RESP 16; TEMP 36.7; O2SAT 99; BMI 34.2
[2024-11-28 13:28] VITALS: BP 132/83; PULSE 77; RESP 18; O2SAT 98
--- NOTE | 2024-11-28 13:38 | CT_ITS ---
PROCEDURE: ABDOMEN/PELVIS W IV CONT ONLY 11/28/2024 REASON FOR EXAM: ABDOMINAL PAIN TECHNIQUE: Procedure Code: [id number] Modality: CT Procedure: ABDOMEN/PELVIS W IV CONT ONLY Coronal and Sagittal reconstruction series were provided. CONTRAST: Isovue-300 VOLUME: 100 mL One or more dose reduction techniques were used (e.g., Automated exposure control, adjustment of the mA and/or kV according to patient size, use of iterative reconstruction technique. RADIATION DOSE SUMMARY: CTDlvol: 13.30, 24.02 mGy DLP: 1541.66 mGycm COMPARISON: None. FINDINGS: LUNG BASES: Minimal dependent right lower lobe atelectasis. LIVER: Unremarkable. GALLBLADDER: Unremarkable. No calcified stone. BILE DUCTS: No ductal dilation. PANCREAS: Unremarkable. SPLEEN: Unremarkable. ADRENAL GLANDS: Unremarkable. KIDNEYS: The kidneys enhance symmetrically. No hydronephrosis or hydroureter. Mild symmetric perinephric stranding bilaterally, which is nonspecific. Small parapelvic renal cysts noted on the left. STOMACH AND BOWEL: No obstruction or perforation. No wall thickening. No CT evidence of colitis or acute diverticulitis. APPENDIX: Normal-appearing appendix. No CT evidence for appendicitis. RETRO/PERITONEUM: No free fluid. No free air. LYMPH NODES: No lymphadenopathy. PELVIC ORGANS: Unremarkable as visualized. VASCULATURE: No aortic aneurysm. ABDOMINAL WALL AND SOFT TISSUES: Small fat-containing infraumbilical hernia. BONES: No fracture or suspicious osseous abnormality. Degenerative changes of the spine. CT/Abdomen/Pelvis W IV Cont ONLY IMPRESSION: No acute CT abnormality in the abdomen or pelvis. Reading Location: [id number]
--- NOTE | 2024-11-28 13:39 | EX.ED.DYSGE1 ---
HPI History of Present Illness Chief Complaint: Nausea/Vomiting/Diarrhea Narrative Narrative: Patient is a 48-year-old male presenting to the emergency department with abdominal cramping, nausea and diarrhea that started on Sunday. States that he recently traveled to [place] and flew back on Sunday. States that on Sunday he had frequent belching. Reports that starting on Sunday he had nausea with multiple episodes of nonbloody diarrhea. States that this has continued with some intermittent abdominal cramping. States that he is now having muscle cramping in his legs and reports that he is not drinking or eating much due to his symptoms. He denies anyone with similar symptoms that he knows of. He denies fever, chills, chest pain, shortness of breath, vomiting, dysuria or hematuria. Denies eating any abnormal food, recent antibiotic use or any new pets at home. [facility] Medical History Wears contact lenses Wears glasses Former smoker Left lateral epicondylitis Left elbow pain Hypokalemia Impingement syndrome of right shoulder Vitamin deficiency Elevated glucose Prepatellar bursitis of right knee Patellar bursitis of right knee Obesity [place] (obstructive sleep apnea) Depression with anxiety HTN (hypertension) History of back injury History of head injury History of concussion Deviated septum Broken ribs Anxiety Hypertension Home Medications ?Medication ?Instructions ?Recorded ?Last Taken ?Type epinephrine 0.3 mg/0.3 mL 0.3 mg subcut PRN PRN anaphylaxis 04/29/21 Unknown History injection, auto-injector losartan 100 mg tablet 100 mg PO DAILY #90 tabs 05/02/22 04/04/23 Rx Sleep apnea supplies #1 ea 07/19/22 Unknown Rx doxazosin 4 mg tablet 4 mg PO QHS #90 tabs 09/07/22 Unknown Rx fexofenadine 60 mg tablet (Ariadna 60 mg PO DAILY 03/21/23 Unknown History Allergy) AG1 PO 06/20/23 Unknown History testosterone cypionate 100 mg/mL mg IM 06/20/23 Unknown History intramuscular oil etodolac 500 mg tablet 500 mg PO BID #60 tabs 11/03/24 Unknown Rx dicyclomine 10 mg capsule 10 mg PO BID #14 caps 11/28/24 Unknown Rx ondansetron 4 mg disintegrating 4 mg PO Q8H PRN PRN Nausea #10 tabs 11/28/24 Unknown Rx tablet promethazine 25 mg tablet 25 mg PO TID PRN nausea and 11/28/24 Unknown Rx vomiting #14 tabs Allergy/AdvReac Type Severity Reaction Status Date / Time bee venom protein (honey bee) Allergy Anaphylaxis Verified 11/28/24 12:39 Penicillins Allergy Rash Verified 11/28/24 12:39 shellfish derived Allergy Anaphylaxis Verified 11/28/24 12:39 Family History Mother Hypertension Heart disease Father Diabetes Heart disease Kidney disease CVA (cerebral vascular accident) Surgical History History of hip surgery Hx of nasal septoplasty History of shoulder surgery History of hernia repair Social History household members: spouse current occupational status: employed Smoking Status: Former smoker quit date: 02/19/18 how long ago did patient quit smoking: pt vapes alcohol intake: current alcohol intake frequency: holidays/special occasions only substance use type: does not use what type of physical activity do you participate in: walking frequency: 3-4 times per week duration: 45-60 minutes/day ROS ROS ED ROS Narrative see HPI EXAM Physical Exam Narrative Exam Narrative: Vital signs: Reviewed General: Alert and orientedx3. No acute distress HEENT: Head is normocephalic and atraumatic, sinuses nontender, pupils equal round and reactive. Nares are patent. Oropharynx and throat exams normal. Neck: Supple without lymphadenopathy nontender Cardiovascular: Regular rate and rhythm, no murmurs. No rubs or gallops. Normal S1 and S2 Respiratory: Clear to auscultation bilaterally. No wheezes, rales, rhonchi Abdominal: Soft and mildly tender to palpation diffusely. Increased bowel sounds. No guarding or rebound. Nonsurgical abdomen Extremities: No tenderness. No bruising. Normal range of motion. Normal sensation. Skin: No rash or redness. Neurological: Cranial nerves II through XII are grossly intact. Normal strength and sensation. Normal cerebellar function The rest of the physical exam is unremarkable Const Vital Signs: 11/28/24 12:39 11/28/24 13:28 11/28/24 13:48 Temperature 98.0 F Temperature Source Oral Pulse Rate 88 77 Respiratory Rate 16 18 Blood Pressure 129/83 H 132/83 H Blood Pressure Mean 98 99 Pulse Ox 99 98 96 Oxygen Delivery Method Room Air Room Air Room Air 11/28/24 14:08 11/28/24 16:13 Temperature 97.9 F Temperature Source Pulse Rate 87 Respiratory Rate 16 Blood Pressure 113/58 L Blood Pressure Mean 76 Pulse Ox 97 99 Oxygen Delivery Method Room Air MDM MDM MDM Narrative Medical decision making narrative: Patient is a 48-year-old male presenting to the emergency department for abdominal cramping, diarrhea, nausea that started on Sunday. Patient was seen and examined. Vitals are stable. Patient resting bed comfortably no acute distress. Differential includes but is not limited to: Gastroenteritis, colitis, diverticulitis, electrolyte imbalance from diarrhea, less likely ACS Patient given fluid bolus, Zofran, Toradol and Bentyl for symptomatic control. EKG shows NSR, no ischemic changes. CBC with chronic leukopenia noted in August as well at 3.6. Hemoglobin of 17.3, appears hemoconcentrated. CMP with no significant abnormalities. Lipase within normal limits. CT abdomen pelvis shows no acute abnormality. Updated the patient and at bedside on the likely diagnosis of viral gastroenteritis. Initially prescribed Zofran for home however the is requesting Phenergan to be sent. This and Bentyl were sent to the pharmacy. Instructed him to take these. Instructed if he has diarrhea for more than 7 days he needs to follow-up with his primary care doctor to have possible stool studies done. Not think he is at risk for C. difficile or infectious diarrhea to obtain stool studies at this time. Patient discharged from the Emergency Department. I do not feel that the patient's evaluation reveals any acute reason for admission at this time. I instructed them to either follow-up with their primary care physician or promptly return to the Emergency Department for reevaluation should symptoms worsen or new symptoms develop. I explained what symptoms would indicate the need to return to the emergency department. Shared decision making was used. The patient voiced understanding of the treatment plan and is agreeable with it. Clinical impression Nausea Diarrhea Abdominal cramping History & Record Review Discussion w/independent historian: Patient and Significant other Additional record(s) reviewed:: Prior labs Lab Data Attestation: I reviewed the patient's lab results. Labs: Laboratory Results - last 24 hr 11/28/24 13:00 WBC 3.6 L RBC 5.04 Hgb 17.3 H Hct 48.9 MCV 97.0 H MCH 34.3 H MCHC 35.4 RDW Std Deviation 43.5 RDW Coeff of Yuridia 12.2 Plt Count 217 MPV 10.7 Immature Gran % (Auto) 0.300 Neut % (Auto) 43.2 L Lymph % (Auto) 37.7 Stanton % (Auto) 10.2 H Eos % (Auto) 8.0 H Baso % (Auto) 0.6 Absolute Neuts (auto) 1.6 L Absolute Lymphs (auto) 1.37 Nucleated RBC % 0 Sodium 138 Potassium 3.8 Chloride 106 Carbon Dioxide 21.4 Anion Gap 10 BUN 17 Creatinine 0.99 Estim Creat Clear Calc 121.70 Est GFR (MDRD) Non-Af 96 BUN/Creatinine Ratio 16.9 Glucose 95 Calcium 8.7 Total Bilirubin 0.50 AST 24 ALT 28 Alkaline Phosphatase 86 Total Protein 6.9 Albumin 4.1 Globulin 2.9 Albumin/Globulin Ratio 1.4 Lipase 40 Radiography Diagnostic Testing: Clinical Impression(s) from Imaging Studies Abdomen/Pelvis CT 11/28/24 13:38 IMPRESSION: No acute CT abnormality in the abdomen or pelvis. Reading Location: [facility] Discharge Plan Triage Chief Complaint: Nausea/Vomiting/Diarrhea ED Provider: Dena Mack Dx/Rx/DC Orders Clinical Impression: Abdominal cramping, Diarrhea, Nausea Instructions: Abdominal Pain, ED Leg Cramps, ED Gastroenteritis, Viral (Adult) Prescriptions: New ondansetron 4 mg tablet,disintegrating 4 mg PO Q8H PRN PRN (Reason: Nausea) Qty: 10 0RF promethazine 25 mg tablet 25 mg PO TID PRN (Reason: nausea and vomiting) Qty: 14 0RF dicyclomine 10 mg capsule 10 mg PO BID Qty: 14 0RF No Action epinephrine 0.3 mg/0.3 mL auto-injector 0.3 mg subcut PRN PRN (Reason: anaphylaxis) fexofenadine [Ariadna Allergy] 60 mg tablet 60 mg PO DAILY AG1 PO testosterone cypionate 100 mg/mL oil IM etodolac 500 mg tablet 500 mg PO BID Qty: 60 0RF Rx Instructions: take regularly ext 2 weeks, then as needed. Do not take in conjunction with other NSAID Tylenol is okay. losartan 100 mg tablet 100 mg PO DAILY Qty: 90 1RF (DME) Sleep apnea supplies See Rx Instructions .ROUTE .MEDSUPPLY Qty: 1 0RF Rx Instructions: Mask per patient preference optional chinstrap if indicated, filters, tubing, humidifier, and lifetime supplies. doxazosin 4 mg tablet 4 mg PO QHS Qty: 90 0RF Primary Care Provider: Catarino Monae Referrals: Catarino Monae, [employer]ATOR[facility] [Primary Care Provider, Family Practice] - As soon as possible Activity Restrictions/Additional Instructions: Your evaluation in the Emergency Department did not reveal any acute reason for admission. However, I want to emphasize that you may be early in the course of a disease process or illness even if it is not present. For this reason you should follow-up within 24 hours for reevaluation with either your primary care physician or if necessary back here in the Emergency Department. You should return to the Emergency Department immediately if your symptoms worsen or new symptoms develop. Print Language: Lithuanian Disposition Disposition: Home, Self Care Discharge Date/Time: 11/28/24 16:17
[2024-11-28] MEDS: 0.9% Normal Saline (1000mL) 1,000 ML 999 ML IV (13:46)
[2024-11-28 13:48] VITALS: O2SAT 96
[2024-11-28 14:00] LABS: Hematocrit 48.9 % (40-54); Hemoglobin 17.3 g/dL (13.0-16.5); Immature Granulocytes Count 0.010 X10^3/uL (0.0-0.0); Mean Corp Hgb Conc 35.4 g/dL (32-36); Mean Corpuscular Volume 97.0 fL (80-94); Mean Platelet Vol. 10.7 fl (6.2-12.0); NRBC Flagged by Analyzer 0 % (0-5); Platelet Count 217 K/mm3 (150-450); RBC Distribution Width CV 12.2 % (11.6-14.6); RBC Distribution Width SD 43.5 fl (35.1-43.9); Red Blood Count 5.04 M/mm3 (4.6-6.2); White Blood Count 3.6 K/mm3 (4.4-11.0)
[2024-11-28 14:08] VITALS: O2SAT 97
[2024-11-28 14:20] LABS: AST(SGOT) 24 U/L (<=37); Alanine Aminotransfer ALT/SGPT 28 U/L (<=46); Albumin, Serum 4.1 g/dL (3.5-5.0); Alkaline Phosphatase 86 U/L (40-129); Anion Gap 10 (5-15); BUN 17 mg/dL (4-19); BUN/Creat Ratio 16.9 RATIO (10-20); Calcium,Total 8.7 mg/dL (7.6-11.0); Carbon Dioxide 21.4 mmol/L (21.0-32.0); Chloride 106 mmol/L (98-108); Estimated Creatinine Clearance 121.70 ml/min (50-250); Globulin 2.9 g/dL (2.2-4.2); Glucose 95 mg/dL (70-99); Lipase 40 U/L (13-75); Potassium 3.8 mmol/L (3.3-5.1)
[2024-11-28 16:13] VITALS: BP 113/58; PULSE 87; RESP 16; TEMP 36.6; O2SAT 99
== END 2024-11-28 16:17 | disposition home or self-care (01) ==
PROVIDERS: Emergency Provider Student in an Organized Health Care Education/Training Program; PCP Nurse Practitioner Family; Visit Provider Student in an Organized Health Care Education/Training Program
DX: R11.2 Nausea with vomiting, unspecified (principal); R25.2 Cramp and spasm; I10 Essential (primary) hypertension; R10.9 Unspecified abdominal pain; R19.7 Diarrhea, unspecified; Z79.899 Other long term (current) drug therapy; Z87.891 Personal history of nicotine dependence
CPT/HCPCS: 74177; 80053; 83690; 85025; 93005; 96374; 96375; 99283; Q9967; A4216; J2405